=== PATIENT | female | born 1975 | race Caucasian/White ===

== ENCOUNTER 2020-06-17 20:23 | Inpatient (IN) | payer OTHER, SELFPAY ==
[2020-06-17 23:18] VITALS: BMI 39.0
--- NOTE | 2020-06-18 04:38 | PC.NURSE ---
Patient anxious/restless/tremulous. Provider earlier saw the patient, ordered Ativan 2 mg stat/administered as ordered/patient compliant/pending effect. Patient up out of room for bathroom use. Will continue to monitor.
--- NOTE | 2020-06-18 05:26 | PC.NURSE ---
Patient in bed appears restless, asking for more medication to make for sleep. VSS. Reporting Ativan 2 mg IM not effective. Patient presenting medication seeking behavior. Will continue to monitor the patient.
--- NOTE | 2020-06-18 06:22 | PC.NURSE ---
Patient continuously asking for more medication, requesting Benadryl IM for migraine. Patient advised to rest in bed. N clinician here for assessment. Patient seems engaged. Will continue to monitor.
--- NOTE | 2020-06-18 07:05 | PC.NURSE ---
REPORT RECIEVED. PT CURRENTLY STANDING IN DOORWAY TO ROOM, ASKING FOR MEDICATIONS, PLAN OF CARE EXPLAINED. PT IS INPATIENT BEDSEARCH.
[2020-06-18 07:42] VITALS: BP 185/109; PULSE 102; RESP 20; TEMP 36.6; O2SAT 96
--- NOTE | 2020-06-18 10:07 | PC.NURSE ---
PT RESTING, CONTINUES TO REPORT ANXIETY, PROVIDER AWARE.
[2020-06-18] MEDS: hydrOXYzine HCL 50 MG TABLET PO (10:16)
--- NOTE | 2020-06-18 12:42 | PC.NURSE ---
LATE ENTRY: PT COMPLAING OF NAUSEA AND VOMITTING, PT WAS SEEN BY TECH TO STICK HER FINGERS DOWN HER THROAT. PT REDIRECTED, PT ASKED TO LEAVE, [facility] CONTACTED, PT IS A SECTION 12, PLAN OF CARE EXPLAINED TO PT.
[2020-06-18 14:29] VITALS: BMI 38.9
[2020-06-18] MEDS: ALPRAZolam 0.5 MG TABLET PO ×2 (14:47→21:23)
--- NOTE | 2020-06-18 14:49 | PC.NURSE ---
PT in bed with complaints of anxiety. Asking for meds frequently. Medicated per eMAR. Cooperative and easily redirectable.
--- NOTE | 2020-06-18 16:35 | PC.NURSE ---
PT is laying restless in bed. Continues to get out of bed and ask for meds. Calm and cooperative for staff.
[2020-06-18 16:50] VITALS: BP 185/107; PULSE 91; RESP 20; TEMP 36.1; O2SAT 97
[2020-06-18] MEDS: LORazepam 1 MG TABLET 2 MG PO (16:56)
[2020-06-18] MEDS: Lidocaine HCl Viscous 2 % 15 ML SOLUTION MUCOUS MEM (18:35)
[2020-06-18] MEDS: Magnesium Hydrox/Alum Hydrox 30 ML ORAL.SUSP PO (18:35)
[2020-06-18 19:52] VITALS: BP 164/98; PULSE 80; RESP 20; TEMP 37; O2SAT 96
[2020-06-18 20:26] VITALS: BP 164/98; PULSE 96
[2020-06-18] MEDS: cloNIDine HCL 0.1 MG TABLET PO (20:26)
--- NOTE | 2020-06-18 21:28 | ED_ITS ---
HPI - Psych General Chief Complaint: Psychiatric Symptoms <Clemencia Francois NP - Last Filed: 06/19/20 01:42> Stated Complaint: crisis <Clemencia Francois NP - Last Filed: 06/19/20 01:42> Time Seen by Provider: 06/18/20 07:44 <Clemencia Francois NP - Last Filed: 06/19/20 01:42> Related Data Home Medications: Home Medications Medication Instructions Recorded Confirmed alprazolam 0.5 mg PO TID 06/17/20 06/18/20 ckhmrybddz-sngmavshrywlt-cesy 2 tab PO DAILY 06/17/20 06/18/20 [Fioricet] desvenlafaxine succinate 100 mg PO DAILY 06/17/20 06/18/20 <Clemencia Francois NP - Last Filed: 06/19/20 01:42> Allergies/Adverse Reactions: Allergies Allergy/AdvReac Type Severity Reaction Status Date / Time methocarbamol [From ROBAXIN] Allergy Intermediate NAUSEA & Unverified 06/04/20 18:47 VOMITING metoclopramide [From REGLAN] Allergy Intermediate PANIC Unverified 06/04/20 18:47 ATTACK sumatriptan [From IMITREX] Allergy Intermediate NAUSEA & Unverified 06/04/20 18:47 VOMITING hydrocodone [HYDROCODONE] Allergy Unknown UNKNOWN Unverified 06/04/20 18:47 tramadol [TRAMADOL] Allergy Unknown UNKNOWN Unverified 06/04/20 18:47 <Clemencia Francois NP - Last Filed: 06/19/20 01:42> [facility] Social History Social History: Social History Advance Directives: No Advance Directives Information Provided: No <Clemencia Francois NP - Last Filed: 06/19/20 01:42> Physical Exam Vital Signs and I&O and Narrative: Vital Signs and I&O: Vital Signs Temp 98.9 F 06/19/20 07:07 Pulse 115 H 06/19/20 07:07 Resp 18 06/19/20 07:07 BP 165/103 H 06/19/20 07:07 Pulse Ox 99 06/19/20 07:07 Intake & Output 06/18/20 06/19/20 06/19/20 18:59 06:59 18:59 Weight 99.79 kg Body Mass Index 38.9 <Clemencia Francois NP - Last Filed: 06/19/20 01:42> Vital Signs and I&O: Vital Signs Temp 98.9 F 06/19/20 07:07 Pulse 115 H 06/19/20 07:07 Resp 18 06/19/20 07:07 BP 165/103 H 06/19/20 07:07 Pulse Ox 99 06/19/20 07:07 Intake & Output 06/18/20 06/19/20 06/19/20 18:59 06:59 18:59 Weight 99.79 kg Body Mass Index 38.9 <Jerrell Salinas MD - Last Filed: 06/19/20 08:28> Course Course Hospital Course: patient was placed in psychiatric pod yesterday. Please refer to my prior note in Ts system for full H&P. At this time, 9:29 p.m. on June 18, 2020 patient is complaining of chest pain. We will order EKG and troponins. <Clemencia Francois NP - Last Filed: 06/19/20 01:42> Reevaluation(s) Reevaluation #1: I have reviewed the chart <Jerrell Salinas MD - Last Filed: 06/19/20 08:28> Time: 21:37 <Clemencia Francois NP - Last Filed: 06/19/20 01:42> 08:27 <Jerrell Salinas MD - Last Filed: 06/19/20 08:28> Reevaluation #2: blood pressure is 198/102, heart rate 87. Patient visibly anxious and withdrawing from benzos diazepam. We will order 10 mg of Valium based on the medications that she received last night which required multiple p.o. Ativan doses and Two IM injections. <Clemencia rFancois NP - Last Filed: 06/19/20 01 :42> MDM - Psych Restraints Face to Face Assessment: Face to Face Assessment: Current Situation: After assessment of the patient, a review of the pertinent medical record and a discussion with nursing staff, I feel the patient requires a restrain interv ention. Reaction To: [] Medical Condition: [] Behavioral State: [] Continued Need: [] <Clemencia Francois NP - Last Filed: 06/19/20 01:42> Medical Records Attestation: I reviewed the patient's medical records. <Clemencia Francois NP - Last Filed: 06/19/20 01:42> Lab Data Labs: Lab Results 06/18/20 Range/Units 22:50 Troponin I High Sens < 3.5 (<3.5-17.0) ng/L <Clemencia Francois NP - Last Filed: 06/19/20 01:42> Lab Results 06/18/20 Range/Units 22:50 Troponin I High Sens < 3.5 (<3.5-17.0) ng/L <Jerrell Salinas MD - Last Filed: 06/19/20 08:28> ECG Data Attestation: I personally reviewed and interpreted this ECG as follows: <Clemencia Francois NP - Last Filed: 06/19/20 01:42> ECG interpretation date: 06/18/20 <Clemencia Francois NP - Last Filed: 06/19/20 01:42> ECG interpretation time: 21:36 <Clemencia Francois NP - Last Filed: 06/19/20 01:42> Interpretation: Normal sinus rhythm, 90 beats per minute with short p.r. interval at 106 milliseconds. No indication of ST elevation or depression. Artifact present. PVCs no longer present when compared to EKG on May 31, 2020 <Clemencia Francois NP - Last Filed: 06/19/20 01:42> Discharge Plan Discharge Clinical Impression: Suicidal ideation, Acute anxiety Bipolar disorder Qualifiers: Active/Remission status: currently active Current bipolar episode type: manic Current episode severity: moderate Qualified Code(s): F31.12 - Bipolar disorder, current episode manic without psychotic features, moderate <Clemencia Francois NP - Last Filed: 06/19/20 01:42> Patient Disposition: Admitted As Inpatient <Clemencia Francois NP - Last Filed: 06/19/20 01:42>
[2020-06-18 21:33] VITALS: BP 198/102; PULSE 87; RESP 20; TEMP 36.7; O2SAT 97
--- NOTE | 2020-06-18 21:36 | ECG_ITS ---
Test Reason : CHEST PAIN Blood Pressure : / mmHG Vent. Rate : 090 BPM Atrial Rate : 090 BPM P-R Int : 106 ms QRS Dur : 078 ms QT Int : 392 ms P-R-T Axes : 008 -06 037 degrees QTc Int : 479 ms Poor data quality, interpretation may be adversely affected Sinus rhythm with short DC Otherwise normal ECG When compared with ECG of 31-MAY-2020 20:38, Premature ventricular complexes are no longer Present Referred By: Clemencia Scott Electronically Signed By:SIRIA PAUL
[2020-06-18] MEDS: diazePAM 5 MG TABLET 10 MG PO (21:44)
--- NOTE | 2020-06-18 21:45 | PC.NURSE ---
Patient reported having anxiety 10/10, diaphoretic, vital assess, BP 198/102 post clonidine 0.1 mg at 2025. Provider notified, patient is withdrawing from benzos, Valium 10 mg ordered/acknowledged/administered as ordered/patient compliant. Patient reported sharp chest pain EKG ordered/completed/resulted/unremarkable. Troponin drawn/resulted/negative. Patient seems sleeping. Will continue to monitor.
[2020-06-18 23:32] LABS: Troponin-I High Sensitivity < 3.5 ng/L (<3.5-17.0)
[2020-06-19] VITALS (8 sets, daily range): BP systolic 136–165; BP diastolic 80–103; PULSE 22–115; RESP 18–22; TEMP 36.5–37.2; O2SAT 96–99
[2020-06-19] MEDS: Magnesium Hydrox/Alum Hydrox 30 ML ORAL.SUSP PO (02:29)
--- NOTE | 2020-06-19 02:30 | PC.NURSE ---
Patient slept for over two hours, woke up asking more medication, Vital assessed f/u BP 141/96 HR 107. Patient made aware medication is not due yet. Compliant GI upset requesting Tums and Maalox. Provider made aware ordered Maalox/administered as ordered. Patient advised not to induce vomit and educated the effects of vomit on upper GI system. Will continue to monitor the patient
--- NOTE | 2020-06-19 04:45 | PC.NURSE ---
Patient continues asking for more Xanax, advised to use coping skills, showered, currently in her bed lying, watching TV. Will continue to monitor.
--- NOTE | 2020-06-19 06:11 | PC.NURSE ---
Patient in bed appears sleeping. Shower helped sleep. No distress observed at this point. Respiration +/=/non-labored bilaterally. Will continue to monitor.
[2020-06-19] MEDS: LORazepam 1 MG TABLET 2 MG PO ×2 (07:11→18:32)
[2020-06-19] MEDS: ALPRAZolam 0.5 MG TABLET PO ×3 (09:37→21:32)
[2020-06-19] MEDS: Ibuprofen 600 MG TABLET PO (09:37)
--- NOTE | 2020-06-19 09:55 | PC.NURSE ---
Pt is resting in bed, c/o headache, medicated per emar. No further symptoms of withdrawals noted.
[2020-06-19 10:30] LABS: SARS COV2 PCR INHOUSE NEGATIVE (Negative)
--- NOTE | 2020-06-19 11:48 | PC.NURSE ---
MIGRAINE PATIENT C/O MIGRAINE WITH 7/10 HEADACHE, NOTIFIED PROVIDER, PATIENT RECENTLY HAD MOTRIN FOR PAIN, NO NEW ORDERS AT THIS TIME, WILL CONTINUE TO MONITOR.
--- NOTE | 2020-06-19 12:03 | PC.NURSE ---
PATIENT CONTINUES TO COME TO NURSING STATION STATES SHE FEELS DEHYDRATED AND FEELS SHE SHOULD BE SEEN IN THE MAIN ED FOR DEHYDRATION, SHE ALSO STATES THAT SHE CONTINUES TO HAVE A HEADACHE DESPITE TAKING HE MOTRIN, WILL NOTIFY THE PROVIDER.
--- NOTE | 2020-06-19 14:15 | PC.NURSE ---
PATIENT CURRENTLY SLEEPING IN ROOM
--- NOTE | 2020-06-19 16:47 | PC.NURSE ---
PATIENT A&OX3, PATIENT AWAITING TO GO TO M5, PATIENT PRESENTLY IN ROOM LAYING DOWN, IS CALM/COMPLIANT, RR EQUAL AND NON LABORED, WILL CONTINUE TO MONITOR.
--- NOTE | 2020-06-19 18:26 | PC.NURSE ---
PT COMPLAINTS PATIENT HAS CONTINUED COMPLAINTS, CURRENTLY SHE IS C/O HEADACHE, AND INCREASED ANXIETY, PT ALSO REQUESTING A GI COCKTAIL SHE HAD ONE YESTERDAY. PROVIDER WAS NOTIFIED.
[2020-06-19] MEDS: Acetaminophen 325 MG TABLET 650 MG PO (18:31)
[2020-06-19] MEDS: Lidocaine HCl Viscous 2 % 15 ML SOLUTION 10 ML MUCOUS MEM (18:37)
[2020-06-19] MEDS: Magnesium Hydrox/Alum Hydrox 30 ML ORAL.SUSP 15 ML PO (18:37)
--- NOTE | 2020-06-19 18:38 | PC.NURSE ---
PATIENT MEDICATED PER NEW ORDERS
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
[2020-06-20] MEDS: hydrOXYzine HCL 25 MG TABLET PO (01:23)
[2020-06-20] MEDS: traZODone HCL 50 MG TABLET PO (01:24)
[2020-06-20] MEDS: Acetaminophen 325 MG TABLET 650 MG PO (01:24)
[2020-06-20] MEDS: ALPRAZolam 0.5 MG TABLET PO ×2 (04:10→09:08)
[2020-06-20 07:11] VITALS: BP 128/85; PULSE 81; RESP 18; TEMP 36.8
[2020-06-20] MEDS: Venlafaxine HCl ER 150 MG CAP.ER.24H PO (09:42)
[2020-06-20 10:00] VITALS: BP 140/81; PULSE 86; RESP 20
--- NOTE | 2020-06-20 11:45 | HO.PS.ADMBH ---
HPI Chief Complaint: crisis Diagnostics Vital Signs (24Hr): Vital Signs - 24 hr 06/19/20 12:00 06/19/20 14:07 06/19/20 16:26 Temperature 98.8 F 98.6 F Pulse Rate 22 L 74 Respiratory Rate 22 H 20 20 Blood Pressure 146/88 H 136/97 H Pulse Oximetry 98 97 06/19/20 18:00 06/19/20 20:00 06/20/20 07:11 Temperature 98.7 F 98.3 F Pulse Rate 95 81 Respiratory Rate 20 18 18 Blood Pressure 142/80 H 128/85 Pulse Oximetry 96 Body Mass Index 38.9 Labs Labs: Laboratory Results - last 48 hr 06/18/20 06/19/20 22:50 09:00 Troponin I High Sens < 3.5 Coronavirus (PCR) NEGATIVE Meds/Allergies Meds Home Medications Medication Instructions Recorded Confirmed Type alprazolam 0.5 mg PO TID 06/17/20 06/18/20 History yqhclnqngt-cvchnblnhrlzc-ndkr 2 tab PO DAILY 06/17/20 06/18/20 History [Fioricet] desvenlafaxine succinate 100 mg PO DAILY 06/17/20 06/18/20 History Allergies Allergies Allergy/AdvReac Type Severity Reaction Status Date / Time methocarbamol [From ROBAXIN] Allergy Intermediate NAUSEA & Unverified 06/04/20 18:47 VOMITING metoclopramide [From REGLAN] Allergy Intermediate PANIC Unverified 06/04/20 18:47 ATTACK sumatriptan [From IMITREX] Allergy Intermediate NAUSEA & Unverified 06/04/20 18:47 VOMITING hydrocodone [HYDROCODONE] Allergy Unknown UNKNOWN Unverified 06/04/20 18:47 tramadol [TRAMADOL] Allergy Unknown UNKNOWN Unverified 06/04/20 18:47 Assessment & Plan Certification I certify that partial hospital treatment is medically necessary due to the symptoms and problems resulting from the patient's mental illness and the failure to treat the patient at the partial hospital level of care would likely result in the patient requiring inpatient psychiatric care which could not be prevented at a less intensive level of care.
[2020-06-20] MEDS: diazePAM 10 MG TABLET PO (12:03)
[2020-06-20] MEDS: diazePAM 5 MG TABLET PO ×2 (14:20→20:21)
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
[2020-06-20] MEDS: Venlafaxine HCl ER 75 MG CAP.ER.24H PO (16:54)
[2020-06-20 19:00] VITALS: BP 135/91; PULSE 102
[2020-06-20] MEDS: cloNIDine HCL 0.1 MG TABLET PO ×2 (19:00→22:58)
[2020-06-20] MEDS: risperiDONE 0.5 MG TABLET PO (20:21)
[2020-06-20] MEDS: hydrOXYzine HCL 25 MG TABLET 50 MG PO ×2 (20:22→22:58)
[2020-06-20] MEDS: OXcarbazepine 150 MG TABLET PO (20:22)
[2020-06-20 20:31] VITALS: BP 138/86; PULSE 80; TEMP 37.1
[2020-06-20] MEDS: Magnesium Hydrox/Alum Hydrox 30 ML ORAL.SUSP PO (21:07)
[2020-06-20 21:19] VITALS: BP 135/91; PULSE 102; TEMP 37.1
[2020-06-20 22:58] VITALS: BP 126/68; PULSE 130
[2020-06-21] VITALS (7 sets, daily range): BP systolic 110–135; BP diastolic 58–83; PULSE 80–114; RESP 16–18; TEMP 36.6–37.3; O2SAT 99
[2020-06-21] MEDS: Acetaminophen 325 MG TABLET 650 MG PO (06:46)
[2020-06-21] MEDS: cloNIDine HCL 0.1 MG TABLET PO ×3 (06:47→17:57)
[2020-06-21] MEDS: Venlafaxine HCl ER 150 MG CAP.ER.24H PO (08:46)
[2020-06-21] MEDS: OXcarbazepine 150 MG TABLET PO ×2 (08:46→14:07)
[2020-06-21] MEDS: diazePAM 5 MG TABLET PO ×3 (08:47→23:16)
--- NOTE | 2020-06-21 12:29 | HO.PSYCHPN ---
Assessment & Plan Assessment & Plan (1) Medication addiction, episodic: Status: Acute Code(s): F19.20 - Other psychoactive substance dependence, uncomplicated Assessment and Plan: pt doesn't feel opiate or benzo are problem (2) Headache: Status: Acute Code(s): R51.9 - Headache, unspecified Assessment and Plan: ongoing issues with this - will consult dr almonte (3) Bipolar disorder: Qualifiers: Active/Remission status: currently active Current bipolar episode type: manic Current episode severity: moderate Qualified Code(s): F31.12 - Bipolar disorder, current episode manic without psychotic features, moderate Status: Acute Code(s): F31.9 - Bipolar disorder, unspecified Assessment and Plan: started on trielptal with good effect (4) Acute anxiety: Status: Acute Code(s): F41.9 - Anxiety disorder, unspecified Assessment and Plan: on valium thru day Greater than 50% of the session was spent on counseling and/or coordination of care Subjective Subjective Date of Service: 06/21/20 Reason For Visit: Pt presented multiple time to ER with increase anx Subjective Notes: 3 Day Interim History: Pt feeling a bit better today, trouble sleeping , headaches woke her up Medication Compliance: Yes Side effects from medications: No Attending Groups: Yes Review of Systems Acute medical concerns: No Medical Review of Systems: changed Review of Systems: ongoing headache but more manageable not as much n/v no sys opiate withdrawl Mental Status Exam Mental Status Exam Narrative: more appropriately dressed and groomed, today less shakey Patient Appearance: Well Grooomed Patient Orientation: Person, Place, Time and Situation Level of Consciousness: Awake and Alert Patient Behavior: Appropriate Mood Description: Anxious Affect Description: Calm Patient Cognition Impaired: No Ability to Follow Directions: Good Speech Pattern: Clear Hallucinations: None Thought Process: Intact and Goal Oriented Thought Content: positive for Intact, positive for Racing (at night) and positive for Goal Oriented Depressive Symptoms: Insomnia, Muscle Tension and Unexplained Headaches Judgement: Fair Diagnostics Vital Signs (24Hr): Vital Signs - 24 hr 06/20/20 19:00 06/20/20 20:31 06/20/20 21:19 Temperature 98.7 F 98.7 F Pulse Rate 102 H 80 102 H Respiratory Rate Blood Pressure 135/91 H 138/86 135/91 H Pulse Oximetry 06/20/20 22:58 06/21/20 06:10 06/21/20 06:47 Temperature 99.2 F Pulse Rate 130 H 90 114 H Respiratory Rate 16 Blood Pressure 126/68 115/59 L 133/82 Pulse Oximetry 99 Body Mass Index Medications Medications Current Medications Generic Name Dose Route Start Last Admin Trade Name Freq PRN Reason Stop Dose Admin Acetaminophen 650 mg 06/19/20 23:31 06/21/20 06:46 Acetaminophen 325 Mg Tablet PO 650 mg Q6H PRN Administration Headache/Pain Mild Scale (1-3) Acetaminophen/Butalbital/Caffeine 2 tab 06/20/20 03:33 06/21/20 08:47 Butalb/Acetamin/Caff 50/325/40 1 Tab Tablet PO 2 tab DAILY PRN Administration migraine Al Hydroxide/Mg Hydroxide 30 ml 06/19/20 23:31 06/20/20 21:07 Magnesium Hydrox/Alum Hydrox 30 Ml Oral.Susp PO 30 ml Q6H PRN Administration Heartburn/Nausea Clonidine HCl 0.1 mg 06/20/20 18:47 06/21/20 06:47 Clonidine Hcl 0.1 Mg Tablet PO 0.1 mg Q4H PRN Administration opiate withdrawl Protocol Diazepam 5 mg 06/20/20 15:00 06/21/20 08:47 Diazepam 5 Mg Tablet PO 5 mg TID NICOLAS Administration Hydroxyzine HCl 50 mg 06/20/20 15:04 06/20/20 22:58 Hydroxyzine Hcl 25 Mg Tablet PO 50 mg BEDTIME MRX1 PRN Administration Anxiety Hydroxyzine HCl 25 mg 06/20/20 17:07 Hydroxyzine Hcl 25 Mg Tablet PO Q6H PRN anxiety/opiate withdrawl Magnesium Hydroxide 30 ml 06/19/20 23:31 Milk Of Magnesia 30 Ml Oral.Susp PO DAILY PRN Constipation Ondansetron HCl 4 mg 06/20/20 13:35 06/20/20 20:26 Ondansetron Odt 4 Mg Tab.Rapdis TRANSLINGU 4 mg Q6H PRN Administration Nausea Oxcarbazepine 150 mg 06/20/20 21:00 06/21/20 08:46 Oxcarbazepine 150 Mg Tablet PO 150 mg TID NICOLAS Administration Risperidone 0.5 mg 06/20/20 21:00 06/20/20 20:21 Risperidone 0.5 Mg Tablet PO 0.5 mg BEDTIME NICOLAS Administration Trazodone HCl 50 mg 06/20/20 15:04 Trazodone Hcl 50 Mg Tablet PO BEDTIME MRX1 PRN Insomnia Venlafaxine HCl 150 mg 06/20/20 09:00 06/21/20 08:46 Venlafaxine Hcl Er 150 Mg Cap.Er.24h PO 150 mg DAILY NICOLAS Administration Venlafaxine HCl 75 mg 06/20/20 17:00 06/20/20 16:54 Venlafaxine Hcl Er 75 Mg Cap.Er.24h PO 75 mg DAILY@1700 NICOLAS Administration will inc hs trielptal and change clonidine to night med Allergies Allergies Allergy/AdvReac Type Severity Reaction Status Date / Time methocarbamol [From ROBAXIN] Allergy Intermediate NAUSEA & Unverified 06/04/20 18:47 VOMITING metoclopramide [From REGLAN] Allergy Intermediate PANIC Unverified 06/04/20 18:47 ATTACK sumatriptan [From IMITREX] Allergy Intermediate NAUSEA & Unverified 06/04/20 18:47 VOMITING hydrocodone [HYDROCODONE] Allergy Unknown UNKNOWN Unverified 06/04/20 18:47 tramadol [TRAMADOL] Allergy Unknown UNKNOWN Unverified 06/04/20 18:47
[2020-06-21] MEDS: Venlafaxine HCl ER 75 MG CAP.ER.24H PO (16:59)
[2020-06-21] MEDS: risperiDONE 0.5 MG TABLET PO (23:16)
[2020-06-21] MEDS: OXcarbazepine 300 MG TABLET PO (23:16)
[2020-06-22] VITALS (7 sets, daily range): BP systolic 102–142; BP diastolic 52–80; PULSE 84–118; RESP 16; TEMP 36.4–37.2
[2020-06-22] MEDS: hydrOXYzine HCL 25 MG TABLET PO ×2 (06:38→12:33)
[2020-06-22] MEDS: Venlafaxine HCl ER 150 MG CAP.ER.24H PO (08:23)
[2020-06-22] MEDS: diazePAM 5 MG TABLET PO (08:24)
[2020-06-22] MEDS: OXcarbazepine 150 MG TABLET PO ×2 (08:24→12:32)
--- NOTE | 2020-06-22 09:33 | P.PNPSI_ITS ---
Assessment & Plan Assessment & Plan (1) Bipolar disorder: Qualifiers: Active/Remission status: currently active Current bipolar episode type: manic Current episode severity: moderate Qualified Code(s): F31.12 - Bipolar disorder, current episode manic without psychotic features, moderate Status: Acute Code(s): F31.9 - Bipolar disorder, unspecified Assessment and Plan: continue medications (2) Suicidal ideation: Status: Acute Code(s): R45.851 - Suicidal ideations Assessment and Plan: monitor for safety (3) Acute anxiety: Status: Acute Code(s): F41.9 - Anxiety disorder, unspecified Assessment and Plan: switch to lorazepam from Valium. Scheduled doses of lorazepam and clonidine if blood pressure holds (4) Medication addiction, episodic: Status: Acute Code(s): F19.20 - Other psychoactive substance dependence, uncomplicated Assessment and Plan: continue monitoring medication use and education Greater than 50% of the session was spent on counseling and/or coordination of care Subjective Subjective Date of Service: 06/22/20 Reason For Visit: Pt presented multiple time to ER with increase anx Subjective Notes: Conditional Voluntary Interim History: with high anxiety and panic. Almost uninterrupted hy perventilation. Patient has ice pack. We discussed medication changes. Patient fell clonidine was helpful and will switch from Valium to lorazepam. History of overuse of medication noted but will monitor Medication Compliance: Yes Side effects from medications: No Attending Groups: Intermittent Mental Status Exam Mental Status Exam Patient Appearance: Well Grooomed Patient Orientation: Person, Place, Time and Situation Level of Consciousness: Awake and Alert Patient Behavior: Appropriate and Anxious Mood Description: Anxious ( Severe panic and hyperventilation noted) and Nervous Affect Description: Calm and Anxious Patient Cognition Impaired: No Ability to Follow Directions: Good Speech Pattern: Clear Hallucinations: None Thought Process: Intact and Goal Oriented Thought Content: positive for Intact, positive for Racing (at night) and positive for Goal Oriented Depressive Symptoms: Insomnia, Muscle Tension and Unexplained Headaches Judgement: Fair Diagnostics Vital Signs (24Hr): Vital Signs - 24 hr 06/21/20 10:00 06/21/20 14:00 06/21/20 17:57 Temperature 98 F Pulse Rate 88 87 107 H Respiratory Rate 18 17 Blood Pressure 119/62 135/83 116/80 Pulse Oximetry 99 06/21/20 18:00 06/21/20 23:15 06/22/20 06:10 Temperature 98.5 F 98.4 F 97.5 F Pulse Rate 107 H 80 114 H Respiratory Rate 16 Blood Pressure 116/80 110/58 L 108/63 Pulse Oximetry Body Mass Index 38.9 Medications Medications Current Medications Generic Name Dose Route Start Last Admin Trade Name Freq PRN Reason Stop Dose Admin Acetaminophen 650 mg 06/19/20 23:31 06/21/20 06:46 Acetaminophen 325 Mg Tablet PO 650 mg Q6H PRN Administration Headache/Pain Mild Scale (1-3) Acetaminophen/Butalbital/Caffeine 2 tab 06/20/20 03:33 06/21/20 08:47 Butalb/Acetamin/Caff 50/325/40 1 Tab Tablet PO 2 tab DAILY PRN Administration migraine Al Hydroxide/Mg Hydroxide 30 ml 06/19/20 23:31 06/20/20 21:07 Magnesium Hydrox/Alum Hydrox 30 Ml Oral.Susp PO 30 ml Q6H PRN Administration Heartburn/Nausea Clonidine HCl 0.1 mg 06/21/20 20:01 Clonidine Hcl 0.1 Mg Tablet PO BEDTIME MRX1 PRN opiate withdrawl Protocol Diazepam 5 mg 06/20/20 15:00 06/22/20 08:24 Diazepam 5 Mg Tablet PO 5 mg TID NICOLAS Administration Hydroxyzine HCl 50 mg 06/20/20 15:04 06/20/20 22:58 Hydroxyzine Hcl 25 Mg Tablet PO 50 mg BEDTIME MRX1 PRN Administration Anxiety Hydroxyzine HCl 25 mg 06/20/20 17:07 06/22/20 06:38 Hydroxyzine Hcl 25 Mg Tablet PO 25 mg Q6H PRN Administration anxiety/opiate withdrawl Magnesium Hydroxide 30 ml 06/19/20 23:31 Milk Of Magnesia 30 Ml Oral.Susp PO DAILY PRN Constipation Ondansetron HCl 4 mg 06/20/20 13:35 06/22/20 08:24 Ondansetron Odt 4 Mg Tab.Rapdis TRANSLINGU 4 mg Q6H PRN Administration Nausea Oxcarbazepine 150 mg 06/22/20 08:30 06/22/20 08:24 Oxcarbazepine 150 Mg Tablet PO 150 mg BID@0830,1330 NICOLAS Administration Oxcarbazepine 300 mg 06/21/20 21:00 06/21/20 23:16 Oxcarbazepine 300 Mg Tablet PO 300 mg BEDTIME NICOLAS Administration Risperidone 0.5 mg 06/20/20 21:00 06/21/20 23:16 Risperidone 0.5 Mg Tablet PO 0.5 mg BEDTIME NICOLAS Administration Trazodone HCl 50 mg 06/20/20 15:04 Trazodone Hcl 50 Mg Tablet PO BEDTIME MRX1 PRN Insomnia Venlafaxine HCl 150 mg 06/20/20 09:00 06/22/20 08:23 Venlafaxine Hcl Er 150 Mg Cap.Er.24h PO 150 mg DAILY NICOLAS Administration Venlafaxine HCl 75 mg 06/20/20 17:00 06/21/20 16:59 Venlafaxine Hcl Er 75 Mg Cap.Er.24h PO 75 mg DAILY@1700 NICOLAS Administration Allergies Allergies Allergy/AdvReac Type Severity Reaction Status Date / Time methocarbamol [From ROBAXIN] Allergy Intermediate NAUSEA & Unverified 06/04/20 18:47 VOMITING metoclopramide [From REGLAN] Allergy Intermediate PANIC Unverified 06/04/20 18:47 ATTACK sumatriptan [From IMITREX] Allergy Intermediate NAUSEA & Unverified 06/04/20 18:47 VOMITING hydrocodone [HYDROCODONE] Allergy Unknown UNKNOWN Unverified 06/04/20 18:47 tramadol [TRAMADOL] Allergy Unknown UNKNOWN Unverified 06/04/20 18:47
--- NOTE | 2020-06-22 10:44 | P.CNNE_ITS ---
History of Present Illness Data of Consult Primary Care Provider: Unknown Physician Review of Systems Review of Systems: Mental Status: Normal attention, orientation, memory and anxious and depressed affect. Cranial Nerves: Pupils are equal, round and reactive to light. External occular muscles are intact. Visual pryor are full. Face is symmetrical. Facial sensations are normal. Tongue is midline. Palate elevates symmetrically. Shoulder shrugging is normal. Hearing to bedside conversation is normal. Motor Examination: Normal muscle tone, bulk and strength, Deep tendon reflexes are 2+ , Plantars are flexor . Sensory Exam: .. Coordination: no ataxia, no titubation. Gait Exam: Within normal limits. Cerebellar Signs: [id number] and [id number] is normal.. Extrapyramidal System: No tremor, rigidity with normal facial expressions. Pronator Drift: not present . Involuntary Movements: No tremors seen . Speech: Normal. ENT: Reports Normal hearing present Neurologic: Reports Normal hearing present [facility] Social History Social History Currently Displaying Signs/Symptoms of Drug Intoxication Withdrawal: No Advance Directives: No Advance Directives Information Provided: No Suicidal Behavior: Aborted suicide attempts [place] Symptoms: Anxiety Access to Firearms: No Do you have thoughts of harming others: None Do you have a plan to hurt others: No Plan Meds Allergies Allergy/AdvReac Type Severity Reaction Status Date / Time methocarbamol [From ROBAXIN] Allergy Intermediate NAUSEA & Unverified 06/04/20 18:47 VOMITING metoclopramide [From REGLAN] Allergy Intermediate PANIC Unverified 06/04/20 18:47 ATTACK sumatriptan [From IMITREX] Allergy Intermediate NAUSEA & Unverified 06/04/20 18:47 VOMITING hydrocodone [HYDROCODONE] Allergy Unknown UNKNOWN Unverified 06/04/20 18:47 tramadol [TRAMADOL] Allergy Unknown UNKNOWN Unverified 06/04/20 18:47 Home Medications Medication Instructions Recorded Confirmed Type alprazolam 0.5 mg PO TID 06/17/20 06/18/20 History [id number]-wpggqziqrgded-[id number] 2 tab PO DAILY 06/17/20 06/18/20 History [Fioricet] desvenlafaxine succinate 100 mg PO DAILY 06/17/20 06/18/20 History Physical Exam Vital Signs and I&O and Narrative: Vital Signs and I&O: Vital Signs Temp 97.5 F 06/22/20 06:10 Pulse 114 H 06/22/20 06:10 Resp 16 06/22/20 06:10 BP 108/63 06/22/20 06:10 Pulse Ox 99 06/21/20 14:00 Body Mass Index 38.9 Mental status examination: Normal attention, orientation, very anxious affect Cranial Nerve examination: Pupils are equal, round and reactive to light. External ocular muscles are intact. Visual pryor are full. Face is symmetrical. Facial sensations are normal. Tongue is midline. Palate elevates symmetrically. Shoulder shrugging is normal. Hearing to bedside conversation is normal. Motor examination: DTRs are trace Cerebellar examination: Finger to nose is normal. Gait: Within normal limits. Speech: Normal. Extrapyramidal system: Within normal limits. Involuntary movements: None. GENERAL APPEARANCE: normal, in no acute distress. HEAD: normocephalic, atraumatic. EYES: sclera non-icteric, conjunctiva clear. EARS: auditory canal clear, tympanic membrane intact, clear. NOSE: no lesions. ORAL CAVITY: gums normal, mucosa moist, no lesions. THROAT: clear. NECK/THYROID: Severe paraspinal muscle spasm SKIN: no rashes, no significant birthmarks. HEART: S1, S2 normal, no murmurs. LUNGS: clear anteriorly and posteriorly. CHEST: no gross rib deformity, clear to auscultation. EXTREMITIES: no edema. PSYCH: alert, oriented, cognitive function intact, cooperative with exam. Neuro: Cranial nerves: Yes Normal hearing present Assessment and Plan (1) Headache: Status: Acute Impression: a: chronic intractable migraine with menstrual migraine b: severe anxiety c: cervical paraspinal muscle spasm likely due to pscyhological issues rec: a: aggressive treatment of anxiety/deprssion b: PRN oxycodone 5mg one qd for menstrual migraine c: I have tried most conventional medicines for headaches with her and none have worked, likely due to underlying psychological issues. Its treatment may help.
[2020-06-22] MEDS: cloNIDine HCL 0.1 MG TABLET PO ×3 (13:32→20:12)
[2020-06-22] MEDS: LORazepam 1 MG TABLET PO ×3 (13:54→20:12)
[2020-06-22] MEDS: Venlafaxine HCl ER 75 MG CAP.ER.24H PO (16:22)
[2020-06-22] MEDS: risperiDONE 0.5 MG TABLET PO (20:11)
[2020-06-22] MEDS: OXcarbazepine 300 MG TABLET PO (20:11)
[2020-06-23] VITALS (8 sets, daily range): BP systolic 111–160; BP diastolic 57–105; PULSE 87–125; RESP 22; TEMP 36.6–36.7; O2SAT 99–100
[2020-06-23] MEDS: LORazepam 1 MG TABLET PO ×5 (03:31→20:58)
[2020-06-23] MEDS: hydrOXYzine HCL 25 MG TABLET PO (05:06)
[2020-06-23] MEDS: cloNIDine HCL 0.1 MG TABLET PO ×4 (05:06→20:57)
[2020-06-23] MEDS: Venlafaxine HCl ER 150 MG CAP.ER.24H PO (08:44)
[2020-06-23] MEDS: OXcarbazepine 150 MG TABLET PO ×2 (08:44→13:34)
--- NOTE | 2020-06-23 09:35 | HO.PSYCHPN ---
Assessment & Plan Assessment & Plan (1) Suicidal ideation: Status: Acute Code(s): R45.851 - Suicidal ideations Assessment and Plan: safety plan 15 minutes checks (2) Acute anxiety: Status: Acute Code(s): F41.9 - Anxiety disorder, unspecified Assessment and Plan: continue with scheduled doses of lorazepam and clonidine (3) Medication addiction, episodic: Status: Acute Code(s): F19.20 - Other psychoactive substance dependence, uncomplicated Assessment and Plan: discussed responsible use Greater than 50% of the session was spent on counseling and/or coordination of care Patient educated on: diagnosis and medication risk/benefits Informed Consent: understands Reason for contiued inpatient stay Substantial Risk for: rapid decompensation Subjective Subjective Date of Service: 06/23/20 Reason For Visit: Pt presented multiple time to ER with increase anx Subjective Notes: Conditional Voluntary and 3 Day Interim History: Patient remains anxious and panicky. Had a difficult night. Claims Ativan was not effective as she had explosive diarrhea. Non medication approaches discussed. Later this morning patient was feeling somewhat better. No medication changes today appropriate and responsible medication use discussed with patient. We discussed FMLA and paperwork was completed will continue to monitor medication use Medication Compliance: Yes Side effects from medications: No Attending Groups: Yes Mental Status Exam Mental Status Exam Patient Appearance: Fatigued Patient Orientation: Person, Place, Time and Situation Level of Consciousness: Awake and Appropriate Patient Behavior: Appropriate and Restless ( improved) Behavior Comments: decrease hyperventilation noted Mood Description: Anxious and Labile Affect Description: Anxious, Labile and Apprehensive Patient Cognition Impaired: No Ability to Follow Directions: Excellent Speech Pattern: Clear and Rapid Memory Description: Intact Hallucinations: None Delusions: Not Present Perceptual Disturbances: Depersonalization Thought Process: Intact Thought Content: positive for Intact and positive for Suicidal Ideation ( denied) Depressive Symptoms: Increased Anxiety, Difficulty Sleeping and Changes in Appetite Abnormal Motor Activity Signs and Symptoms: Agitation Judgement: Fair Diagnostics Vital Signs (24Hr): Vital Signs - 24 hr 06/22/20 13:04 06/22/20 13:32 06/22/20 16:25 Temperature 98.8 F Pulse Rate 84 84 108 H Respiratory Rate Blood Pressure 142/80 H 142/80 H 141/80 H Pulse Oximetry 06/22/20 17:00 06/22/20 20:08 06/22/20 20:12 Temperature 98.9 F 98.2 F Pulse Rate 108 H 118 H 118 H Respiratory Rate Blood Pressure 141/80 H 102/52 L 102/52 L Pulse Oximetry 06/23/20 05:00 06/23/20 05:06 06/23/20 06:20 Temperature 98.1 F Pulse Rate 125 H 124 H 120 H Respiratory Rate 22 H Blood Pressure 143/70 H 143/70 H Pulse Oximetry 99 100 06/23/20 08:46 Temperature Pulse Rate 104 H Respiratory Rate Blood Pressure 160/105 H Pulse Oximetry Body Mass Index 38.9 Medications Medications Current Medications Generic Name Dose Route Start Last Admin Trade Name Freq PRN Reason Stop Dose Admin Acetaminophen 650 mg 06/19/20 23:31 06/21/20 06:46 Acetaminophen 325 Mg Tablet PO 650 mg Q6H PRN Administration Headache/Pain Mild Scale (1-3) Acetaminophen/Butalbital/Caffeine 2 tab 06/20/20 03:33 06/22/20 10:46 Butalb/Acetamin/Caff 50/325/40 1 Tab Tablet PO 2 tab DAILY PRN Administration migraine Al Hydroxide/Mg Hydroxide 30 ml 06/19/20 23:31 06/20/20 21:07 Magnesium Hydrox/Alum Hydrox 30 Ml Oral.Susp PO 30 ml Q6H PRN Administration Heartburn/Nausea Clonidine HCl 0.1 mg 06/22/20 13:04 06/23/20 05:06 Clonidine Hcl 0.1 Mg Tablet PO 0.1 mg TID PRN Administration opiate withdrawal Protocol Clonidine HCl 0.1 mg 06/22/20 15:00 06/23/20 08:46 Clonidine Hcl 0.1 Mg Tablet PO 0.1 mg TID NICOLAS Administration Protocol Hydroxyzine HCl 50 mg 06/20/20 15:04 06/20/20 22:58 Hydroxyzine Hcl 25 Mg Tablet PO 50 mg BEDTIME MRX1 PRN Administration Anxiety Hydroxyzine HCl 25 mg 06/20/20 17:07 06/23/20 05:06 Hydroxyzine Hcl 25 Mg Tablet PO 25 mg Q6H PRN Administration anxiety/opiate withdrawl Lorazepam 1 mg 06/22/20 13:40 06/23/20 08:45 Lorazepam 1 Mg Tablet PO 1 mg QID NICOLAS Administration Lorazepam 1 mg 06/22/20 13:37 06/23/20 03:31 Lorazepam 1 Mg Tablet PO 1 mg BID PRN Administration Anxiety Magnesium Hydroxide 30 ml 06/19/20 23:31 Milk Of Magnesia 30 Ml Oral.Susp PO DAILY PRN Constipation Ondansetron HCl 4 mg 06/20/20 13:35 06/23/20 05:06 Ondansetron Odt 4 Mg Tab.Rapdis TRANSLINGU 4 mg Q6H PRN Administration Nausea Oxcarbazepine 150 mg 06/22/20 08:30 06/23/20 08:44 Oxcarbazepine 150 Mg Tablet PO 150 mg BID@0830,1330 NICOLAS Administration Oxcarbazepine 300 mg 06/21/20 21:00 06/22/20 20:11 Oxcarbazepine 300 Mg Tablet PO 300 mg BEDTIME NICOLAS Administration Risperidone 0.5 mg 06/20/20 21:00 06/22/20 20:11 Risperidone 0.5 Mg Tablet PO 0.5 mg BEDTIME NICOLAS Administration Trazodone HCl 50 mg 06/20/20 15:04 Trazodone Hcl 50 Mg Tablet PO BEDTIME MRX1 PRN Insomnia Venlafaxine HCl 150 mg 06/20/20 09:00 06/23/20 08:44 Venlafaxine Hcl Er 150 Mg Cap.Er.24h PO 150 mg DAILY NICOLAS Administration Venlafaxine HCl 75 mg 06/20/20 17:00 06/22/20 16:22 Venlafaxine Hcl Er 75 Mg Cap.Er.24h PO 75 mg DAILY@1700 NICOLAS Administration Allergies Allergies Allergy/AdvReac Type Severity Reaction Status Date / Time methocarbamol [From ROBAXIN] Allergy Intermediate NAUSEA & Unverified 06/04/20 18:47 VOMITING metoclopramide [From REGLAN] Allergy Intermediate PANIC Unverified 06/04/20 18:47 ATTACK sumatriptan [From IMITREX] Allergy Intermediate NAUSEA & Unverified 06/04/20 18:47 VOMITING hydrocodone [HYDROCODONE] Allergy Unknown UNKNOWN Unverified 06/04/20 18:47 tramadol [TRAMADOL] Allergy Unknown UNKNOWN Unverified 06/04/20 18:47
--- NOTE | 2020-06-23 14:39 | PC.NURSE ---
Pt filed a 3-Day Notice on Saturday 06/23 up on Tuesday 06/26
[2020-06-23] MEDS: Venlafaxine HCl ER 75 MG CAP.ER.24H PO (17:00)
[2020-06-23] MEDS: risperiDONE 0.5 MG TABLET PO (20:58)
[2020-06-23] MEDS: OXcarbazepine 300 MG TABLET PO (20:58)
[2020-06-24] VITALS (7 sets, daily range): BP systolic 107–138; BP diastolic 61–88; PULSE 92–113; RESP 16; TEMP 36.8–36.9
[2020-06-24] MEDS: LORazepam 1 MG TABLET PO ×5 (04:32→20:32)
[2020-06-24] MEDS: cloNIDine HCL 0.1 MG TABLET PO ×4 (06:40→20:32)
[2020-06-24] MEDS: OXcarbazepine 150 MG TABLET PO ×2 (08:23→13:04)
[2020-06-24] MEDS: Venlafaxine HCl ER 150 MG CAP.ER.24H PO (08:24)
--- NOTE | 2020-06-24 09:29 | HO.PSYCHPN ---
Assessment & Plan Assessment & Plan (1) Acute anxiety: Status: Acute Code(s): F41.9 - Anxiety disorder, unspecified Assessment and Plan: ct meds. Reduce from tomorrow (2) Medication addiction, episodic: Status: Acute Code(s): F19.20 - Other psychoactive substance dependence, uncomplicated Assessment and Plan: counselling (3) Suicidal ideation: Status: Acute Code(s): R45.851 - Suicidal ideations Assessment and Plan: Safety plan Greater than 50% of the session was spent on counseling and/or coordination of care Patient educated on: diagnosis Informed Consent: understands Reason for contiued inpatient stay Substantial Risk for: rapid decompensation Subjective Subjective Date of Service: 06/24/20 Reason For Visit: Pt presented multiple time to ER with increase anx Subjective Notes: 3 Day Interim History: Much improved except for panic at night. We discussed maintainence dose starting tomorrow. No SO. Dc Fri Medication Compliance: Yes Side effects from medications: No Attending Groups: Yes Mental Status Exam Mental Status Exam Patient Appearance: Well Grooomed Patient Orientation: Person, Place, Time and Situation Level of Consciousness: Awake Patient Behavior: Appropriate and Anxious Mood Description: Depressed and Anxious Affect Description: Fearful and Anxious Patient Cognition Impaired: No Ability to Follow Directions: Excellent Speech Pattern: Clear Memory Description: Intact Hallucinations: None Thought Content: positive for Intact Depressive Symptoms: Difficulty Sleeping, Crying Spells and Unhappiness Abnormal Motor Activity Signs and Symptoms: Agitation Judgement: Fair Diagnostics Vital Signs (24Hr): Vital Signs - 24 hr 06/23/20 15:23 06/23/20 15:25 06/23/20 16:13 Temperature 97.9 F Pulse Rate 87 87 95 Respiratory Rate Blood Pressure 112/57 L 112/57 L 111/66 06/23/20 20:57 06/24/20 05:55 06/24/20 06:40 Temperature 98.4 F Pulse Rate 95 94 94 Respiratory Rate 16 Blood Pressure 111/66 138/78 138/78 06/24/20 08:25 Temperature Pulse Rate 94 Respiratory Rate Blood Pressure 138/78 Body Mass Index 38.9 Medications Medications Current Medications Generic Name Dose Route Start Last Admin Trade Name Freq PRN Reason Stop Dose Admin Acetaminophen 650 mg 06/19/20 23:31 06/21/20 06:46 Acetaminophen 325 Mg Tablet PO 650 mg Q6H PRN Administration Headache/Pain Mild Scale (1-3) Acetaminophen/Butalbital/Caffeine 2 tab 06/20/20 03:33 06/22/20 10:46 Butalb/Acetamin/Caff 50/325/40 1 Tab Tablet PO 2 tab DAILY PRN Administration migraine Al Hydroxide/Mg Hydroxide 30 ml 06/19/20 23:31 06/20/20 21:07 Magnesium Hydrox/Alum Hydrox 30 Ml Oral.Susp PO 30 ml Q6H PRN Administration Heartburn/Nausea Clonidine HCl 0.1 mg 06/22/20 13:04 06/24/20 06:40 Clonidine Hcl 0.1 Mg Tablet PO 0.1 mg TID PRN Administration opiate withdrawal Protocol Clonidine HCl 0.1 mg 06/22/20 15:00 06/24/20 08:25 Clonidine Hcl 0.1 Mg Tablet PO 0.1 mg TID NICOLAS Administration Protocol Hydroxyzine HCl 50 mg 06/20/20 15:04 06/20/20 22:58 Hydroxyzine Hcl 25 Mg Tablet PO 50 mg BEDTIME MRX1 PRN Administration Anxiety Hydroxyzine HCl 25 mg 06/20/20 17:07 06/23/20 05:06 Hydroxyzine Hcl 25 Mg Tablet PO 25 mg Q6H PRN Administration anxiety/opiate withdrawl Lorazepam 1 mg 06/22/20 13:40 06/24/20 08:24 Lorazepam 1 Mg Tablet PO 1 mg QID NICOLAS Administration Lorazepam 1 mg 06/22/20 13:37 06/24/20 04:32 Lorazepam 1 Mg Tablet PO 1 mg BID PRN Administration Anxiety Magnesium Hydroxide 30 ml 06/19/20 23:31 Milk Of Magnesia 30 Ml Oral.Susp PO DAILY PRN Constipation Ondansetron HCl 4 mg 06/20/20 13:35 06/23/20 05:06 Ondansetron Odt 4 Mg Tab.Rapdis TRANSLINGU 4 mg Q6H PRN Administration Nausea Oxcarbazepine 150 mg 06/22/20 08:30 06/24/20 08:23 Oxcarbazepine 150 Mg Tablet PO 150 mg BID@0830,1330 NICOLAS Administration Oxcarbazepine 300 mg 06/21/20 21:00 06/23/20 20:58 Oxcarbazepine 300 Mg Tablet PO 300 mg BEDTIME NICOLAS Administration Risperidone 0.5 mg 06/20/20 21:00 06/23/20 20:58 Risperidone 0.5 Mg Tablet PO 0.5 mg BEDTIME NICOLAS Administration Trazodone HCl 50 mg 06/20/20 15:04 Trazodone Hcl 50 Mg Tablet PO BEDTIME MRX1 PRN Insomnia Venlafaxine HCl 150 mg 06/20/20 09:00 06/24/20 08:24 Venlafaxine Hcl Er 150 Mg Cap.Er.24h PO 150 mg DAILY NICOLAS Administration Venlafaxine HCl 75 mg 06/20/20 17:00 06/23/20 17:00 Venlafaxine Hcl Er 75 Mg Cap.Er.24h PO 75 mg DAILY@1700 NICOLAS Administration Allergies Allergies Allergy/AdvReac Type Severity Reaction Status Date / Time methocarbamol [From ROBAXIN] Allergy Intermediate NAUSEA & Unverified 06/04/20 18:47 VOMITING metoclopramide [From REGLAN] Allergy Intermediate PANIC Unverified 06/04/20 18:47 ATTACK sumatriptan [From IMITREX] Allergy Intermediate NAUSEA & Unverified 06/04/20 18:47 VOMITING hydrocodone [HYDROCODONE] Allergy Unknown UNKNOWN Unverified 06/04/20 18:47 tramadol [TRAMADOL] Allergy Unknown UNKNOWN Unverified 06/04/20 18:47
--- NOTE | 2020-06-24 13:30 | PC.NURSE ---
Completed pt's Admission and Admission Risk Assessment. Some sections not completed as they are assessed BID since admission.
[2020-06-24] MEDS: Venlafaxine HCl ER 75 MG CAP.ER.24H PO (16:55)
[2020-06-24] MEDS: risperiDONE 0.5 MG TABLET PO (20:32)
[2020-06-24] MEDS: OXcarbazepine 300 MG TABLET PO (20:32)
[2020-06-25 07:00] VITALS: BMI 33.0
[2020-06-25 07:01] VITALS: BP 105/58; PULSE 99; RESP 16; TEMP 36.3; O2SAT 16
--- NOTE | 2020-06-25 07:04 | HO.PSYCHPN ---
Subjective Subjective Reason For Visit: Pt presented multiple time to ER with increase anx Interim History: Much improved except for panic at night. We discussed maintainence dose starting tomorrow. No SI. Dc Fri Mental Status Exam Mental Status Exam Narrative: more appropriately dressed and groomed, today less shakey Patient Appearance: Well Grooomed Patient Orientation: Person, Place, Time and Situation Level of Consciousness: Awake Patient Behavior: Appropriate and Anxious Behavior Comments: decrease hyperventilation noted Mood Description: Depressed and Anxious Affect Description: Fearful and Anxious Patient Cognition Impaired: No Ability to Follow Directions: Excellent Speech Pattern: Clear Memory Description: Intact Diagnostics Vital Signs (24Hr): Vital Signs - 24 hr 06/24/20 08:25 06/24/20 10:00 06/24/20 14:33 Temperature Pulse Rate 94 96 92 Respiratory Rate Blood Pressure 138/78 130/88 107/61 Pulse Oximetry 06/24/20 20:32 06/24/20 20:34 06/25/20 07:01 Temperature 98.2 F 97.4 F Pulse Rate 113 H 99 Respiratory Rate 16 Blood Pressure 107/66 105/58 L Pulse Oximetry 16 L Body Mass Index 38.9 Medications Medications Current Medications Generic Name Dose Route Start Last Admin Trade Name Freq PRN Reason Stop Dose Admin Acetaminophen 650 mg 06/19/20 23:31 06/21/20 06:46 Acetaminophen 325 Mg Tablet PO 650 mg Q6H PRN Administration Headache/Pain Mild Scale (1-3) Acetaminophen/Butalbital/Caffeine 2 tab 06/20/20 03:33 06/22/20 10:46 Butalb/Acetamin/Caff 50/325/40 1 Tab Tablet PO 2 tab DAILY PRN Administration migraine Al Hydroxide/Mg Hydroxide 30 ml 06/19/20 23:31 06/20/20 21:07 Magnesium Hydrox/Alum Hydrox 30 Ml Oral.Susp PO 30 ml Q6H PRN Administration Heartburn/Nausea Clonidine HCl 0.1 mg 06/22/20 13:04 06/24/20 06:40 Clonidine Hcl 0.1 Mg Tablet PO 0.1 mg TID PRN Administration opiate withdrawal Protocol Clonidine HCl 0.1 mg 06/22/20 15:00 06/24/20 20:32 Clonidine Hcl 0.1 Mg Tablet PO 0.1 mg TID NICOLAS Administration Protocol Hydroxyzine HCl 50 mg 06/20/20 15:04 06/20/20 22:58 Hydroxyzine Hcl 25 Mg Tablet PO 50 mg BEDTIME MRX1 PRN Administration Anxiety Hydroxyzine HCl 25 mg 06/20/20 17:07 06/23/20 05:06 Hydroxyzine Hcl 25 Mg Tablet PO 25 mg Q6H PRN Administration anxiety/opiate withdrawl Lorazepam 1 mg 06/22/20 13:40 06/24/20 20:32 Lorazepam 1 Mg Tablet PO 1 mg QID NICOLAS Administration Lorazepam 1 mg 06/22/20 13:37 06/24/20 04:32 Lorazepam 1 Mg Tablet PO 1 mg BID PRN Administration Anxiety Magnesium Hydroxide 30 ml 06/19/20 23:31 Milk Of Magnesia 30 Ml Oral.Susp PO DAILY PRN Constipation Ondansetron HCl 4 mg 06/20/20 13:35 06/23/20 05:06 Ondansetron Odt 4 Mg Tab.Rapdis TRANSLINGU 4 mg Q6H PRN Administration Nausea Oxcarbazepine 300 mg 06/24/20 21:00 06/24/20 20:32 Oxcarbazepine 300 Mg Tablet PO 300 mg BID NICOLAS Administration Risperidone 0.5 mg 06/20/20 21:00 06/24/20 20:32 Risperidone 0.5 Mg Tablet PO 0.5 mg BEDTIME NICOLAS Administration Trazodone HCl 50 mg 06/20/20 15:04 Trazodone Hcl 50 Mg Tablet PO BEDTIME MRX1 PRN Insomnia Venlafaxine HCl 150 mg 06/20/20 09:00 06/24/20 08:24 Venlafaxine Hcl Er 150 Mg Cap.Er.24h PO 150 mg DAILY NICOLAS Administration Venlafaxine HCl 75 mg 06/20/20 17:00 06/24/20 16:55 Venlafaxine Hcl Er 75 Mg Cap.Er.24h PO 75 mg DAILY@1700 NICOLAS Administration Allergies Allergies Allergy/AdvReac Type Severity Reaction Status Date / Time methocarbamol [From ROBAXIN] Allergy Intermediate NAUSEA & Unverified 06/04/20 18:47 VOMITING metoclopramide [From REGLAN] Allergy Intermediate PANIC Unverified 06/04/20 18:47 ATTACK sumatriptan [From IMITREX] Allergy Intermediate NAUSEA & Unverified 06/04/20 18:47 VOMITING hydrocodone [HYDROCODONE] Allergy Unknown UNKNOWN Unverified 06/04/20 18:47 tramadol [TRAMADOL] Allergy Unknown UNKNOWN Unverified 06/04/20 18:47 Assessment & Plan Assessment & Plan (1) Acute anxiety: Status: Acute Code(s): F41.9 - Anxiety disorder, unspecified Assessment and Plan: ct meds. Reduce Lorazepam (2) Medication addiction, episodic: Status: Acute Code(s): F19.20 - Other psychoactive substance dependence, uncomplicated Assessment and Plan: counseling (3) Suicidal ideation: Status: Acute Code(s): R45.851 - Suicidal ideations Assessment and Plan: Safety plan Greater than 50% of the session was spent on counseling and/or coordination of care
[2020-06-25 08:41] VITALS: BP 105/58; PULSE 99
[2020-06-25] MEDS: Venlafaxine HCl ER 150 MG CAP.ER.24H PO (08:41)
[2020-06-25] MEDS: LORazepam 1 MG TABLET PO ×4 (08:41→22:10)
[2020-06-25] MEDS: OXcarbazepine 300 MG TABLET PO ×2 (08:41→22:10)
[2020-06-25] MEDS: cloNIDine HCL 0.1 MG TABLET PO ×3 (08:41→22:10)
[2020-06-25 14:10] VITALS: BP 122/65; PULSE 118
[2020-06-25] MEDS: Venlafaxine HCl ER 75 MG CAP.ER.24H PO (16:45)
[2020-06-25 22:00] VITALS: TEMP 36.8
[2020-06-25 22:10] VITALS: BP 101/56; PULSE 101
[2020-06-26 03:35] VITALS: BP 114/69; PULSE 115; RESP 18; TEMP 36.6; O2SAT 99
[2020-06-26] MEDS: LORazepam 1 MG TABLET PO ×2 (03:35→08:48)
[2020-06-26] MEDS: OXcarbazepine 300 MG TABLET PO (08:47)
[2020-06-26 08:48] VITALS: BP 114/69; PULSE 115
[2020-06-26] MEDS: cloNIDine HCL 0.1 MG TABLET PO (08:48)
[2020-06-26] MEDS: Venlafaxine HCl ER 150 MG CAP.ER.24H PO (08:48)
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
== END 2020-06-26 12:12 | disposition home or self-care (01) | DRG 885 ==
LOC: HO.ED 06-19 01:42 → HO.PM5 06-19 18:02
PROVIDERS: Admitting Provider Psychiatry & Neurology Psychiatry; Emergency Provider Nurse Practitioner Family; Visit Provider Psychiatry & Neurology Psychiatry
DX: F31.12 Bipolar disorder, current episode manic without psychotic features, moderate (principal); F19.20 Other psychoactive substance dependence, uncomplicated; F41.9 Anxiety disorder, unspecified; G43.909 Migraine, unspecified, not intractable, without status migrainosus; Z20.828 Contact with and (suspected) exposure to other viral communicable diseases; Z88.5 Allergy status to narcotic agent; Z79.899 Other long term (current) drug therapy
CPT/HCPCS: 36415; 80307; 81001; 81025; 84484; 87635; 93005; 93010; 99222; 99232; 99239; 99283; 99284

== ENCOUNTER 2020-07-03 10:26 | Emergency (ER) | payer OTHER, SELFPAY ==
[2020-07-03 10:37] VITALS: BP 132/73; BP 150/98; PULSE 123; PULSE 130; RESP 14; TEMP 36.8; O2SAT 94; O2SAT 99; BMI 34.3
--- NOTE | 2020-07-03 11:08 | ECG_ITS ---
Test Reason : PALPITATIONS Blood Pressure : / mmHG Vent. Rate : 120 BPM Atrial Rate : 120 BPM P-R Int : 136 ms QRS Dur : 088 ms QT Int : 340 ms P-R-T Axes : 062 -09 034 degrees QTc Int : 480 ms Poor data quality Sinus tachycardia RSR' or QR pattern in V1 suggests right ventricular conduction delay Abnormal ECG When compared with ECG of 18-JUN-2020 21:36, Heart rate has increased Referred By: Deb Bender Electronically Signed By:GABBY LOPEZ MD
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
[2020-07-03 11:40] VITALS: BP 144/86; PULSE 119; RESP 14; TEMP 36.8; O2SAT 96
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
--- NOTE | 2020-07-03 13:58 | MHC.CARE ---
51A not filed at this time. Pt has joint custody of her children with Pts father. Pts children are currently with their father.
[2020-07-03 14:11] VITALS: BP 131/74; PULSE 120; RESP 16; O2SAT 97
[2020-07-03 14:21] LABS: MANUAL DIFF FLAG NO
[2020-07-03 14:25] LABS: Basophils Absolute Auto 0.1 X10*3/uL (0.0-0.2); Basophils Percent Auto 0.6 % (0-2); Eosinophils Absolute Auto 0.1 X10*3/uL (0.0-0.4); Hematocrit 37.2 % (37-47); Imm Gran Abs Auto 0.01 X10*3/uL (0.00-0.03); Imm Gran Pct Auto 0.1 % (0.0-0.4); Lymphocytes Absolute Auto 1.7 X10*3/uL (1.2-4.9); Lymphocytes Percent Auto 17.3 % (20-40); Mean Corpuscular HGB Conc 32.3 g/dl (31.0-35.0); Mean Corpuscular Hemoglobin 27.4 pg (27.0-33.0); Mean Corpuscular Volume 84.9 fL (80-98); Mean Platelet Volume 9.6 fL (9.4-12.3); Monocytes Absolute Auto 1.2 X10*3/uL (0.1-1.2); Monocytes Percent Auto 11.9 % (2-11); Neutrophils Absolute Auto 6.9 X10*3/uL (2.0-8.3); Neutrophils Percent Auto 69.1 % (45-73); Platelet Count 273 X10*3/uL (160-400); Red Blood Count 4.38 X10*6/uL (4.20-5.50); Red Cell Distribution Width 13.6 % (11.0-16.0)
--- NOTE | 2020-07-03 14:26 | MHC.CARE ---
CARE Team met with Pt again who presented as visibly less anxious and reported her phone call with [employer] went well. Pt reported she will continue to have contact with them. CARE Team provided Pt with N contact information and Pt verbalized understanding of the services they provided. Plan for Pt to be discharge pending her lab results. Pt is agreement with plan. Pt and CARE Team made a plan that her friend will spend the remainder of the day with her to provide support and a family member will be with her tomorrow during the belongings picker.
[2020-07-03 14:53] LABS: Alanine Aminotransferase 42 U/L (0-31); Albumin Level 4.1 g/dL (3.5-5.0); Alkaline Phosphatase 65 U/L (39-117); Anion Gap 13 (12-20); Aspartate Amino Transferase 101 U/L (5-31); Bilirubin Direct < 0.2 mg/dL (0.0-0.5); Bilirubin Total 0.4 mg/dL (0.0-1.0); Blood Urea Nitrogen 12 mg/dL (9-16); Calcium 8.9 mg/dL (8.4-10.2); Carbon Dioxide 27 mmol/L (22-29); Chloride 105 mmol/L (96-108); Creatinine Clr Calc Pharmacy 105.1; Estimated Glomerular Filt Rate > 60; Glucose Random 112 mg/dL (60-115); Potassium 3.3 mmol/l (3.3-5.1); Sodium 142 mmol/L (135-145); Total Protein 6.7 g/dL (6.5-8.0)
[2020-07-03 15:23] VITALS: BP 150/90; PULSE 120; RESP 18; TEMP 36.7
== END 2020-07-03 16:34 | disposition home or self-care (01) ==
PROVIDERS: Nurse Practitioner Family; Emergency Provider Emergency Medicine; PCP Internal Medicine
DX: F41.1 Generalized anxiety disorder (principal); F43.0 Acute stress reaction; Z79.899 Other long term (current) drug therapy
CPT/HCPCS: 36415; 80048; 80076; 85025; 93005; 99284

== ENCOUNTER 2020-07-19 02:32 | Emergency (ER) | payer OTHER, SELFPAY ==
[2020-07-19 02:48] VITALS: BP 103/66; PULSE 100; RESP 22; TEMP 36.7; O2SAT 97; BMI 32.1
--- NOTE | 2020-07-19 03:17 | ED_ITS ---
HPI - Headache General Chief Complaint: Headache Stated Complaint: Vomiting/Headache Time Seen by Provider: 07/19/20 03:15 Source: patient Mode of arrival: ambulatory Limitations: no limitations History of Present Illness HPI Narrative: This is a 44-year-old female with history of menstrual migraines and states that she is experiencing 1 at present with her LMP reported at 07/16 and onset of migraine with usual symptoms nausea /vomiting / photo, sound, smell sensitivity and patient states normal progression of the symptoms. These have not been associated with any fevers, chills, abdominal pain, urinary pain/ burning / frequency. In addition, patient denies any hearing/visual / speech abnormalities and denies any unilateral weakness / numbness /tingling. Patient has a regimen that she has been prescribed for home, but states that she got behind in her medications and now she is unable to take the remaining treatment due to her nausea and vomiting. Related Data Home Medications Medication Instructions Recorded Confirmed fmbzpqzrdk-orgtmnbbscwnv-extk 2 tab PO DAILY 06/17/20 06/18/20 Previous Rx's Medication Instructions Recorded clonidine HCl 0.1 mg PO TID 30 Days #90 tab 06/26/20 desvenlafaxine succinate 100 mg PO DAILY 30 Days #30 tab 06/26/20 hydroxyzine HCl 25 mg PO Q6H PRN 30 Days #60 tab 06/26/20 lorazepam 1 mg PO TID 30 Days #0 tab 06/26/20 oxcarbazepine 300 mg PO BID 30 Days #60 tab 06/26/20 trazodone 50 mg PO BEDTIME MRX1 PRN 30 Days 06/26/20 #60 tab Allergies Allergy/AdvReac Type Severity Reaction Status Date / Time methocarbamol [From ROBAXIN] Allergy Intermediate NAUSEA & Verified 07/19/20 02:52 VOMITING metoclopramide [From REGLAN] Allergy Intermediate PANIC Verified 07/19/20 02:52 ATTACK sumatriptan [From IMITREX] Allergy Intermediate NAUSEA & Verified 07/19/20 02:52 VOMITING hydrocodone [HYDROCODONE] Allergy Unknown UNKNOWN Verified 07/19/20 02:52 tramadol [TRAMADOL] Allergy Unknown UNKNOWN Verified 07/19/20 02:52 Review of Systems Review of Systems: Pertinent positives and negatives as stated in HPI 10 point review systems is otherwise negative. PMFSH Past Medical History Source: nursing notes reviewed Medical History Anxiety Depression Migraines Panic attack Social History Social History Household Members: Children Housing: Apartment Alcohol intake: never Smoking Status: Never smoker Use of substances other than those prescribed or required for medical reasons: No Advance Directives: No Advance Directives Information Provided: Yes service: No Sexual orientation: Straight/Heterosexual Physical Exam Vital Signs: Vital Signs: Vital Signs Temp Pulse Resp BP Pulse Ox 07/19/20 04:00 75 16 99 07/19/20 02:48 98.0 F 100 22 H 103/66 97 Body Mass Index 32.1 VITAL SIGNS: Reviewed. GENERAL: Well developed, well nourished, in no acute distress. HEAD: Normocephalic/atraumatic, EYES: PERRLA, EOMI intact without pain, no nystagmus/pallor/icterus noted EARS: Ext canals without abnormality, TMs non-bulging and non-erythematous NOSE: Nares patent bilateral OROPHARYNX: no oral lesions noted, posterior pharynx clear and non-erythematous without noted tonsillar enlargement/erythema/exudates NECK: Supple, no adenopathy LUNGS: Normal breath sounds. No adventitious sounds or accessory muscle use. SpO2<97> CARDIOVASCULAR: Regular rate and rhythm without noted murmurs, no JVD or lower extremity edema. ABDOMEN: Soft, non-tender, non-distended with bowel sounds. No rigidity. No guarding. No palpable masses or hernias noted MUSCULOSKELETAL: No tenderness, deformities, or effusions noted on gross inspection. EXTREMITIES: No cyanosis, clubbing or edema. SKIN: Inspection of the skin reveals no rashes, ulcerations, jaundice, pallor, or petechiae. NEUROLOGIC: Alert and oriented x 4. Strength and sensation to light touch were grossly intact x 4. Course Course Course Narrative: This is a 44-year-old female with history and clinical presentation consistent with her menstrual migraine symptoms and progression with failure of home regimen due to inability to control her nausea and vomiting. Will hydrate the patient, obtain labs, and provide symptomatic t reatment. On re-evaluation patient has shown great improvement with the ability to tolerate water with some saltines and although she is describing some nausea she has not vomited and will be provided with a dose of Compazine in addition to the medications that she has already received and discharged home in stable condition with directions to resume her home regimen now that her nausea is controlled. On review of investigations the mild leukocytosis likely secondary to the nausea and vomiting that she has been experiencing. There is no evidence on laboratory workup of acute electrolyte or dehydration status. MDM - Headache Lab Data Result diagrams: 07/19/20 03:59 07/19/20 03:59 Labs: Lab Results 07/19/20 07/19/20 Range/Units 03:59 03:59 WBC 11.7 H (4.8-10.8) X10*3/uL RBC 4.87 (4.20-5.50) X10*6/uL Hgb 13.6 (12.0-16.0) g/dl Hct 41.7 (37-47) % MCV 85.6 (80-98) fL MCH 27.9 (27.0-33.0) pg MCHC 32.6 (31.0-35.0) g/dl RDW 14.6 (11.0-16.0) % Plt Count 455 H D (160-400) X10*3/uL MPV 9.6 (9.4-12.3) fL Immature Gran % (Auto) 0.3 (0.0-0.4) % Neut % (Auto) 63.1 (45-73) % Lymph % (Auto) 25.6 (20-40) % [place] % (Auto) 10.3 (2-11) % Eos % (Auto) 0.1 (0-4) % Baso % (Auto) 0.6 (0-2) % Lymph # (Auto) 3.0 (1.2-4.9) X10*3/uL [place] # (Auto) 1.2 (0.1-1.2) X10*3/uL Eos # (Auto) 0.0 (0.0-0.4) X10*3/uL Baso # (Auto) 0.1 (0.0-0.2) X10*3/uL Abs Immat Gran (auto) 0.03 (0.00-0.03) X10*3/uL Absolute Neuts (auto) 7.4 (2.0-8.3) X10*3/uL Absolute Nucleated RBC 0.000 (0.0-0.012) X10*3/uL Nucleated RBC % (auto) 0.0 (0.0-0.2) /100WBC Sodium 140 (135-145) mmol/L Potassium 4.0 D (3.3-5.1) mmol/l Chloride 103 (96-108) mmol/L Carbon Dioxide 23 (22-29) mmol/L Anion Gap 18 (12-20) BUN 9 (9-16) mg/dL Creatinine 1.11 (0.5-1.4) mg/dL Estim Creat Clear Calc 67.0 Estimated GFR 54 Random Glucose 114 (60-115) mg/dL Calcium 9.4 (8.4-10.2) mg/dL Total Bilirubin 0.4 (0.0-1.0) mg/dL AST 23 D (5-31) U/L ALT 15 (0-31) U/L Alkaline Phosphatase 75 (39-117) U/L Total Protein 7.9 (6.5-8.0) g/dL Albumin 4.4 (3.5-5.0) g/dL Discharge Plan Discharge Clinical Impression: Migraine Qualifiers: Migraine type: without aura Status migrainosus presence: with status migrainosus Intractability: not intractable Qualified Code(s): G43.001 - Migraine without aura, not intractable, with status migrainosus Patient Disposition: Home, Self-Care Instructions: Migraine Headache (ED) Additional Instructions: 1. Resume all home medications as prescribed. 2. Follow-up with your primary care provider on Monday. The patient and/or family acknowledge understanding of results (as applicable), diagnosis, treatment plan, need for follow up, and symptoms that should prompt a return to the emergency room. Prescriptions: No Action mvqhscllzj-nspzbfbqudlcy-vtqz 50-325-40 mg Tablet 2 tab PO DAILY RF: 0 clonidine HCl 0.1 mg Tablet 0.1 mg PO TID 30 Days Qty: 90 RF: 0 hydroxyzine HCl 25 mg Tablet 25 mg PO Q6H PRN (Reason: anxiety/opiate withdrawl) 30 Days Qty: 60 RF: 0 lorazepam 1 mg Tablet 1 mg PO TID 30 Days Qty: 0 RF: 0 trazodone 50 mg Tablet 50 mg PO BEDTIME MRX1 PRN (Reason: Insomnia) 30 Days Qty: 60 RF: 0 oxcarbazepine 300 mg Tablet 300 mg PO BID 30 Days Qty: 60 RF: 0 desvenlafaxine succinate 100 mg Tablet Extended Release 24 Hr 100 mg PO DAILY 30 Days Qty: 30 RF: 0 Referrals: Physician,Unknown [Primary Care Provider] - 2 days ( for further management of your migraines.)
[2020-07-19 04:00] VITALS: PULSE 75; RESP 16; O2SAT 99
[2020-07-19 04:12] LABS: Basophils Absolute Auto 0.1 X10*3/uL (0.0-0.2); Basophils Percent Auto 0.6 % (0-2); Eosinophils Percent Auto 0.1 % (0-4); Hematocrit 41.7 % (37-47); Hemoglobin 13.6 g/dl (12.0-16.0); Imm Gran Abs Auto 0.03 X10*3/uL (0.00-0.03); Imm Gran Pct Auto 0.3 % (0.0-0.4); Lymphocytes Percent Auto 25.6 % (20-40); Mean Corpuscular HGB Conc 32.6 g/dl (31.0-35.0); Mean Corpuscular Hemoglobin 27.9 pg (27.0-33.0); Mean Corpuscular Volume 85.6 fL (80-98); Mean Platelet Volume 9.6 fL (9.4-12.3); Monocytes Absolute Auto 1.2 X10*3/uL (0.1-1.2); Monocytes Percent Auto 10.3 % (2-11); Neutrophils Absolute Auto 7.4 X10*3/uL (2.0-8.3); Neutrophils Percent Auto 63.1 % (45-73); Platelet Count 455 X10*3/uL (160-400); Red Blood Count 4.87 X10*6/uL (4.20-5.50); Red Cell Distribution Width 14.6 % (11.0-16.0); White Blood Count 11.7 X10*3/uL (4.8-10.8)
[2020-07-19 04:14] LABS: MANUAL DIFF FLAG NO
[2020-07-19] MEDS: Ketorolac Tromethamine 15 MG/ML VIAL IVPUSH (04:21)
[2020-07-19] MEDS: Acetaminophen 325 MG TABLET 975 MG PO (04:21)
[2020-07-19] MEDS: ondansetron HCL 4 MG/2 ML VIAL IVPUSH (04:21)
[2020-07-19] MEDS: 0.9 % Sodium Chloride 1,000 ML 1000 ML IV ×2 (04:21)
[2020-07-19 04:43] LABS: Alanine Aminotransferase 15 U/L (0-31); Albumin Level 4.4 g/dL (3.5-5.0); Alkaline Phosphatase 75 U/L (39-117); Anion Gap 18 (12-20); Aspartate Amino Transferase 23 U/L (5-31); Bilirubin Total 0.4 mg/dL (0.0-1.0); Blood Urea Nitrogen 9 mg/dL (9-16); Calcium 9.4 mg/dL (8.4-10.2); Carbon Dioxide 23 mmol/L (22-29); Chloride 103 mmol/L (96-108); Estimated Glomerular Filt Rate 54; Glucose Random 114 mg/dL (60-115); Sodium 140 mmol/L (135-145); Total Protein 7.9 g/dL (6.5-8.0)
[2020-07-19] MEDS: diphenhydrAMINE HCL 50 MG/ML VIAL 25 MG IVPUSH (04:45)
--- NOTE | 2020-07-19 05:59 | PC.NURSE ---
PT STATES HER NAUSEA HAS RETURNED AND HER HEADACHE REMAINS
[2020-07-19] MEDS: Prochlorperazine Edisylate 10 MG/2 ML VIAL 5 MG IV (06:10)
== END 2020-07-19 06:41 | disposition home or self-care (01) ==
PROVIDERS: Emergency Provider Student in an Organized Health Care Education/Training Program
DX: G43.001 Migraine without aura, not intractable, with status migrainosus (principal); Z79.899 Other long term (current) drug therapy
CPT/HCPCS: 36415; 80053; 85025; 96361; 96374; 96375; 99284; J1200; J1885; J2405

== ENCOUNTER 2020-08-15 17:45 | Emergency (ER) | payer OTHER, SELFPAY ==
[2020-08-15 18:14] VITALS: BP 124/91; PULSE 108; RESP 18; TEMP 36.8; O2SAT 98; BMI 32.8
[2020-08-15] MEDS: 0.9 % Sodium Chloride 1,000 ML 999 ML IVCONT (20:02)
[2020-08-15] MEDS: Prochlorperazine Edisylate 10 MG/2 ML VIAL IVPUSH (20:03)
[2020-08-15] MEDS: LORazepam 2 MG/ML VIAL IVPUSH (20:03)
[2020-08-15] MEDS: diphenhydrAMINE HCL 50 MG/ML VIAL IVPUSH (20:03)
[2020-08-15] MEDS: Ketorolac Tromethamine 30 MG/ML VIAL IVPUSH (20:04)
[2020-08-15 20:32] VITALS: BP 125/76; PULSE 73; RESP 18; TEMP 36.7; O2SAT 96
--- NOTE | 2020-08-15 21:49 | ED.HA ---
HPI - Headache General Chief Complaint: Headache Stated Complaint: migraine,anxiety Time Seen by Provider: 08/15/20 19:17 Source: patient Mode of arrival: ambulatory Limitations: no limitations History of Present Illness HPI Narrative: Patient comes to emergency room complaining of a migraine headache and anxiety. Patient states she ran out of her Xanax and clonidine for the last 4 days, patient has had multiple panic attacks in the last couple of days, which triggered her migraine headache. Patient complaining of photophobia. MD elicited complaint: headache and migraine Related Data Home Medications Medication Instructions Recorded Confirmed qjhawlxppv-dafjbjdkkyhfb-wlki 2 tab PO DAILY 06/17/20 06/18/20 Previous Rx's Medication Instructions Recorded clonidine HCl 0.1 mg PO TID 30 Days #90 tab 06/26/20 desvenlafaxine succinate 100 mg PO DAILY 30 Days #30 tab 06/26/20 hydroxyzine HCl 25 mg PO Q6H PRN 30 Days #60 tab 06/26/20 lorazepam 1 mg PO TID 30 Days #0 tab 06/26/20 oxcarbazepine 300 mg PO BID 30 Days #60 tab 06/26/20 trazodone 50 mg PO BEDTIME MRX1 PRN 30 Days 06/26/20 #60 tab rsbmsasjvb-inrzwhlvvaeix-neru 1 cap PO Q8H PRN #14 cap 08/15/20 [Fioricet] lorazepam [Ativan] 0.5 mg PO TID PRN #10 tab 08/15/20 Allergies Allergy/AdvReac Type Severity Reaction Status Date / Time methocarbamol [From ROBAXIN] Allergy Intermediate NAUSEA & Verified 08/15/20 18:13 VOMITING metoclopramide [From REGLAN] Allergy Intermediate PANIC Verified 08/15/20 18:13 ATTACK sumatriptan [From IMITREX] Allergy Intermediate NAUSEA & Verified 08/15/20 18:13 VOMITING hydrocodone [HYDROCODONE] Allergy Unknown UNKNOWN Verified 08/15/20 18:13 tramadol [TRAMADOL] Allergy Unknown UNKNOWN Verified 08/15/20 18:13 Review of Systems Review of Systems: Constitutional : No Weight loss, No Fever, No Chills, No Night Sweats, No Fatigue, No Malaise ENT/Mouth : No Hearing loss, No Ear Pain, No Nasal Congestion, No Sinus Pain, No Hoarseness, No sore throat, No Rhinorrhea, No Swallowing Difficulty Eyes: No Eye Pain, No Swelling, No Redness, No Foreign Body, No Discharge, No Vision Changes Cardiovascular : No Chest Pain, No SOB, No Dyspnea on Exertion, No Orthopnea, No Edema, No Palpitations Respiratory : No Cough, No Sputum, No Wheezing, No Smoke Exposure, No Dyspnea Gastrointestinal : No Nausea, No Vomiting, No Diarrhea, No Constipation, No abdominal Pain, No Hematochezia, No Melena Genitourinary : no irregular bleeding, No Dysuria, No Urinary Frequency, No Hematuria, No Urinary Incontinence, No Urgency, No Flank Pain, No Urinary Flow Changes, No Hesitancy Musculoskeletal : No joint pain, No Myalgias, No Joint Swelling Skin : No Skin Lesions, No rash Neuro : No Weakness, No Numbness, No Paresthesias, No Loss of Consciousness, No Dizziness, patient complaining of a headache Psych : complaining of anxiety and panic attacks, No Depression, No SI/HI/AH/VH, No Social Issues, Heme/Lymph: No Bruising, No Bleeding,No Lymphadenopathy Endocrine : No Polyuria, No Polydipsia, No Temperature Intolerance [facility] Past Medical History Medical History Anxiety Depression Migraines Panic attack Social History Social History Household Members: Children Housing: Apartment Alcohol intake: never Smoking Status: Never smoker Use of substances other than those prescribed or required for medical reasons: No Advance Directives: No service: No Sexual orientation: Straight/Heterosexual Physical Exam Vital Signs: Vital Signs: Last Vital Signs Temp 98.0 F 08/15/20 20:32 Pulse 73 08/15/20 20:32 Resp 18 08/15/20 20:32 BP 125/76 08/15/20 20:32 Pulse Ox 96 08/15/20 20:32 Body Mass Index 32.8 Appearance: Alert. Oriented X3. seems uncomfortable Eyes: Pupils equal, round and reactive to light. ENT: Pharynx normal. Neck: Normal inspection. Neck supple. No lymph nodes noted. No crepitus CVS: Normal heart rate and rhythm. Pulses normal. Normal S1 and S2 Respiratory: No respiratory distress. Breath sounds normal. No Wheezing. No rales Abdomen: Soft and nontender. No rigidity. No distention. good BS x4 Skin: Skin warm and dry. Normal skin color. Normal skin turgor. Extremities: No lower extremity edema. No lower extremity edema. No Lacerations. No Rash Neuro: Oriented X 3. No motor deficit. No sensory deficit. Moving all extermities. No slurred speech. Course Course Course Narrative: patient feeling better after IV medications, I agree with the addition of the room will provide her with a script of Ativan until she is seen by her primary care physician / psychiatrist on Monday. Patient also ran out of Fioricet. Discharge Plan Discharge Clinical Impression: Panic attack Migraine Qualifiers: Migraine type: unspecified Intractability: not intractable Patient Disposition: Home, Self-Care Instructions: Migraine Headache (ED), Panic Attack (ED) Additional Instructions: please follow-up with your process like I addressed and with your neurologist on Monday. If you have any recurrent or worsening symptoms please return to emergency room. Prescriptions: New zxadgvxxlo-bajimqepzbsgq-txhi [Fioricet] 50-300-40 mg capsule 1 cap PO Q8H PRN (Reason: pain) Qty: 14 RF: 0 lorazepam [Ativan] 0.5 mg tablet 0.5 mg PO TID PRN (Reason: anxiety) Qty: 10 RF: 0 No Action uwdacuzria-goppzjwzshelh-maxe 50-325-40 mg Tablet 2 tab PO DAILY RF: 0 clonidine HCl 0.1 mg Tablet 0.1 mg PO TID 30 Days Qty: 90 RF: 0 hydroxyzine HCl 25 mg Tablet 25 mg PO Q6H PRN (Reason: anxiety/opiate withdrawl) 30 Days Qty: 60 RF: 0 lorazepam 1 mg Tablet 1 mg PO TID 30 Days Qty: 0 RF: 0 trazodone 50 mg Tablet 50 mg PO BEDTIME MRX1 PRN (Reason: Insomnia) 30 Days Qty: 60 RF: 0 oxcarbazepine 300 mg Tablet 300 mg PO BID 30 Days Qty: 60 RF: 0 desvenlafaxine succinate 100 mg Tablet Extended Release 24 Hr 100 mg PO DAILY 30 Days Qty: 30 RF: 0
== END 2020-08-15 22:58 | disposition home or self-care (01) ==
PROVIDERS: Emergency Provider Emergency Medicine
DX: G43.909 Migraine, unspecified, not intractable, without status migrainosus (principal); F41.0 Panic disorder [episodic paroxysmal anxiety]; F43.0 Acute stress reaction; Z79.899 Other long term (current) drug therapy
CPT/HCPCS: 96361; 96374; 96375; 99284; J1200; J1885; J2060

== ENCOUNTER 2020-08-19 20:29 | Emergency (ER) | payer OTHER, SELFPAY ==
[2020-08-19 21:07] VITALS: BP 141/93; PULSE 116; RESP 20; TEMP 36.9; O2SAT 97; BMI 32.0
--- NOTE | 2020-08-19 21:14 | XR_ITS ---
EXAMINATION: XR CHEST CLINICAL INFORMATION: Cough. COMPARISON: Chest x-ray 11/08/2019 TECHNIQUE: Frontal portable view of the chest was obtained. 9:15 PM FINDINGS: No significant abnormality is noted involving the heart, lungs, mediastinum, bony thorax or soft tissues. XR/XR chest 1V IMPRESSION: Unremarkable examination.
--- NOTE | 2020-08-19 21:14 | ECG_ITS ---
Test Reason : CHEST PAIN Blood Pressure : / mmHG Vent. Rate : 130 BPM Atrial Rate : 130 BPM P-R Int : 126 ms QRS Dur : 072 ms QT Int : 324 ms P-R-T Axes : 061 008 007 degrees QTc Int : 476 ms Sinus tachycardia Possible Left atrial enlargement Borderline ECG When compared with ECG of 03-JUL-2020 11:36, Previous ECG has undetermined rhythm, needs review Minimal criteria for Inferior infarct are no longer Present Referred By: Pat Flores Electronically Signed By:NAKUL WARD MD
--- NOTE | 2020-08-19 21:17 | ED.CHESTPAIN ---
HPI - Chest Pain General Chief Complaint: Chest Pain Stated Complaint: ANXIETY,CHEST PAIN Time Seen by Provider: 08/19/20 21:14 Source: patient History of Present Illness HPI narrative: this is a 44-year-old female who is known to this emergency department and this is her 5th visit since the 18 of June for very similar symptoms regarding chest pain, anxiety, migraines. Today she is presenting with self-reported anxiety as well as upper left-sided anterior chest pain that is described as sharp constant since this morning does not radiate and is not associated with any sweating, nausea, dizziness. She denies any recent travel and states that her Xanax has ran out and she has been unable to get a hold of her primary care physician. Related Data Home Medications Medication Instructions Recorded Confirmed yaouwokhcu-xlrmmtdulraol-ckcs 2 tab PO DAILY 06/17/20 06/18/20 Previous Rx's Medication Instructions Recorded clonidine HCl 0.1 mg PO TID 30 Days #90 tab 06/26/20 desvenlafaxine succinate 100 mg PO DAILY 30 Days #30 tab 06/26/20 hydroxyzine HCl 25 mg PO Q6H PRN 30 Days #60 tab 06/26/20 lorazepam 1 mg PO TID 30 Days #0 tab 06/26/20 oxcarbazepine 300 mg PO BID 30 Days #60 tab 06/26/20 trazodone 50 mg PO BEDTIME MRX1 PRN 30 Days 06/26/20 #60 tab ewjwoevyuy-jxczvaqrlssty-tcyw 1 cap PO Q8H PRN #14 cap 08/15/20 [Fioricet] lorazepam [Ativan] 0.5 mg PO TID PRN #10 tab 08/15/20 hydroxyzine HCl 50 mg PO BID PRN #10 tab 08/19/20 Allergies Allergy/AdvReac Type Severity Reaction Status Date / Time methocarbamol [From ROBAXIN] Allergy Intermediate NAUSEA & Verified 08/15/20 18:13 VOMITING metoclopramide [From REGLAN] Allergy Intermediate PANIC Verified 08/15/20 18:13 ATTACK sumatriptan [From IMITREX] Allergy Intermediate NAUSEA & Verified 08/15/20 18:13 VOMITING hydrocodone [HYDROCODONE] Allergy Unknown UNKNOWN Verified 08/15/20 18:13 tramadol [TRAMADOL] Allergy Unknown UNKNOWN Verified 08/15/20 18:13 Review of Systems Review of Systems: Pertinent positives and negatives as stated in HPI 10 point review of systems is otherwise negative. [facility] Past Medical History Source: nursing notes reviewed Medical History Anxiety Depression Migraines Panic attack Social History Social History Household Members: Children Housing: Apartment Alcohol intake: never Smoking Status: Never smoker Advance Directives: No Advance Directives Information Provided: Yes service: No Sexual orientation: Straight/Heterosexual Physical Exam Vital Signs: Vital Signs: Last Vital Signs Temp 98.5 F 08/19/20 21:07 Pulse 131 H 08/19/20 22:00 Resp 20 08/19/20 22:00 BP 141/93 H 08/19/20 21:07 Pulse Ox 96 08/19/20 22:00 Body Mass Index 32.0 VITAL SIGNS: Reviewed. GENERAL: Well developed, well nourished, in no acute distress. HEAD: Normocephalic/atraumatic, EYES: PERRLA, EOMI intact without pain, no nystagmus/pallor/icterus noted EARS: Ext canals without abnormality, TMs non-bulging and non-erythematous NOSE: Nares patent bilateral OROPHARYNX: no oral lesions noted, posterior pharynx clear and non-erythematous without noted tonsillar enlargement/erythema/exudates NECK: Supple, no adenopathy LUNGS: Forced tachypnea, Normal breath sounds. No adventitious sounds or accessory muscle use. SpO2<97> CARDIOVASCULAR: Regular rate and rhythm without noted murmurs, no JVD or lower extremity edema, tachycardia. ABDOMEN: Soft, non-tender, non-distended with bowel sounds. No rigidity. No guarding. No palpable masses or hernias noted MUSCULOSKELETAL: No tenderness, deformities, or effusions noted on gross inspection. EXTREMITIES: No cyanosis, clubbing or edema. SKIN: Inspection of the skin reveals no rashes, ulcerations, jaundice, pallor, or petechiae. NEUROLOGIC: Alert and oriented x 4. Strength and sensation to light touch were grossly intact x 4. Course Course Course Narrative: This is a 44-year-old female with history and clinical presentation consistent with underlying anxiety and panic attack disorders but will rule out thyroid, PE, cardiac, pulmonary etiologies. In addition, patient was provided with Ativan but is specifically requesting Toradol and Benadryl which she will receive as well. On review of all investigations there is no evidence of infection, anemia, PE, pneumonia, cardiac ischemia. 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 All results and findings were discussed with the patient at bedside it was communicated with her that there was concern regarding her misuse of her medications in terms of overall health and long-term implications. Patient will be offered Tylenol and hydroxyzine, but will otherwise be discharged with a hydroxyzine prescription and instructions to follow-up with her primary care provider. MDM - Chest Pain Lab Data Result diagrams: 08/19/20 21:40 08/19/20 21:40 Labs: Lab Results 08/19/20 08/19/20 08/19/20 Range/Units 21:40 21:40 21:40 WBC 9.8 (4.8-10.8) X10*3/uL RBC 4.43 (4.20-5.50) X10*6/uL Hgb 12.4 (12.0-16.0) g/dl Hct 37.8 (37-47) % MCV 85.3 (80-98) fL MCH 28.0 (27.0-33.0) pg MCHC 32.8 (31.0-35.0) g/dl RDW 13.8 (11.0-16.0) % Plt Count 328 D (160-400) X10*3/uL MPV 10.2 (9.4-12.3) fL Immature Gran % (Auto) 0.2 (0.0-0.4) % Neut % (Auto) 68.4 (45-73) % Lymph % (Auto) 21.2 (20-40) % [place] % (Auto) 9.1 (2-11) % Eos % (Auto) 0.6 (0-4) % Baso % (Auto) 0.5 (0-2) % Lymph # (Auto) 2.1 (1.2-4.9) X10*3/uL [place] # (Auto) 0.9 (0.1-1.2) X10*3/uL Eos # (Auto) 0.1 (0.0-0.4) X10*3/uL Baso # (Auto) 0.1 (0.0-0.2) X10*3/uL Abs Immat Gran (auto) 0.02 (0.00-0.03) X10*3/uL Absolute Neuts (auto) 6.7 (2.0-8.3) X10*3/uL Absolute Nucleated RBC 0.000 (0.0-0.012) X10*3/uL Nucleated RBC % (auto) 0.0 (0.0-0.2) /100WBC D-Dimer NG/ML Sodium 138 (135-145) mmol/L Potassium 3.7 (3.3-5.1) mmol/l Chloride 105 (96-108) mmol/L Carbon Dioxide 23 (22-29) mmol/L Anion Gap 14 (12-20) BUN 9 (9-16) mg/dL Creatinine 0.72 (0.5-1.4) mg/dL Estim Creat Clear Calc 103.2 Estimated GFR > 60 Random Glucose 102 (60-115) mg/dL Calcium 9.1 (8.4-10.2) mg/dL Total Bilirubin 0.6 (0.0-1.0) mg/dL AST 13 D (5-31) U/L ALT 10 (0-31) U/L Alkaline Phosphatase 65 (39-117) U/L Troponin I High Sens < 3.5 (<3.5-17.0) ng/L Total Protein 7.1 (6.5-8.0) g/dL Albumin 4.3 (3.5-5.0) g/dL Lipase 9 (8-78) U/L TSH 0.51 (0.32-4.0) mIU/mL Ethyl Alcohol mg/dL 08/19/20 08/19/20 Range/Units 21:40 21:49 WBC (4.8-10.8) X10*3/uL RBC (4.20-5.50) X10*6/uL Hgb (12.0-16.0) g/dl Hct (37-47) % MCV (80-98) fL MCH (27.0-33.0) pg MCHC (31.0-35.0) g/dl RDW (11.0-16.0) % Plt Count (160-400) X10*3/uL MPV (9.4-12.3) fL Immature Gran % (Auto) (0.0-0.4) % Neut % (Auto) (45-73) % Lymph % (Auto) (20-40) % [place] % (Auto) (2-11) % Eos % (Auto) (0-4) % Baso % (Auto) (0-2) % Lymph # (Auto) (1.2-4.9) X10*3/uL [place] # (Auto) (0.1-1.2) X10*3/uL Eos # (Auto) (0.0-0.4) X10*3/uL Baso # (Auto) (0.0-0.2) X10*3/uL Abs Immat Gran (auto) (0.00-0.03) X10*3/uL Absolute Neuts (auto) (2.0-8.3) X10*3/uL Absolute Nucleated RBC (0.0-0.012) X10*3/uL Nucleated RBC % (auto) (0.0-0.2) /100WBC D-Dimer 233 NG/ML Sodium (135-145) mmol/L Potassium (3.3-5.1) mmol/l Chloride (96-108) mmol/L Carbon Dioxide (22-29) mmol/L Anion Gap (12-20) BUN (9-16) mg/dL Creatinine (0.5-1.4) mg/dL Estim Creat Clear Calc Estimated GFR Random Glucose (60-115) mg/dL Calcium (8.4-10.2) mg/dL Total Bilirubin (0.0-1.0) mg/dL AST (5-31) U/L ALT (0-31) U/L Alkaline Phosphatase (39-117) U/L Troponin I High Sens (<3.5-17.0) ng/L Total Protein (6.5-8.0) g/dL Albumin (3.5-5.0) g/dL Lipase (8-78) U/L TSH (0.32-4.0) mIU/mL Ethyl Alcohol < 10 mg/dL ECG Data ECG #1: Attestation: I personally reviewed and interpreted this ECG as follows: Prior ECG tracings: available for review ( 07/03/2020 without acute changes on comparison) Interpretation: sinus tachycardia, HR -130, no evidence of acute ischemia, ME/QRS are within normal limits, QTC is noted to be 476 Discharge Plan Discharge Clinical Impression: Drug-seeking behavior, Anxiety, Medication addiction, continuous Patient Disposition: Home, Self-Care Instructions: Anxiety (ED), Panic Attack (ED) Additional Instructions: The patient and/or family acknowledge understanding of results (as applicable), diagnosis, treatment plan, need for follow up, and symptoms that should prompt a return to the emergency room. Prescriptions: New hydroxyzine HCl 50 mg tablet 50 mg PO BID PRN (Reason: anxiety) Qty: 10 RF: 0 No Action ngnyticwiz-mefvgyeghapbq-odij [Fioricet] 50-300-40 mg capsule 1 cap PO Q8H PRN (Reason: pain) Qty: 14 RF: 0 lorazepam [Ativan] 0.5 mg tablet 0.5 mg PO TID PRN (Reason: anxiety) Qty: 10 RF: 0 iwazpdwwww-zsenvgpmjpgaj-nqpr 50-325-40 mg Tablet 2 tab PO DAILY RF: 0 clonidine HCl 0.1 mg Tablet 0.1 mg PO TID 30 Days Qty: 90 RF: 0 hydroxyzine HCl 25 mg Tablet 25 mg PO Q6H PRN (Reason: anxiety/opiate withdrawl) 30 Days Qty: 60 RF: 0 lorazepam 1 mg Tablet 1 mg PO TID 30 Days Qty: 0 RF: 0 trazodone 50 mg Tablet 50 mg PO BEDTIME MRX1 PRN (Reason: Insomnia) 30 Days Qty: 60 RF: 0 oxcarbazepine 300 mg Tablet 300 mg PO BID 30 Days Qty: 60 RF: 0 desvenlafaxine succinate 100 mg Tablet Extended Release 24 Hr 100 mg PO DAILY 30 Days Qty: 30 RF: 0 Referrals: Erik Lowery MD [Primary Care Provider] - 2 days (Patient needs re-evaluation and management for prescription drug addiction, specifically benzodiazepines.) Maryanne Hou MD [Physician] - 2 days ( Requesting re-evaluation and management patient's prescription drug abuse.)
[2020-08-19 21:47] LABS: Basophils Absolute Auto 0.1 X10*3/uL (0.0-0.2); Basophils Percent Auto 0.5 % (0-2); Eosinophils Absolute Auto 0.1 X10*3/uL (0.0-0.4); Eosinophils Percent Auto 0.6 % (0-4); Hematocrit 37.8 % (37-47); Hemoglobin 12.4 g/dl (12.0-16.0); Imm Gran Abs Auto 0.02 X10*3/uL (0.00-0.03); Imm Gran Pct Auto 0.2 % (0.0-0.4); Lymphocytes Absolute Auto 2.1 X10*3/uL (1.2-4.9); Lymphocytes Percent Auto 21.2 % (20-40); Mean Corpuscular HGB Conc 32.8 g/dl (31.0-35.0); Mean Corpuscular Volume 85.3 fL (80-98); Mean Platelet Volume 10.2 fL (9.4-12.3); Monocytes Absolute Auto 0.9 X10*3/uL (0.1-1.2); Monocytes Percent Auto 9.1 % (2-11); Neutrophils Absolute Auto 6.7 X10*3/uL (2.0-8.3); Neutrophils Percent Auto 68.4 % (45-73); Platelet Count 328 X10*3/uL (160-400); Red Blood Count 4.43 X10*6/uL (4.20-5.50); Red Cell Distribution Width 13.8 % (11.0-16.0); White Blood Count 9.8 X10*3/uL (4.8-10.8)
[2020-08-19 21:48] LABS: MANUAL DIFF FLAG NO
--- NOTE | 2020-08-19 21:48 | PC.NURSE ---
TAG MACHINE OPERATOR APPLIED, SINUS TACH ON MONITOR. IV ACCESS OBTAINED, BLOOD SPECIMEN SENT TO LAB. AT [facility] FOR PRIMARY EVAL.
[2020-08-19 21:59] LABS: D Dimer 233 NG/ML
[2020-08-19 22:00] VITALS: PULSE 131; RESP 20; O2SAT 96
[2020-08-19] MEDS: LORazepam 2 MG/ML VIAL 1 MG IVPUSH (22:00)
[2020-08-19 22:12] LABS: Alanine Aminotransferase 10 U/L (0-31); Albumin Level 4.3 g/dL (3.5-5.0); Alkaline Phosphatase 65 U/L (39-117); Anion Gap 14 (12-20); Aspartate Amino Transferase 13 U/L (5-31); Bilirubin Total 0.6 mg/dL (0.0-1.0); Blood Urea Nitrogen 9 mg/dL (9-16); Calcium 9.1 mg/dL (8.4-10.2); Carbon Dioxide 23 mmol/L (22-29); Chloride 105 mmol/L (96-108); Creatinine Clr Calc Pharmacy 103.2; Estimated Glomerular Filt Rate > 60; Glucose Random 102 mg/dL (60-115); Lipase 9 U/L (8-78); Potassium 3.7 mmol/l (3.3-5.1); Sodium 138 mmol/L (135-145); Total Protein 7.1 g/dL (6.5-8.0)
[2020-08-19 22:14] LABS: Troponin-I High Sensitivity < 3.5 ng/L (<3.5-17.0)
[2020-08-19 22:19] LABS: Ethanol < 10 mg/dL
[2020-08-19] MEDS: diphenhydrAMINE HCL 50 MG/ML VIAL 25 MG IVPUSH (22:26)
[2020-08-19] MEDS: Ketorolac Tromethamine 15 MG/ML VIAL IVPUSH (22:26)
[2020-08-19 22:33] LABS: TSH reflex Free T4 0.51 mIU/mL (0.32-4.0)
--- NOTE | 2020-08-19 23:27 | PC.NURSE ---
AT BEDSIDE FOR REEVAL. NEGATIVE WORKUP. PT CONTINUES TO REPORT MIGRAINE HEADACHE AND CHEST TIGHTNESS.
[2020-08-19] MEDS: Acetaminophen 325 MG TABLET 975 MG PO (23:43)
--- NOTE | 2020-08-19 23:56 | PC.NURSE ---
PT REQUESTING MORE MEDS FOR ANXIETY. ALREADY SPOKE WITH PT REGARDING THIS. PT BECAME IRRATE WITH RN WHEN SHE TOLD PT WE CANNOT GIVE ANY MORE SEDATING MEDICATIONS AND LET HER DRIVE HOME. PT STATES SHE HAS SOMEONE TO PICK HER UP, MD NOTIFIED, ADDITIONAL DOSE OF ATIVAN TO BE ORDERED. PT RIDE TO COME INTO ED FOR PT DISCHARGE.
[2020-08-20] MEDS: LORazepam 2 MG/ML VIAL 1 MG IVPUSH (00:26)
== END 2020-08-20 01:18 | disposition home or self-care (01) ==
PROVIDERS: Emergency Provider Student in an Organized Health Care Education/Training Program; PCP Internal Medicine
DX: F41.1 Generalized anxiety disorder (principal); R07.9 Chest pain, unspecified; Z79.899 Other long term (current) drug therapy
CPT/HCPCS: 36415; 71045; 80053; 80320; 83690; 84443; 84484; 85025; 85379; 93005; 96374; 96375; 96376; 99284; J1200; J1885; J2060

== ENCOUNTER 2020-09-09 10:04 | Emergency (ER) | payer OTHER, SELFPAY ==
[2020-09-09 10:16] VITALS: BP 147/92; BP 162/97; PULSE 103; PULSE 108; RESP 28; TEMP 37.1; O2SAT 97; O2SAT 98; BMI 35.6
--- NOTE | 2020-09-09 10:22 | ECG_ITS ---
Test Reason : CHESTPAIN Blood Pressure : / mmHG Vent. Rate : 098 BPM Atrial Rate : 098 BPM P-R Int : 122 ms QRS Dur : 076 ms QT Int : 376 ms P-R-T Axes : 058 025 039 degrees QTc Int : 480 ms Normal sinus rhythm Prolonged QT Abnormal ECG When compared with ECG of 19-AUG-2020 21:02, ST no longer depressed in Inferior leads Referred By: Kait Gomes Electronically Signed By:NAKUL WARD MD
--- NOTE | 2020-09-09 10:22 | XR_ITS ---
EXAMINATION: XR CHEST CLINICAL INFORMATION: Chest pain. COMPARISON: Chest 08/19/2020 TECHNIQUE: Frontal view of the chest was obtained. FINDINGS: The lungs are well-expanded and clear of acute process. The heart size and pulmonary vascularity is normal. No gross bony abnormality seen. XR/XR chest 1V IMPRESSION: Unremarkable chest exam.
--- NOTE | 2020-09-09 10:23 | PC.NURSE ---
unable to obtain ekg at this time, pt very anxious, crying, thrashing and shaking her legs.
[2020-09-09] MEDS: 0.9 % Sodium Chloride 1,000 ML 999 ML IVCONT (10:29)
[2020-09-09] MEDS: LORazepam 2 MG/ML VIAL IVPUSH (10:29)
[2020-09-09] MEDS: diphenhydrAMINE HCL 50 MG/ML VIAL 25 MG IVPUSH ×2 (10:29→10:54)
--- NOTE | 2020-09-09 10:43 | ED_ITS ---
HPI - Chest Pain General Chief Complaint: Chest Pain Stated Complaint: cp Time Seen by Provider: 09/09/20 10:15 Source: patient and EMS Mode of arrival: EMS Limitations: no limitations History of Present Illness HPI narrative: 45 y/o female with history of migraines, bipolar disorder, SI, anxiety presents via EMS with central chest pain since 3am and migraine headache for the last 2 days. She is very tearful and anxious on arrival. She reports the pain in her chest is central, worse with deep breaths and palpation. She reports nausea associated with her headache with one episode of vomiting yesterday. She denies radiation of the chest pain, blurred vision, weakness, fever, chills, abd pain. She states her hands are tingling on arrival. MD complaint: chest pain Onset (ago): hour(s) (7) Timing of current episode: constant Prior episodes: No Onset: during rest Pain location: substernal Pain radiation: none Severity: moderate Quality: tightness and sharp Relieving factors: nothing Exacerbating factors: inspiration, palpation and stress Associated symptoms: nausea and vomiting Treatment prior to arrival: aspirin Risk Factors Coronary artery disease risk factors: none Thoracic aortic dissection risk factors: none Related Data Home Medications Medication Instructions Recorded Confirmed gcfnhzoesn-xxolcjzcpkrig-xyjb 2 tab PO DAILY 06/17/20 06/18/20 Previous Rx's Medication Instructions Recorded clonidine HCl 0.1 mg PO TID 30 Days #90 tab 06/26/20 desvenlafaxine succinate 100 mg PO DAILY 30 Days #30 tab 06/26/20 hydroxyzine HCl 25 mg PO Q6H PRN 30 Days #60 tab 06/26/20 lorazepam 1 mg PO TID 30 Days #0 tab 06/26/20 oxcarbazepine 300 mg PO BID 30 Days #60 tab 06/26/20 trazodone 50 mg PO BEDTIME MRX1 PRN 30 Days 06/26/20 #60 tab iuwioardxs-igxkqauemltsb-rajt 1 cap PO Q8H PRN #14 cap 08/15/20 [Fioricet] lorazepam [Ativan] 0.5 mg PO TID PRN #10 tab 08/15/20 hydroxyzine HCl 50 mg PO BID PRN #10 tab 08/19/20 Allergies Allergy/AdvReac Type Severity Reaction Status Date / Time methocarbamol [From ROBAXIN] Allergy Intermediate NAUSEA & Verified 08/15/20 18:13 VOMITING metoclopramide [From REGLAN] Allergy Intermediate PANIC Verified 08/15/20 18:13 ATTACK sumatriptan [From IMITREX] Allergy Intermediate NAUSEA & Verified 08/15/20 18:13 VOMITING hydrocodone [HYDROCODONE] Allergy Unknown UNKNOWN Verified 08/15/20 18:13 tramadol [TRAMADOL] Allergy Unknown UNKNOWN Verified 08/15/20 18:13 Review of Systems Review of Systems: Constitutional: No Fever, No Chills ENT/Mouth: No sore throat, No Rhinorrhea, No Swallowing Difficulty Eyes: No Eye Pain, No Swelling, No Redness Cardiovascular: +Chest Pain, No SOB, No Orthopnea, No Edema Respiratory: No Cough, No Sputum, No Wheezing, No dyspnea Gastrointestinal: + Nausea, + Vomiting, No Diarrhea, No abdominal Pain Genitourinary: No Dysuria, No Urinary Frequency, No Hematuria Musculoskeletal: No joint pain, No Myalgias Skin: No Skin Lesions, No rash Neuro: No Weakness, + Numbness, No Dizziness, + Headache Psych: + Anxiety/Panic, No Depression Heme/Lymph: No Bruising, No Lymphadenopathy Endocrine: No Polyuria, No Polydipsia PMFSH Past Medical History Medical History Anxiety Depression Migraines Panic attack Social History Social History Household Members: Children Housing: Apartment Alcohol intake: never Smoking Status: Never smoker Advance Directives: No Advance Directives Information Provided: Yes service: No Sexual orientation: Straight/Heterosexual Physical Exam Vital Signs: Vital Signs: Last Vital Signs Temp 98.7 F 09/09/20 13:46 Pulse 98 09/09/20 13:46 Resp 28 H 09/09/20 13:46 BP 116/76 09/09/20 13:46 Pulse Ox 97 09/09/20 13:46 Body Mass Index 35.6 Appearance: Alert. Oriented X3. Anxious, crying Eyes: Pupils equal, round and reactive to light. ENT: Pharynx normal. Neck: Normal inspection. Neck supple. CVS: tachycardiac, regular rhythm. Pulses normal. Respiratory: Hyperventilating with anxiety, Breath sounds normal. Abdomen: Soft and nontender. +BS x4 Skin: Skin warm and dry. Normal skin color. Normal skin turgor. No rashes. Extremities: No lower extremity edema. Negative Brianna's sign Neuro: Oriented X 3. No motor deficit. No sensory deficit. Tearful, follows commands, answers questions appropriately Course Course Course Narrative: 45 y/o female presenting with headache x2 days and central non-radiating chest pain x7 hours. Suspect large component of anxiety, will r/o ACS with troponin and EKG. No risk factors. No family history. Will give dose of Atian and Benaryl for headache, anxiety. Lab workup pending. Reevaluation(s) Reevaluation #1: Lab workup is unremarkable including negative troponin. She required multiple rounds of medications for anxiety, hyperventilation. After benadryl, ativan and haldol she is finally calm and able to sleep. Will discuss anxiety manamgement when she wakes up. She admits to increased panic attacks lately and is afraid of losing her job. Minimal resources. Reevaluation #2: Patient calm and cooperative. Admits to significant anxiety and stress at home. Has psychiatrist and therapist. She agrees to call psychiatrist SHOAIB. Marlee for d/c. MDM - Chest Pain Medical Records Data Attestation: I reviewed the patient's medical records. Lab Data Attestation: I reviewed the patient's lab results. Result diagrams: 09/09/20 11:21 09/09/20 11:21 Labs: Lab Results 09/09/20 09/09/20 09/09/20 Range/Units 11:21 11:21 11:21 WBC 8.8 (4.8-10.8) X10*3/uL RBC 3.87 L (4.20-5.50) X10*6/uL Hgb 11.1 L (12.0-16.0) g/dl Hct 34.0 L (37-47) % MCV 87.9 (80-98) fL MCH 28.7 (27.0-33.0) pg MCHC 32.6 (31.0-35.0) g/dl RDW 14.1 (11.0-16.0) % Plt Count 270 (160-400) X10*3/uL MPV 9.8 (9.4-12.3) fL Immature Gran % (Auto) 0.3 (0.0-0.4) % Neut % (Auto) 74.4 H (45-73) % Lymph % (Auto) 16.2 L (20-40) % [place] % (Auto) 8.2 (2-11) % Eos % (Auto) 0.3 (0-4) % Baso % (Auto) 0.6 (0-2) % Lymph # (Auto) 1.4 (1.2-4.9) X10*3/uL [place] # (Auto) 0.7 (0.1-1.2) X10*3/uL Eos # (Auto) 0.0 (0.0-0.4) X10*3/uL Baso # (Auto) 0.1 (0.0-0.2) X10*3/uL Abs Immat Gran (auto) 0.03 (0.00-0.03) X10*3/uL Absolute Neuts (auto) 6.5 (2.0-8.3) X10*3/uL Absolute Nucleated RBC 0.000 (0.0-0.012) X10*3/uL Nucleated RBC % (auto) 0.0 (0.0-0.2) /100WBC PT 12.6 (10.8-13.0) SEC INR 1.1 (0.9-1.1) APTT 33.7 (24.1-38.0) SEC Sodium 141 (135-145) mmol/L Potassium 3.5 (3.3-5.1) mmol/l Chloride 109 H (96-108) mmol/L Carbon Dioxide 25 (22-29) mmol/L Anion Gap 11 L (12-20) BUN 8 L (9-16) mg/dL Creatinine 0.71 (0.5-1.4) mg/dL Estim Creat Clear Calc 109.6 Estimated GFR > 60 Random Glucose 117 H (60-115) mg/dL Calcium 8.5 D (8.4-10.2) mg/dL Magnesium 2.0 (1.6-2.6) mg/dL Total Bilirubin 0.5 (0.0-1.0) mg/dL Direct Bilirubin 0.2 (0.0-0.5) mg/dL AST 18 (5-31) U/L ALT 21 (0-31) U/L Alkaline Phosphatase 69 (39-117) U/L Troponin I High Sens (<3.5-17.0) ng/L B-Natriuretic Peptide (<100) pg/mL Total Protein 6.4 L (6.5-8.0) g/dL Albumin 3.7 (3.5-5.0) g/dL 09/09/ Range/Units 11:21 WBC (4.8-10.8) X10*3/uL RBC (4.20-5.50) X10*6/uL Hgb (12.0-16.0) g/dl Hct (37-47) % MCV (80-98) fL MCH (27.0-33.0) pg MCHC (31.0-35.0) g/dl RDW (11.0-16.0) % Plt Count (160-400) X10*3/uL MPV (9.4-12.3) fL Immature Gran % (Auto) (0.0-0.4) % Neut % (Auto) (45-73) % Lymph % (Auto) (20-40) % [place] % (Auto) (2-11) % Eos % (Auto) (0-4) % Baso % (Auto) (0-2) % Lymph # (Auto) (1.2-4.9) X10*3/uL [place] # (Auto) (0.1-1.2) X10*3/uL Eos # (Auto) (0.0-0.4) X10*3/uL Baso # (Auto) (0.0-0.2) X10*3/uL Abs Immat Gran (auto) (0.00-0.03) X10*3/uL Absolute Neuts (auto) (2.0-8.3) X10*3/uL Absolute Nucleated RBC (0.0-0.012) X10*3/uL Nucleated RBC % (auto) (0.0-0.2) /100WBC PT (10.8-13.0) SEC INR (0.9-1.1) APTT (24.1-38.0) SEC Sodium (135-145) mmol/L Potassium (3.3-5.1) mmol/l Chloride (96-108) mmol/L Carbon Dioxide (22-29) mmol/L Anion Gap (12-20) BUN (9-16) mg/dL Creatinine (0.5-1.4) mg/dL Estim Creat Clear Calc Estimated GFR Random Glucose (60-115) mg/dL Calcium (8.4-10.2) mg/dL Magnesium (1.6-2.6) mg/dL Total Bilirubin (0.0-1.0) mg/dL Direct Bilirubin (0.0-0.5) mg/dL AST (5-31) U/L ALT (0-31) U/L Alkaline Phosphatase (39-117) U/L Troponin I High Sens < 3.5 (<3.5-17.0) ng/L B-Natriuretic Peptide 96 (<100) pg/mL Total Protein (6.5-8.0) g/dL Albumin (3.5-5.0) g/dL ECG Data ECG #1: Attestation: I personally reviewed and interpreted this ECG as follows: ECG interpretation date: 09/09/20 ECG interpretation time: 11:12 Interpretation: normal sinus rhythm, HR 98, prolonged QTc 480 ms, normal IN interval. no ischemic changes Scores Heart Score History: -0- slightly suspicious ECG: -0- normal Age: -0- < or = 45 Risk factory: -0- no risk factors known Troponin: -0- < or = normal limit Score: 0 Risk: 1.7% Critical Care Time Critical Care Time Critical Care Time: Yes Total Critical Care Time: 35 Attestation: I attest to this time being spent at the bedside for multiple re- evaluations of anxiety & chest pain. Multiple IV medications were required with need for continuous hemodynamic monitoring. Discharge Plan Discharge Clinical Impression: Acute anxiety Patient Disposition: Home, Self-Care Instructions: Anxiety (ED), Panic Attack (ED) Additional Instructions: Your lab workup and EKG today were unremarkable. Your symptoms were most likely due to panic attack. Recommend following up with your Psychiatrist and Therapist SHOAIB. Take your Xanax as prescribed. Follow up with your Primary Care Doctor SHAOIB. Come back to the ER if you develop recurrent chest pain or any other concerning symptoms. Prescriptions: No Action tuhaucqtrd-hnfgmwunrnlin-chxo [Fioricet] 50-300-40 mg capsule 1 cap PO Q8H PRN (Reason: pain) Qty: 14 RF: 0 lorazepam [Ativan] 0.5 mg tablet 0.5 mg PO TID PRN (Reason: anxiety) Qty: 10 RF: 0 egiefzaljy-ueskiqchpovyn-vyqd 50-325-40 mg Tablet 2 tab PO DAILY RF: 0 clonidine HCl 0.1 mg Tablet 0.1 mg PO TID 30 Days Qty: 90 RF: 0 hydroxyzine HCl 25 mg Tablet 25 mg PO Q6H PRN (Reason: anxiety/opiate withdrawl) 30 Days Qty: 60 RF: 0 lorazepam 1 mg Tablet 1 mg PO TID 30 Days Qty: 0 RF: 0 trazodone 50 mg Tablet 50 mg PO BEDTIME MRX1 PRN (Reason: Insomnia) 30 Days Qty: 60 RF: 0 oxcarbazepine 300 mg Tablet 300 mg PO BID 30 Days Qty: 60 RF: 0 desvenlafaxine succinate 100 mg Tablet Extended Release 24 Hr 100 mg PO DAILY 30 Days Qty: 30 RF: 0 hydroxyzine HCl 50 mg tablet 50 mg PO BID PRN (Reason: anxiety) Qty: 10 RF: 0 Stand Alone Forms: Work/School Release Interventions: ED Discharge Assessment Last Done: 09/09/20 14:16 Discharge Date/Time: 09/09/20 14:17
[2020-09-09] MEDS: Ketorolac Tromethamine 30 MG/ML VIAL IVPUSH (10:54)
--- NOTE | 2020-09-09 10:59 | PC.NURSE ---
EKG has been delayed because pt has been unable to lay still. She has been crying, thrashing her legs. She was medicated for symptoms with little improvement, has been medicated further.
[2020-09-09 11:25] LABS: MANUAL DIFF FLAG NO
[2020-09-09 11:27] LABS: Basophils Absolute Auto 0.1 X10*3/uL (0.0-0.2); Basophils Percent Auto 0.6 % (0-2); Eosinophils Percent Auto 0.3 % (0-4); Hemoglobin 11.1 g/dl (12.0-16.0); Imm Gran Abs Auto 0.03 X10*3/uL (0.00-0.03); Imm Gran Pct Auto 0.3 % (0.0-0.4); Lymphocytes Absolute Auto 1.4 X10*3/uL (1.2-4.9); Lymphocytes Percent Auto 16.2 % (20-40); Mean Corpuscular HGB Conc 32.6 g/dl (31.0-35.0); Mean Corpuscular Hemoglobin 28.7 pg (27.0-33.0); Mean Corpuscular Volume 87.9 fL (80-98); Mean Platelet Volume 9.8 fL (9.4-12.3); Monocytes Absolute Auto 0.7 X10*3/uL (0.1-1.2); Monocytes Percent Auto 8.2 % (2-11); Neutrophils Absolute Auto 6.5 X10*3/uL (2.0-8.3); Neutrophils Percent Auto 74.4 % (45-73); Platelet Count 270 X10*3/uL (160-400); Red Blood Count 3.87 X10*6/uL (4.20-5.50); Red Cell Distribution Width 14.1 % (11.0-16.0); White Blood Count 8.8 X10*3/uL (4.8-10.8)
[2020-09-09 11:40] LABS: INTERNATIONAL NORM RATIO 1.1 (0.9-1.1); Prothrombin Time 12.6 SEC (10.8-13.0)
[2020-09-09 11:42] LABS: Partial Thromboplastin Time 33.7 SEC (24.1-38.0)
[2020-09-09] MEDS: Haloperidol Lactate 5 MG/ML VIAL 2.5 MG IM (11:48)
[2020-09-09 12:03] LABS: Alanine Aminotransferase 21 U/L (0-31); Albumin Level 3.7 g/dL (3.5-5.0); Alkaline Phosphatase 69 U/L (39-117); Anion Gap 11 (12-20); Aspartate Amino Transferase 18 U/L (5-31); Bilirubin Direct 0.2 mg/dL (0.0-0.5); Bilirubin Total 0.5 mg/dL (0.0-1.0); Blood Urea Nitrogen 8 mg/dL (9-16); Calcium 8.5 mg/dL (8.4-10.2); Carbon Dioxide 25 mmol/L (22-29); Chloride 109 mmol/L (96-108); Creatinine Clr Calc Pharmacy 109.6; Estimated Glomerular Filt Rate > 60; Glucose Random 117 mg/dL (60-115); Potassium 3.5 mmol/l (3.3-5.1); Sodium 141 mmol/L (135-145); Total Protein 6.4 g/dL (6.5-8.0)
[2020-09-09 12:08] LABS: B Type Natriuretic Peptide 96 pg/mL (<100); Troponin-I High Sensitivity < 3.5 ng/L (<3.5-17.0)
[2020-09-09] MEDS: Omeprazole 40 MG CAPSULE.DR PO (12:18)
[2020-09-09] MEDS: Lidocaine HCl Viscous 2 % 15 ML SOLUTION MUCOUS MEM (12:18)
[2020-09-09] MEDS: Magnesium Hydrox/Alum Hydrox 30 ML ORAL.SUSP PO (12:18)
--- NOTE | 2020-09-09 12:23 | PC.NURSE ---
pt was quiet for about 30 minutes, then began crying loudly again, with heavy fast respirations. Approached pt to check symptoms, she states the medications wore off and is asking for more. She has been instructed to slow her breathing and use other diversion activities but has not. Pt remains tearful. She has been medicated for epigastric pain. will continue to observe.
--- NOTE | 2020-09-09 13:45 | PC.NURSE ---
pt awake, calm. She awaits dispo.
[2020-09-09 13:46] VITALS: BP 116/76; PULSE 98; RESP 28; TEMP 37.1; O2SAT 97
== END 2020-09-09 14:17 | disposition home or self-care (01) ==
PROVIDERS: Physician Assistant; Emergency Provider Emergency Medicine; PCP Internal Medicine
DX: F41.9 Anxiety disorder, unspecified (principal); F41.0 Panic disorder [episodic paroxysmal anxiety]; R51.9 Headache, unspecified; Z79.899 Other long term (current) drug therapy
CPT/HCPCS: 36415; 71045; 80048; 80076; 83735; 83880; 84484; 85025; 85610; 85730; 93005; 96361; 96372; 96374; 96375; 96376; 99284; 99291; J1200; J1885; J2060

== ENCOUNTER 2020-09-12 22:57 | Emergency (ER) | payer OTHER, SELFPAY ==
[2020-09-12 22:59] VITALS: BP 131/89; PULSE 98; RESP 18; TEMP 36.3; O2SAT 97; BMI 34.7
--- NOTE | 2020-09-13 00:47 | ECG_ITS ---
Test Reason : CHEST PAIN Blood Pressure : / mmHG Vent. Rate : 086 BPM Atrial Rate : 086 BPM P-R Int : 104 ms QRS Dur : 074 ms QT Int : 382 ms P-R-T Axes : 068 047 043 degrees QTc Int : 457 ms Sinus rhythm with sinus arrhythmia with short [place] Otherwise normal ECG When compared with ECG of 09-SEP-2020 11:01, No significant change was found Referred By: Pat Flores Electronically Signed By:NAKUL WARD MD
[2020-09-13] MEDS: diphenhydrAMINE HCL 50 MG/ML VIAL IM (01:16)
[2020-09-13] MEDS: Ketorolac Tromethamine 15 MG/ML VIAL IM (01:16)
--- NOTE | 2020-09-13 01:17 | ED.ANXIETY ---
HPI - Anxiety General Chief Complaint: Headache Stated Complaint: chest pain,headacche Time Seen by Provider: 09/13/20 00:41 Source: patient Mode of arrival: ambulatory Limitations: no limitations History of Present Illness HPI narrative: This is a 45-year-old female who presents with worsening anxiety over the past couple of days that is associated with headache as well as palpitations, sweating, and tremulousness. She states that the symptoms are very consistent with her prior presentation on 09/09 for which she was worked up for evidence of any cardiac or vascular abnormalities. Otherwise, she denies any fevers, chills, GI symptoms other than occasional nausea and denies any urinary pain/burning/frequency. She continues to state that she is unable to reach out to her psychiatrist because she is in between changing them over and is having some difficulty reaching them but denies any thoughts of wanting to harm herself and declines speaking with anyone from the crisis team here tonight. Related Data Home Medications Medication Instructions Recorded Confirmed qnfboodtkr-ewaxatjwywapm-yvmr 2 tab PO DAILY 06/17/20 06/18/20 Previous Rx's Medication Instructions Recorded clonidine HCl 0.1 mg PO TID 30 Days #90 tab 06/26/20 desvenlafaxine succinate 100 mg PO DAILY 30 Days #30 tab 06/26/20 hydroxyzine HCl 25 mg PO Q6H PRN 30 Days #60 tab 06/26/20 lorazepam 1 mg PO TID 30 Days #0 tab 06/26/20 oxcarbazepine 300 mg PO BID 30 Days #60 tab 06/26/20 trazodone 50 mg PO BEDTIME MRX1 PRN 30 Days 06/26/20 #60 tab gcyxfshjjo-nxxbuypdxxauk-igyz 1 cap PO Q8H PRN #14 cap 08/15/20 [Fioricet] lorazepam [Ativan] 0.5 mg PO TID PRN #10 tab 08/15/20 hydroxyzine HCl 50 mg PO BID PRN #10 tab 08/19/20 Allergies Allergy/AdvReac Type Severity Reaction Status Date / Time methocarbamol [From ROBAXIN] Allergy Intermediate NAUSEA & Verified 08/15/20 18:13 VOMITING metoclopramide [From REGLAN] Allergy Intermediate PANIC Verified 08/15/20 18:13 ATTACK sumatriptan [From IMITREX] Allergy Intermediate NAUSEA & Verified 08/15/20 18:13 VOMITING hydrocodone [HYDROCODONE] Allergy Unknown UNKNOWN Verified 08/15/20 18:13 tramadol [TRAMADOL] Allergy Unknown UNKNOWN Verified 08/15/20 18:13 Review of Systems Review of Systems: Pertinent positives and negatives as stated in HPI 10 point review of systems is otherwise negative. [facility] Past Medical History Source: nursing notes reviewed Medical History Anxiety Depression Migraines Panic attack Social History Social History Household Members: Children Housing: Apartment Alcohol intake: never Smoking Status: Never smoker Advance Directives: No Advance Directives Information Provided: No service: No Sexual orientation: Straight/Heterosexual Physical Exam Vital Signs: Vital Signs: Last Vital Signs Temp 97.4 F 09/12/20 22:59 Pulse 98 09/12/20 22:59 Resp 18 09/12/20 22:59 BP 131/89 09/12/20 22:59 Pulse Ox 97 09/12/20 22:59 Body Mass Index 34.7 VITAL SIGNS: Reviewed. GENERAL: Well developed, well nourished, in no acute distress. HEAD: Normocephalic/atraumatic, EYES: PERRLA, EOMI intact without pain, no nystagmus/pallor/icterus noted OROPHARYNX: no oral lesions noted, posterior pharynx clear and non-erythematous without noted tonsillar enlargement/erythema/exudates NECK: Supple, no adenopathy LUNGS: Normal breath sounds. No adventitious sounds or accessory muscle use. SpO2<97> CARDIOVASCULAR: Regular rate and rhythm without noted murmurs, no JVD or lower extremity edema. ABDOMEN: Soft, non-tender, non-distended with bowel sounds. No rigidity. No guarding. No palpable masses or hernias noted NEUROLOGIC: Alert and oriented x 4. Strength and sensation to light touch were grossly intact x 4. PSYCH: Anxiety, normal affect Course Course Course Narrative: This is a 45-year-old female with history and clinical presentation consistent with poorly controlled anxiety and stress for which she has declined resources here in the emergency department. On review of all previous records and workups there are no acute changes to suggest further laboratory workup and on review of EKG there are no acute changes to suggest arrhythmia or ischemic etiologies for patient's chest discomfort today. Patient was provided with a combination of medications for treatment of her headache with good resolution of that headache on re-evaluation. She will be discharged home in stable condition with strong recommendations that she follow up with her primary care provider as well as her psychiatrist and therapist. MDM - Anxiety ECG Data Attestation: I personally reviewed and interpreted this ECG as follows: Prior ECG tracings: available for review (09/09/2020 no acute changes on comparison) Interpretation: Sinus rhythm, HR-86, no evidence of acute ischemia, [place]/QRS/QTC are within normal limits. Discharge Plan Discharge Clinical Impression: Anxiety Patient Disposition: Home, Self-Care Instructions: Anxiety (ED) Additional Instructions: Please resume medications that you have previously been prescribed and increase your fluid hydration especially with water. Please call the office of your primary care provider and/or your psychiatrist on Monday morning to set up an appointment for further evaluation and management of your recurrent symptoms. Do not hesitate to return the emergency department should you experience any worsening of your symptoms, shortness of breath, chest pain/palpitations. Prescriptions: No Action sevbtcmzia-ewtnjxvmwplnx-mbnx [Fioricet] 50-300-40 mg capsule 1 cap PO Q8H PRN (Reason: pain) Qty: 14 RF: 0 lorazepam [Ativan] 0.5 mg tablet 0.5 mg PO TID PRN (Reason: anxiety) Qty: 10 RF: 0 lgwxwxgywv-hrwarfxyronig-rkdi 50-325-40 mg Tablet 2 tab PO DAILY RF: 0 clonidine HCl 0.1 mg Tablet 0.1 mg PO TID 30 Days Qty: 90 RF: 0 hydroxyzine HCl 25 mg Tablet 25 mg PO Q6H PRN (Reason: anxiety/opiate withdrawl) 30 Days Qty: 60 RF: 0 lorazepam 1 mg Tablet 1 mg PO TID 30 Days Qty: 0 RF: 0 trazodone 50 mg Tablet 50 mg PO BEDTIME MRX1 PRN (Reason: Insomnia) 30 Days Qty: 60 RF: 0 oxcarbazepine 300 mg Tablet 300 mg PO BID 30 Days Qty: 60 RF: 0 desvenlafaxine succinate 100 mg Tablet Extended Release 24 Hr 100 mg PO DAILY 30 Days Qty: 30 RF: 0 hydroxyzine HCl 50 mg tablet 50 mg PO BID PRN (Reason: anxiety) Qty: 10 RF: 0 Referrals: Erik Lowery MD [Primary Care Provider] - 2 days (Please re-evaluate this patient that is under your care for further outpatient management of her anxiety and medication management.)
[2020-09-13] MEDS: Acetaminophen 325 MG TABLET 975 MG PO (01:20)
== END 2020-09-13 02:51 | disposition home or self-care (01) ==
PROVIDERS: Emergency Provider Student in an Organized Health Care Education/Training Program; PCP Internal Medicine
DX: R51.9 Headache, unspecified (principal); R07.9 Chest pain, unspecified; F41.9 Anxiety disorder, unspecified; Z79.899 Other long term (current) drug therapy
CPT/HCPCS: 93005; 96372; 99283; 99284; J1200; J1885

== ENCOUNTER 2020-10-18 19:25 | Emergency (ER) | payer OTHER, SELFPAY ==
--- NOTE | 2020-10-18 20:17 | ECG_ITS ---
Test Reason : CHEST TIGHTNESS Blood Pressure : / mmHG Vent. Rate : 092 BPM Atrial Rate : 092 BPM P-R Int : 120 ms QRS Dur : 070 ms QT Int : 354 ms P-R-T Axes : 051 011 035 degrees QTc Int : 437 ms Normal sinus rhythm Normal ECG When compared with ECG of 13-SEP-2020 01:06, ST now depressed in Inferior leads Referred By: Generic ED Physician Electronically Signed By:NAKUL WARD MD
[2020-10-18 20:58] VITALS: BP 104/76; PULSE 102; RESP 16; TEMP 36.6; O2SAT 98; BMI 72.5
--- NOTE | 2020-10-18 21:01 | ED.HA ---
HPI - Headache General Chief Complaint: Headache Stated Complaint: Migraine/Anxiety Time Seen by Provider: 10/18/20 20:32 Source: patient Mode of arrival: ambulatory History of Present Illness HPI Narrative: This is a 45-year-old female with longstanding history of anxiety, headaches, nausea and vomiting who returns to the emergency department for complaints of headache that started after a few episodes of nausea and vomiting, heart palpitations, as well as chest pain that she states has been persistent. This is not associated with fever, chills, diarrhea, and patient states the abdominal discomfort she feels is likely secondary to her nausea and vomiting. Patient sources that she was evaluated by her psychiatrist last week and she states that this provider did not want to change her current treatment plan. On review of neurology notes from June the assessment was that her headaches are primarily associated with her underlying bipolar and anxiety. Patient states she does have a follow-up appointment with her psychiatrist on 10/27. Related Data Home Medications Medication Instructions Recorded Confirmed zoaxfcanpn-xizoxfpzjdbmu-[id number] 2 tab PO DAILY 06/17/20 06/18/20 Previous Rx's Medication Instructions Recorded clonidine HCl 0.1 mg PO TID 30 Days #90 tab 06/26/20 desvenlafaxine succinate 100 mg PO DAILY 30 Days #30 tab 06/26/20 hydroxyzine HCl 25 mg PO Q6H PRN 30 Days #60 tab 06/26/20 lorazepam 1 mg PO TID 30 Days #0 tab 06/26/20 oxcarbazepine 300 mg PO BID 30 Days #60 tab 06/26/20 trazodone 50 mg PO BEDTIME MRX1 PRN 30 Days 06/26/20 #60 tab bpiwdofpxj-myevreqmxuseb-fbng 1 cap PO Q8H PRN #14 cap 08/15/20 [Fioricet] lorazepam [Ativan] 0.5 mg PO TID PRN #10 tab 08/15/20 hydroxyzine HCl 50 mg PO BID PRN #10 tab 08/19/20 Allergies Allergy/AdvReac Type Severity Reaction Status Date / Time methocarbamol [From ROBAXIN] Allergy Intermediate NAUSEA & Verified 08/15/20 18:13 VOMITING metoclopramide [From REGLAN] Allergy Intermediate PANIC Verified 08/15/20 18:13 ATTACK sumatriptan [From IMITREX] Allergy Intermediate NAUSEA & Verified 08/15/20 18:13 VOMITING hydrocodone [HYDROCODONE] Allergy Unknown UNKNOWN Verified 08/15/20 18:13 tramadol [TRAMADOL] Allergy Unknown UNKNOWN Verified 08/15/20 18:13 Review of Systems Review of Systems: Pertinent positives and negatives as stated in HPI 10 point review of systems is otherwise negative. [facility] Past Medical History Source: nursing notes reviewed Medical History Anxiety Depression Migraines Panic attack Social History Social History Household Members: Children Housing: Apartment Alcohol intake: never Smoking Status: Never smoker Advance Directives: No Advance Directives Information Provided: Yes service: No Sexual orientation: Straight/Heterosexual Physical Exam Vital Signs: Vital Signs: Last Vital Signs Temp 97.9 F 10/18/20 20:58 Pulse 102 H 10/18/20 20:58 Resp 16 10/18/20 20:58 BP 104/76 10/18/20 20:58 Pulse Ox 98 10/18/20 20:58 Body Mass Index 72.5 VITAL SIGNS: Reviewed. GENERAL: Well developed, well nourished, moderate anxiety. EYES: PERRLA, EOMI EARS: Ext canals without abnormality, TMs non-bulging and non-erythematous NOSE: Nares patent bilateral OROPHARYNX: no oral lesions noted, posterior pharynx clear NECK: Supple, no adenopathy LUNGS: Normal breath sounds. No adventitious sounds or accessory muscle use. SpO2<98> CARDIOVASCULAR: Regular rate and rhythm without noted murmurs ABDOMEN: Soft, non-tender, non-distended with bowel sounds. NEUROLOGIC: Alert and oriented x 4. Strength and sensory intact x4. PSYCH: Anxiety Course Course Course Narrative: This is a 45-year-old female with history and clinical presentation suggestive of acute anxiety exacerbation, but will rule out cardiopulmonary, electrolyte/infectious/anemia etiologies. -labs, U preg, U tox, EKG Of all investigations there is no evidence cardiac ischemia, infection, electrolyte abnormalities, or anemia. The noted bicarb 20 is likely secondary to patient's hyperventilation. Urine tox was positive for opiates, benzos, marijuana. 2301: Patient eloped, but was noted to be tolerating oral intake prior to elopement. MDM - Headache Lab Data Result diagrams: 10/18/20 22:05 10/18/20 22:05 Labs: Lab Results 10/18/20 10/18/20 10/18/20 Range/Units 21:49 21:49 21:50 WBC (4.8-10.8) X10*3/uL RBC (4.20-5.50) X10*6/uL Hgb (12.0-16.0) g/dl Hct (37-47) % MCV (80-98) fL MCH (27.0-33.0) pg MCHC (31.0-35.0) g/dl RDW (11.0-16.0) % Plt Count (160-400) X10*3/uL MPV (9.4-12.3) fL Immature Gran % (Auto) (0.0-0.4) % Neut % (Auto) (45-73) % Lymph % (Auto) (20-40) % King % (Auto) (2-11) % Eos % (Auto) (0-4) % Baso % (Auto) (0-2) % Lymph # (Auto) (1.2-4.9) X10*3/uL King # (Auto) (0.1-1.2) X10*3/uL Eos # (Auto) (0.0-0.4) X10*3/uL Baso # (Auto) (0.0-0.2) X10*3/uL Abs Immat Gran (auto) (0.00-0.03) X10*3/uL Absolute Neuts (auto) (2.0-8.3) X10*3/uL Absolute Nucleated RBC (0.0-0.012) X10*3/uL Nucleated RBC % (auto) (0.0-0.2) /100WBC Sodium (135-145) mmol/L Potassium (3.3-5.1) mmol/L Chloride (96-108) mmol/L Carbon Dioxide (22-29) mmol/L Anion Gap (12-20) BUN (9-16) mg/dL Creatinine (0.5-1.4) mg/dL Estim Creat Clear Calc Estimated GFR Random Glucose (60-115) mg/dL Calcium (8.4-10.2) mg/dL Total Bilirubin (0.0-1.0) mg/dL AST (5-31) U/L ALT (0-31) U/L Alkaline Phosphatase (39-117) U/L Troponin I High Sens (<3.5-17.0) ng/L Total Protein (6.5-8.0) g/dL Albumin (3.5-5.0) g/dL Urine Color PINK Urine Appearance HAZY Urine pH 8.0 (5.0-8.0) Ur Specific [place] 1.020 (1.005-1.025) Urine Protein 1+ H (NEG-TRACE) MG/DL Urine Glucose (UA) NEG (NEG) MG/DL Urine Ketones NEG (NEG) MG/DL Urine Blood 3+ H (NEG) Urine Nitrite NEG (NEG) Ur Leukocyte Esterase NEG (NEG) Urine RBC 10-14 H (0) /HPF Urine WBC 1-4 (0-4) /HPF Ur Squamous Epith Cells 2+ /LPF Urine Bacteria 2+ /LPF Urine Mucus 2+ /LPF Urine Test NEGATIVE (NEGATIVE) Urine Opiates Screen POSITIVE H (Not Detect) Ur Barbiturates Screen Not Detected (Not Detect) Ur Phencyclidine Scrn Not Detected (Not Detect) Ur Amphetamines Screen Not Detected (Not Detect) U Benzodiazepines Scrn POSITIVE H (Not Detect) Urine Cocaine Screen Not Detected (Not Detect) U Marijuana (THC) Screen POSITIVE H (Not Detect) 10/18/20 10/18/20 10/18/20 Range/Units 22:05 22:05 22:05 WBC 8.4 (4.8-10.8) X10*3/uL RBC 4.58 (4.20-5.50) X10*6/uL Hgb 12.9 (12.0-16.0) g/dl Hct 39.0 (37-47) % MCV 85.2 (80-98) fL MCH 28.2 (27.0-33.0) pg MCHC 33.1 (31.0-35.0) g/dl RDW 12.7 (11.0-16.0) % Plt Count 284 (160-400) X10*3/uL MPV 10.2 (9.4-12.3) fL Immature Gran % (Auto) 0.2 (0.0-0.4) % Neut % (Auto) 55.4 (45-73) % Lymph % (Auto) 32.8 (20-40) % King % (Auto) 9.8 (2-11) % Eos % (Auto) 1.0 (0-4) % Baso % (Auto) 0.8 (0-2) % Lymph # (Auto) 2.8 (1.2-4.9) X10*3/uL King # (Auto) 0.8 (0.1-1.2) X10*3/uL Eos # (Auto) 0.1 (0.0-0.4) X10*3/uL Baso # (Auto) 0.1 (0.0-0.2) X10*3/uL Abs Immat Gran (auto) 0.02 (0.00-0.03) X10*3/uL Absolute Neuts (auto) 4.7 (2.0-8.3) X10*3/uL Absolute Nucleated RBC 0.000 (0.0-0.012) X10*3/uL Nucleated RBC % (auto) 0.0 (0.0-0.2) /100WBC Sodium 137 (135-145) mmol/L Potassium 3.9 (3.3-5.1) mmol/L Chloride 106 (96-108) mmol/L Carbon Dioxide 20 L (22-29) mmol/L Anion Gap 15 (12-20) BUN 16 D (9-16) mg/dL Creatinine 0.74 (0.5-1.4) mg/dL Estim Creat Clear Calc 157.9 Estimated GFR > 60 Random Glucose 90 (60-115) mg/dL Calcium 9.4 D (8.4-10.2) mg/dL Total Bilirubin 0.3 (0.0-1.0) mg/dL AST 14 (5-31) U/L ALT 13 (0-31) U/L Alkaline Phosphatase 68 (39-117) U/L Troponin I High Sens < 3.5 (<3.5-17.0) ng/L Total Protein 7.4 (6.5-8.0) g/dL Albumin 4.4 (3.5-5.0) g/dL Urine Color Urine Appearance Urine pH (5.0-8.0) Ur Specific [place] (1.005-1.025) Urine Protein (NEG-TRACE) MG/DL Urine Glucose (UA) (NEG) MG/DL Urine Ketones (NEG) MG/DL Urine Blood (NEG) Urine Nitrite (NEG) Ur Leukocyte Esterase (NEG) Urine RBC (0) /HPF Urine WBC (0-4) /HPF Ur Squamous Epith Cells /LPF Urine Bacteria /LPF Urine Mucus /LPF Urine Test (NEGATIVE) Urine Opiates Screen (Not Detect) Ur Barbiturates Screen (Not Detect) Ur Phencyclidine Scrn (Not Detect) Ur Amphetamines Screen (Not Detect) U Benzodiazepines Scrn (Not Detect) Urine Cocaine Screen (Not Detect) U Marijuana (THC) Screen (Not Detect) ECG Data Attestation: I personally reviewed and interpreted this ECG as follows: Prior ECG tracings: available for review (09/13/2020 no acute changes on comparison) Interpretation: Normal sinus rhythm, HR-92, no evidence of acute ischemia, AK/QRS/QTC is within normal limits. Discharge Plan Discharge Clinical Impression: Acute anxiety, Headache Patient Disposition: Elopement Prescriptions: No Action yznwmhvfcu-wxzivxujmhegk-ymah [Fioricet] 50-300-40 mg capsule 1 cap PO Q8H PRN (Reason: pain) Qty: 14 RF: 0 lorazepam [Ativan] 0.5 mg tablet 0.5 mg PO TID PRN (Reason: anxiety) Qty: 10 RF: 0 mpkaaexodz-ftcuhlncychvz-xsht 50-325-40 mg Tablet 2 tab PO DAILY RF: 0 clonidine HCl 0.1 mg Tablet 0.1 mg PO TID 30 Days Qty: 90 RF: 0 hydroxyzine HCl 25 mg Tablet 25 mg PO Q6H PRN (Reason: anxiety/opiate withdrawl) 30 Days Qty: 60 RF: 0 lorazepam 1 mg Tablet 1 mg PO TID 30 Days Qty: 0 RF: 0 trazodone 50 mg Tablet 50 mg PO BEDTIME MRX1 PRN (Reason: Insomnia) 30 Days Qty: 60 RF: 0 oxcarbazepine 300 mg Tablet 300 mg PO BID 30 Days Qty: 60 RF: 0 desvenlafaxine succinate 100 mg Tablet Extended Release 24 Hr 100 mg PO DAILY 30 Days Qty: 30 RF: 0 hydroxyzine HCl 50 mg tablet 50 mg PO BID PRN (Reason: anxiety) Qty: 10 RF: 0 Interventions: ED Discharge Assessment Last Done: 10/18/20 23:01 Discharge Date/Time: 10/18/20 23:05
[2020-10-18 22:09] LABS: MANUAL DIFF FLAG NO
[2020-10-18 22:09] LABS: Glucose Urine UA NEG (NEG); Leukocyte Esterase Urine NEG (NEG); Nitrite Urine NEG (NEG); Urine Blood 3+ (NEG); Urine Ketones NEG (NEG); Urine Protein 1+ MG/DL (NEG-TRACE)
[2020-10-18] MEDS: hydrOXYzine HCL 50 MG TABLET PO (22:09)
[2020-10-18] MEDS: Acetaminophen 325 MG TABLET 975 MG PO (22:09)
[2020-10-18 22:10] LABS: Basophils Absolute Auto 0.1 X10*3/uL (0.0-0.2); Basophils Percent Auto 0.8 % (0-2); Eosinophils Absolute Auto 0.1 X10*3/uL (0.0-0.4); Hemoglobin 12.9 g/dl (12.0-16.0); Imm Gran Abs Auto 0.02 X10*3/uL (0.00-0.03); Imm Gran Pct Auto 0.2 % (0.0-0.4); Lymphocytes Absolute Auto 2.8 X10*3/uL (1.2-4.9); Lymphocytes Percent Auto 32.8 % (20-40); Mean Corpuscular HGB Conc 33.1 g/dl (31.0-35.0); Mean Corpuscular Hemoglobin 28.2 pg (27.0-33.0); Mean Corpuscular Volume 85.2 fL (80-98); Mean Platelet Volume 10.2 fL (9.4-12.3); Monocytes Absolute Auto 0.8 X10*3/uL (0.1-1.2); Monocytes Percent Auto 9.8 % (2-11); Neutrophils Absolute Auto 4.7 X10*3/uL (2.0-8.3); Neutrophils Percent Auto 55.4 % (45-73); Platelet Count 284 X10*3/uL (160-400); Red Blood Count 4.58 X10*6/uL (4.20-5.50); Red Cell Distribution Width 12.7 % (11.0-16.0); White Blood Count 8.4 X10*3/uL (4.8-10.8)
[2020-10-18] MEDS: Ketorolac Tromethamine 15 MG/ML VIAL IM (22:10)
[2020-10-18 22:11] LABS: Appearance Urine HAZY; Color Urine PINK
[2020-10-18 22:13] LABS: UPreg QC Valid YES; Urine Pregnancy NEGATIVE (NEGATIVE)
[2020-10-18 22:18] LABS: Bacteria Urine 2+ /LPF; Mucus Urine 2+ /LPF; Squamous Epithelial Cell Urine 2+ /LPF
[2020-10-18 22:33] LABS: Amphetamine Screen Urine Not Detected (Not Detect); Barbiturates, Urine Not Detected (Not Detect); Benzodiazepines Screen Urine POSITIVE (Not Detect); Cannabinoid Screen Urine POSITIVE (Not Detect); Cocaine Screen Urine Not Detected (Not Detect); Opiate Screen Urine POSITIVE (Not Detect); Phencyclidine Screen Urine Not Detected (Not Detect)
[2020-10-18 22:34] LABS: Alanine Aminotransferase 13 U/L (0-31); Albumin Level 4.4 g/dL (3.5-5.0); Alkaline Phosphatase 68 U/L (39-117); Anion Gap 15 (12-20); Aspartate Amino Transferase 14 U/L (5-31); Bilirubin Total 0.3 mg/dL (0.0-1.0); Blood Urea Nitrogen 16 mg/dL (9-16); Calcium 9.4 mg/dL (8.4-10.2); Carbon Dioxide 20 mmol/L (22-29); Chloride 106 mmol/L (96-108); Creatinine Clr Calc Pharmacy 157.9; Estimated Glomerular Filt Rate > 60; Glucose Random 90 mg/dL (60-115); Potassium 3.9 mmol/L (3.3-5.1); Sodium 137 mmol/L (135-145); Total Protein 7.4 g/dL (6.5-8.0)
[2020-10-18 22:38] LABS: Troponin-I High Sensitivity < 3.5 ng/L (<3.5-17.0)
== END 2020-10-18 23:05 | disposition left against medical advice (07) ==
PROVIDERS: Emergency Provider Student in an Organized Health Care Education/Training Program
DX: R51.9 Headache, unspecified (principal); R11.2 Nausea with vomiting, unspecified; F41.1 Generalized anxiety disorder; F43.0 Acute stress reaction; Z79.899 Other long term (current) drug therapy; Z20.822 Contact with and (suspected) exposure to COVID-19
CPT/HCPCS: 36415; 80053; 80307; 81001; 81003; 81025; 84484; 85025; 93005; 96372; 99283; 99284; J1885

== ENCOUNTER 2020-11-18 15:37 | Emergency (ER) | payer OTHER, SELFPAY ==
[2020-11-18 16:31] VITALS: BP 104/65; PULSE 128; RESP 26; TEMP 36.8; O2SAT 99; BMI 36.6
--- NOTE | 2020-11-18 16:31 | ED_ITS ---
HPI - Anxiety General Chief Complaint: Psychiatric Symptoms <Jose L Leyva NP - Last Filed: 11/18/20 20:58> Stated Complaint: ANXIETY ATTACK <Jose L Leyva NP - Last Filed: 11/18/20 20:58> Time Seen by Provider: 11/18/20 16:31 <Jose L Leyva NP - Last Filed: 11/18/20 20:58> Source: EMS <Jose L Leyva NP - Last Filed: 11/18/20 20:58> Mode of arrival: EMS <Jose L Leyva NP - Last Filed: 11/18/20 20:58> Limitations: no limitations <Jose L Leyva NP - Last Filed: 11/18/20 20:58> History of Present Illness HPI narrative: 45-year-old female familiar to this facility for prior psychiatric visits she has history of anxiety disorder, depression, migraine headaches and panic attacks she has been hospitalized here in the past June she presents today states she feels like she is having a panic attack took her medications at home has not helped. Denies any other medical problems. She denied SI HI to EMS at home upon arrival states she feels suicidal due to her anxiety. Denies any illicit drug use. <Jose L Leyva NP - Last Filed: 11/18/20 20:58> MD complaint: anxiety <Jose L Leyva NP - Last Filed: 11/18/20 20:58> Onset (ago): minute(s) <Jose L Leyva NP - Last Filed: 11/18/20 20:58> Severity: severe <Jose L Leyva NP - Last Filed: 11/18/20 20:58> Quality: constant <Jose L Leyva NP - Last Filed: 11/18/20 20:58> Place: home <Jose L Leyva NP - Last Filed: 11/18/20 20:58> History of similar episodes: Yes <Jose L Leyva NP - Last Filed: 11/18/20 20:58> Provoking factors: none known (States does not know exact trigger) <Jose L Leyva NP - Last Filed: 11/18/20 20:58> Relieving factors: medication (States sometimes her medications help her) <Jose L Leyva NP - Last Filed: 11/18/20 20:58> Exacerbating factors: nothing <Jose L Leyva NP - Last Filed: 11/18/20 20:58> Associated symptoms: denies other symptoms <Jose L Leyva NP - Last Filed: 11/18/20 20:58> Related Data Home Medications: Home Medications Medication Instructions Recorded Confirmed clonazepam 0.5 mg PO BID PRN 11/18/20 11/18/20 Previous Rx's Medication Instructions Recorded clonidine HCl 0.1 mg PO TID 30 Days #90 tab 06/26/20 <Jose L Leyva NP - Last Filed: 11/18/20 20:58> Allergies/Adverse Reactions: Allergies Allergy/AdvReac Type Severity Reaction Status Date / Time methocarbamol [From ROBAXIN] Allergy Intermediate NAUSEA & Verified 08/15/20 18:13 VOMITING metoclopramide [From REGLAN] Allergy Intermediate PANIC Verified 08/15/20 18:13 ATTACK sumatriptan [From IMITREX] Allergy Intermediate NAUSEA & Verified 08/15/20 18:13 VOMITING hydrocodone [HYDROCODONE] Allergy Unknown UNKNOWN Verified 08/15/20 18:13 tramadol [TRAMADOL] Allergy Unknown UNKNOWN Verified 08/15/20 18:13 <Jose L Leyva NP - Last Filed: 11/18/20 20:58> Review of Systems Review of Systems: Constitutional: No Weight loss, No Fever, No Chills, No Night Sweats, No Fatigue, No Malaise ENT/Mouth: No Hearing loss, No Ear Pain, No Nasal Congestion, No Sinus Pain, No Hoarseness, No sore throat, No Rhinorrhea, No Swallowing Difficulty Eyes: No Eye Pain, No Swelling, No Redness, No Foreign Body, No Discharge, No Vision Changes Cardiovascular: No Chest Pain, No SOB, No Dyspnea on Exertion, No Orthopnea, No Edema, No Palpitations Respiratory: No Cough, No Sputum, No Wheezing, No Smoke Exposure, No Dyspnea Gastrointestinal: No Nausea, No Vomiting, No Diarrhea, No Constipation, No abdominal Pain, No Hematochezia, No Melena Genitourinary: no irregular bleeding, No Dysuria, No Urinary Frequency, No Hematuria, No Urinary Incontinence, No Urgency, No Flank Pain, No Urinary Flow Changes, No Hesitancy Musculoskeletal: No joint pain, No Myalgias, No Joint Swelling Skin: No Skin Lesions, No rash Neuro: No Weakness, No Numbness, No Paresthesias, No Loss of Consciousness, No Dizziness, No Headache Psych: As noted per HPI Heme/Lymph: No Bruising, No Bleeding,No Lymphadenopathy Endocrine: No Polyuria, No Polydipsia, No Temperature Intolerance <Jose L Leyva NP - Last Filed: 11/18/20 20:58> Yes all other systems are reviewed and are negative <Jose L Leyva NP - Last Filed: 11/18/20 20:58> [facility] Past Medical History Medical History: Medical History Anxiety Depression Migraines Panic attack <Jose L Leyva NP - Last Filed: 11/18/20 20:58> Social History Social History: Social History Household Members: Children Housing: Apartment Alcohol intake: never Smoking Status: Never smoker Advance Directives: No Advance Directives Information Provided: Yes service: No Sexual orientation: Straight/Heterosexual <Jose L Leyva NP - Last Filed: 11/18/20 20:58> Physical Exam Vital Signs: Vital Signs: Last Vital Signs Temp 98.2 F 11/18/20 16:31 Pulse 107 H 11/19/20 04:03 Resp 22 H 11/19/20 04:02 BP 149/110 H 11/19/20 04:03 Pulse Ox 100 11/19/20 04:02 Body Mass Index 36.6 Reviewed <Jose L Leyva NP - Last Filed: 11/18/20 20:58> Vital Signs: Last Vital Signs Temp 98.2 F 11/18/20 16:31 Pulse 107 H 11/19/20 04:03 Resp 22 H 11/19/20 04:02 BP 149/110 H 11/19/20 04:03 Pulse Ox 100 11/19/20 04:02 Body Mass Index 36.6 <Kevin Zamora MD - Last Filed: 11/19/20 04:18> Const: General: anxious (Anxiously rocking back and forth and hyperventilating easy to redirect); No intoxicated appearing <Jose L Leyva NP - Last Filed: 11/18/20 20:58> Nutritional Appearance: average body habitus <Jose L Leyva [facility] Last Filed: 11/18/20 20:58> Orientation/consciousness: patient oriented x3 <[facility] Leyva [facility] Last Filed: 11/18/20 20:58> HENMT: Head: Yes normal to inspection <[facility] Leyva [facility] Last Filed: 11/18/20 20:58> Ears: hearing grossly normal bilaterally <[facility] Leyva, [facility] Last Filed: 11/18/20 20:58> Eyes: General: appearance normal, both eyes and all related structures <[facility] Leyva [facility] Last Filed: 11/18/20 20:58> Visual Gordillo: normal visual gordillo by confrontation <[facility] Leyva, [facility] Last Filed: 11/18/20 20:58> Neck: Neck: Yes normal visual inspection, No positive Brudzinski's sign, No po sitive Kernig's sign and No tender <[facility] Leyva, [facility] Last Filed: 11/18/20 20:58> Thyroid: Thyroid normal <[facility] Leyva [facility] Last Filed: 11/18/20 20:58> Chest: Chest palpation & inspection: normal inspection of the chest <[facility] Leyva, [facility] Last Filed: 11/18/20 20:58> Resp: Effort & Inspection: normal respiratory effort <[facility] Leyva, [facility] Last Filed: 11/18/20 20:58> Auscultation: clear to auscultation bilaterally <[facility] Leyva, [facility] Last Filed: 11/18/20 20:58> Cardio: Jugular venous distension: no JVD <[facility] Leyva, [facility] Last Filed: 11/18/20 20:58> Rhythm: regular rhythm [facility] Last Filed: 11/18/20 20:58> Heart sounds: S1 normal heart sound present and S2 normal heart sound present <[facility] Gordon [facility] Last Filed: 11/18/20 20:58> GI: Inspection: Yes normal to inspection <[facility] Gordon [facility] Last Filed: 11/18/20 20:58> Palpation (GI): Soft to palpation <[facility] Gordon [facility] Last Filed: 11/18/20 20:58> Percussion: Yes normal to percussion <Jose L Leyva NP - Last Filed: 11/18/20 20:58> Auscultation: normal bowel sounds <Jose L Leyva NP - Last Filed: 11/18/20 20:58> : General: Yes no CVA tenderness <Jose L Leyva NP - Last Filed: 11/18/20 20:58> Back/Spine/Pelvis: Back: no CVA tenderness <Jose L Leyva NP - Last Filed: 11/18/20 20:58> Skin: General skin exam: no rashes or lesions noted <Jose L Leyva NP - Last Filed: 11/18/20 20:58> Neuro: General: patient oriented x3 <Jose L Leyva NP - Last Filed: 11/18/20 20:58> Extrem: General: Yes normal to inspection <Jose L Leyva NP - Last Filed: 11/18/20 20:58> Course Course Course Narrative: In review 45-year-old female with above history presenting with complaint of anxiety attack history of such events in the past has had several visits and August and September were previously to this she was admitted to . Upon arrival hyperventilating and yelling though is redirectable requesting medication to help her with her panic attack. She otherwise denies any medical problems no chest pain or shortness of breath, no illicit drug use. Will give her lorazepam p.o. for panic attack and check labs and refer to care team for her suicidality. <Jose L Leyva NP - Last Filed: 11/18/20 20:58> Reevaluation(s) Reevaluation #1: Remains very agitated being vague as to what is causing this and yelling. States she wants something else for anxiety being very nonspecific. Will give her 5 of Zyprexa. Has had several benzos scripts filled in the past there is question of possible abuse she is specifically asking for Ativan IM. Her anxiety episode and yelling seems to be episodic mostly when she is told she will not be getting benzos for her anxiety and alternatives to be given. <Jose L Leyva NP - Last Filed: 11/18/20 20:58> Consultations Consultation #1: Case discussed with care team based on insurance need to see crisis. <Jose L Leyva NP - Last Filed: 11/18/20 20:58> Consultation #2: Crisis team consult placed. Sign into night team pending evaluation. She remains much calmer and resting at this time. <Jose L Leyva NP - Last Filed: 11/18/20 20:58> MDM - Anxiety Lab Data Result diagrams: : 11/18/20 18:56 11/18/20 18:56 <Jose L Leyva NP - Last Filed: 11/18/20 20:58> Labs: Lab Results 11/18/20 11/18/20 11/18/20 Range/Units 18:56 18:56 18:56 WBC 12.7 H (4.8-10.8) X10*3/uL RBC 4.84 (4.20-5.50) X10*6/uL Hgb 13.6 (12.0-16.0) g/dl Hct 41.1 (37-47) % MCV 84.9 (80-98) fL MCH 28.1 (27.0-33.0) pg MCHC 33.1 (31.0-35.0) g/dl RDW 12.9 (11.0-16.0) % Plt Count 352 (160-400) X10*3/uL MPV 10.1 (9.4-12.3) fL Immature Gran % (Auto) 0.5 H (0.0-0.4) % Neut % (Auto) 84.0 H (45-73) % Lymph % (Auto) 10.8 L (20-40) % [place] % (Auto) 4.2 (2-11) % Eos % (Auto) 0.0 (0-4) % Baso % (Auto) 0.5 (0-2) % Lymph # (Auto) 1.4 (1.2-4.9) X10*3/uL [place] # (Auto) 0.5 (0.1-1.2) X10*3/uL Eos # (Auto) 0.0 (0.0-0.4) X10*3/uL Baso # (Auto) 0.1 (0.0-0.2) X10*3/uL Abs Immat Gran (auto) 0.06 H (0.00-0.03) X10*3/uL Absolute Neuts (auto) 10.7 H (2.0-8.3) X10*3/uL Absolute Nucleated RBC 0.000 (0.0-0.012) X10*3/uL Nucleated RBC % (auto) 0.0 (0.0-0.2) /100WBC Sodium 137 (135-145) mmol/L Potassium 3.6 (3.3-5.1) mmol/L Chloride 102 (96-108) mmol/L Carbon Dioxide 20 L (22-29) mmol/L Anion Gap 19 (12-20) BUN 16 (9-16) mg/dL Creatinine 0.93 (0.5-1.4) mg/dL Estim Creat Clear Calc 81.7 Estimated GFR > 60 Random Glucose 129 H D (60-115) mg/dL Calcium 9.9 (8.4-10.2) mg/dL Total Bilirubin 0.7 (0.0-1.0) mg/dL AST 22 D (5-31) U/L ALT 17 (0-31) U/L Alkaline Phosphatase 88 D (39-117) U/L Total Protein 8.2 H (6.5-8.0) g/dL Albumin 4.7 (3.5-5.0) g/dL Urine Color Urine Appearance Urine pH (5.0-8.0) Ur Specific [place] (1.005-1.025) Urine Protein (NEG-TRACE) MG/DL Urine Glucose (UA) (NEG) MG/DL Urine Ketones (NEG) MG/DL Urine Blood (NEG) Urine Nitrite (NEG) Ur Leukocyte Esterase (NEG) Urine RBC (0) /HPF Urine WBC (0-4) /HPF Ur Squamous Epith Cells /LPF Urine Bacteria /LPF Urine Test (NEGATIVE) Urine Opiates Screen (Not Detect) Ur Barbiturates Screen (Not Detect) Ur Phencyclidine Scrn (Not Detect) Ur Amphetamines Screen (Not Detect) U Benzodiazepines Scrn (Not Detect) Urine Cocaine Screen (Not Detect) U Marijuana (THC) Screen (Not Detect) Ethyl Alcohol < 10 mg/dL COVID-19 ([facility]) (Negative) COVID-19 Clin Com 11/18/20 11/18/20 11/18/20 Range/Units 19:52 19:52 19:53 WBC (4.8-10.8) X10*3/uL RBC (4.20-5.50) X10*6/uL Hgb (12.0-16.0) g/dl Hct (37-47) % MCV (80-98) fL MCH (27.0-33.0) pg MCHC (31.0-35.0) g/dl RDW (11.0-16.0) % Plt Count (160-400) X10*3/uL MPV (9.4-12.3) fL Immature Gran % (Auto) (0.0-0.4) % Neut % (Auto) (45-73) % Lymph % (Auto) (20-40) % [place] % (Auto) (2-11) % Eos % (Auto) (0-4) % Baso % (Auto) (0-2) % Lymph # (Auto) (1.2-4.9) X10*3/uL [place] # (Auto) (0.1-1.2) X10*3/uL Eos # (Auto) (0.0-0.4) X10*3/uL Baso # (Auto) (0.0-0.2) X10*3/uL Abs Immat Gran (auto) (0.00-0.03) X10*3/uL Absolute Neuts (auto) (2.0-8.3) X10*3/uL Absolute Nucleated RBC (0.0-0.012) X10*3/uL Nucleated RBC % (auto) (0.0-0.2) /100WBC Sodium (135-145) mmol/L Potassium (3.3-5.1) mmol/L Chloride (96-108) mmol/L Carbon Dioxide (22-29) mmol/L Anion Gap (12-20) BUN (9-16) mg/dL Creatinine (0.5-1.4) mg/dL Estim Creat Clear Calc Estimated GFR Random Glucose (60-115) mg/dL Calcium (8.4-10.2) mg/dL Total Bilirubin (0.0-1.0) mg/dL AST (5-31) U/L ALT (0-31) U/L Alkaline Phosphatase (39-117) U/L Total Protein (6.5-8.0) g/dL Albumin (3.5-5.0) g/dL Urine Color YELLOW Urine Appearance CLEAR Urine pH 8.5 H (5.0-8.0) Ur Specific [place] 1.015 (1.005-1.025) Urine Protein NEG (NEG-TRACE) MG/DL Urine Glucose (UA) NEG (NEG) MG/DL Urine Ketones 40 (NEG) MG/DL Urine Blood 3+ H (NEG) Urine Nitrite NEG (NEG) Ur Leukocyte Esterase NEG (NEG) Urine RBC 1-4 (0) /HPF Urine WBC 1-4 (0-4) /HPF Ur Squamous Epith Cells TRACE /LPF Urine Bacteria TRACE /LPF Urine Test NEGATIVE (NEGATIVE) Urine Opiates Screen POSITIVE H (Not Detect) Ur Barbiturates Screen Not Detected (Not Detect) Ur Phencyclidine Scrn Not Detected (Not Detect) Ur Amphetamines Screen Not Detected (Not Detect) U Benzodiazepines Scrn Not Detected (Not Detect) Urine Cocaine Screen Not Detected (Not Detect) U Marijuana (THC) Screen Not Detected (Not Detect) Ethyl Alcohol mg/dL COVID-19 ([facility]) (Negative) COVID-19 Clin Com 11/19/20 Range/Units 01:01 WBC (4.8-10.8) X10*3/uL RBC (4.20-5.50) X10*6/uL Hgb (12.0-16.0) g/dl Hct (37-47) % MCV (80-98) fL MCH (27.0-33.0) pg MCHC (31.0-35.0) g/dl RDW (11.0-16.0) % Plt Count (160-400) X10*3/uL MPV (9.4-12.3) fL Immature Gran % (Auto) (0.0-0.4) % Neut % (Auto) (45-73) % Lymph % (Auto) (20-40) % [place] % (Auto) (2-11) % Eos % (Auto) (0-4) % Baso % (Auto) (0-2) % Lymph # (Auto) (1.2-4.9) X10*3/uL [place] # (Auto) (0.1-1.2) X10*3/uL Eos # (Auto) (0.0-0.4) X10*3/uL Baso # (Auto) (0.0-0.2) X10*3/uL Abs Immat Gran (auto) (0.00-0.03) X10*3/uL Absolute Neuts (auto) (2.0-8.3) X10*3/uL Absolute Nucleated RBC (0.0-0.012) X10*3/uL Nucleated RBC % (auto) (0.0-0.2) /100WBC Sodium (135-145) mmol/L Potassium (3.3-5.1) mmol/L Chloride (96-108) mmol/L Carbon Dioxide (22-29) mmol/L Anion Gap (12-20) BUN (9-16) mg/dL Creatinine (0.5-1.4) mg/dL Estim Creat Clear Calc Estimated GFR Random Glucose (60-115) mg/dL Calcium (8.4-10.2) mg/dL Total Bilirubin (0.0-1.0) mg/dL AST (5-31) U/L ALT (0-31) U/L Alkaline Phosphatase (39-117) U/L Total Protein (6.5-8.0) g/dL Albumin (3.5-5.0) g/dL Urine Color Urine Appearance Urine pH (5.0-8.0) Ur Specific [place] (1.005-1.025) Urine Protein (NEG-TRACE) MG/DL Urine Glucose (UA) (NEG) MG/DL Urine Ketones (NEG) MG/DL Urine Blood (NEG) Urine Nitrite (NEG) Ur Leukocyte Esterase (NEG) Urine RBC (0) /HPF Urine WBC (0-4) /HPF Ur Squamous Epith Cells /LPF Urine Bacteria /LPF Urine Test (NEGATIVE) Urine Opiates Screen (Not Detect) Ur Barbiturates Screen (Not Detect) Ur Phencyclidine Scrn (Not Detect) Ur Amphetamines Screen (Not Detect) U Benzodiazepines Scrn (Not Detect) Urine Cocaine Screen (Not Detect) U Marijuana (THC) Screen (Not Detect) Ethyl Alcohol mg/dL COVID-19 ([facility]) Negative (Negative) COVID-19 Clin Com See Note <Jose L Leyva NP - Last Filed: 11/18/20 20:58> Lab Results 11/18/20 11/18/20 11/18/20 Range/Units 18:56 18:56 18:56 WBC 12.7 H (4.8-10.8) X10*3/uL RBC 4.84 (4.20-5.50) X10*6/uL Hgb 13.6 (12.0-16.0) g/dl Hct 41.1 (37-47) % MCV 84.9 (80-98) fL MCH 28.1 (27.0-33.0) pg MCHC 33.1 (31.0-35.0) g/dl RDW 12.9 (11.0-16.0) % Plt Count 352 (160-400) X10*3/uL MPV 10.1 (9.4-12.3) fL Immature Gran % (Auto) 0.5 H (0.0-0.4) % Neut % (Auto) 84.0 H (45-73) % Lymph % (Auto) 10.8 L (20-40) % [place] % (Auto) 4.2 (2-11) % Eos % (Auto) 0.0 (0-4) % Baso % (Auto) 0.5 (0-2) % Lymph # (Auto) 1.4 (1.2-4.9) X10*3/uL [place] # (Auto) 0.5 (0.1-1.2) X10*3/uL Eos # (Auto) 0.0 (0.0-0.4) X10*3/uL Baso # (Auto) 0.1 (0.0-0.2) X10*3/uL Abs Immat Gran (auto) 0.06 H (0.00-0.03) X10*3/uL Absolute Neuts (auto) 10.7 H (2.0-8.3) X10*3/uL Absolute Nucleated RBC 0.000 (0.0-0.012) X10*3/uL Nucleated RBC % (auto) 0.0 (0.0-0.2) /100WBC Sodium 137 (135-145) mmol/L Potassium 3.6 (3.3-5.1) mmol/L Chloride 102 (96-108) mmol/L Carbon Dioxide 20 L (22-29) mmol/L Anion Gap 19 (12-20) BUN 16 (9-16) mg/dL Creatinine 0.93 (0.5-1.4) mg/dL Estim Creat Clear Calc 81.7 Estimated GFR > 60 Random Glucose 129 H D (60-115) mg/dL Calcium 9.9 (8.4-10.2) mg/dL Total Bilirubin 0.7 (0.0-1.0) mg/dL AST 22 D (5-31) U/L ALT 17 (0-31) U/L Alkaline Phosphatase 88 D (39-117) U/L Total Protein 8.2 H (6.5-8.0) g/dL Albumin 4.7 (3.5-5.0) g/dL Urine Color Urine Appearance Urine pH (5.0-8.0) Ur Specific [place] (1.005-1.025) Urine Protein (NEG-TRACE) MG/DL Urine Glucose (UA) (NEG) MG/DL Urine Ketones (NEG) MG/DL Urine Blood (NEG) Urine Nitrite (NEG) Ur Leukocyte Esterase (NEG) Urine RBC (0) /HPF Urine WBC (0-4) /HPF Ur Squamous Epith Cells /LPF Urine Bacteria /LPF Urine Test (NEGATIVE) Urine Opiates Screen (Not Detect) Ur Barbiturates Screen (Not Detect) Ur Phencyclidine Scrn (Not Detect) Ur Amphetamines Screen (Not Detect) U Benzodiazepines Scrn (Not Detect) Urine Cocaine Screen (Not Detect) U Marijuana (THC) Screen (Not Detect) Ethyl Alcohol < 10 mg/dL COVID-19 ([facility]) (Negative) COVID-19 Clin Com 11/18/20 11/18/20 11/18/20 Range/Units 19:52 19:52 19:53 WBC (4.8-10.8) X10*3/uL RBC (4.20-5.50) X10*6/uL Hgb (12.0-16.0) g/dl Hct (37-47) % MCV (80-98) fL MCH (27.0-33.0) pg MCHC (31.0-35.0) g/dl RDW (11.0-16.0) % Plt Count (160-400) X10*3/uL MPV (9.4-12.3) fL Immature Gran % (Auto) (0.0-0.4) % Neut % (Auto) (45-73) % Lymph % (Auto) (20-40) % [place] % (Auto) (2-11) % Eos % (Auto) (0-4) % Baso % (Auto) (0-2) % Lymph # (Auto) (1.2-4.9) X10*3/uL [place] # (Auto) (0.1-1.2) X10*3/uL Eos # (Auto) (0.0-0.4) X10*3/uL Baso # (Auto) (0.0-0.2) X10*3/uL Abs Immat Gran (auto) (0.00-0.03) X10*3/uL Absolute Neuts (auto) (2.0-8.3) X10*3/uL Absolute Nucleated RBC (0.0-0.012) X10*3/uL Nucleated RBC % (auto) (0.0-0.2) /100WBC Sodium (135-145) mmol/L Potassium (3.3-5.1) mmol/L Chloride (96-108) mmol/L Carbon Dioxide (22-29) mmol/L Anion Gap (12-20) BUN (9-16) mg/dL Creatinine (0.5-1.4) mg/dL Estim Creat Clear Calc Estimated GFR Random Glucose (60-115) mg/dL Calcium (8.4-10.2) mg/dL Total Bilirubin (0.0-1.0) mg/dL AST (5-31) U/L ALT (0-31) U/L Alkaline Phosphatase (39-117) U/L Total Protein (6.5-8.0) g/dL Albumin (3.5-5.0) g/dL Urine Color YELLOW Urine Appearance CLEAR Urine pH 8.5 H (5.0-8.0) Ur Specific [place] 1.015 (1.005-1.025) Urine Protein NEG (NEG-TRACE) MG/DL Urine Glucose (UA) NEG (NEG) MG/DL Urine Ketones 40 (NEG) MG/DL Urine Blood 3+ H (NEG) Urine Nitrite NEG (NEG) Ur Leukocyte Esterase NEG (NEG) Urine RBC 1-4 (0) /HPF Urine WBC 1-4 (0-4) /HPF Ur Squamous Epith Cells TRACE /LPF Urine Bacteria TRACE /LPF Urine Test NEGATIVE (NEGATIVE) Urine Opiates Screen POSITIVE H (Not Detect) Ur Barbiturates Screen Not Detected (Not Detect) Ur Phencyclidine Scrn Not Detected (Not Detect) Ur Amphetamines Screen Not Detected (Not Detect) U Benzodiazepines Scrn Not Detected (Not Detect) Urine Cocaine Screen Not Detected (Not Detect) U Marijuana (THC) Screen Not Detected (Not Detect) Ethyl Alcohol mg/dL COVID-19 ([facility]) (Negative) COVID-19 Clin Com 11/19/20 Range/Units 01:01 WBC (4.8-10.8) X10*3/uL RBC (4.20-5.50) X10*6/uL Hgb (12.0-16.0) g/dl Hct (37-47) % MCV (80-98) fL MCH (27.0-33.0) pg MCHC (31.0-35.0) g/dl RDW (11.0-16.0) % Plt Count (160-400) X10*3/uL MPV (9.4-12.3) fL Immature Gran % (Auto) (0.0-0.4) % Neut % (Auto) (45-73) % Lymph % (Auto) (20-40) % [place] % (Auto) (2-11) % Eos % (Auto) (0-4) % Baso % (Auto) (0-2) % Lymph # (Auto) (1.2-4.9) X10*3/uL [place] # (Auto) (0.1-1.2) X10*3/uL Eos # (Auto) (0.0-0.4) X10*3/uL Baso # (Auto) (0.0-0.2) X10*3/uL Abs Immat Gran (auto) (0.00-0.03) X10*3/uL Absolute Neuts (auto) (2.0-8.3) X10*3/uL Absolute Nucleated RBC (0.0-0.012) X10*3/uL Nucleated RBC % (auto) (0.0-0.2) /100WBC Sodium (135-145) mmol/L Potassium (3.3-5.1) mmol/L Chloride (96-108) mmol/L Carbon Dioxide (22-29) mmol/L Anion Gap (12-20) BUN (9-16) mg/dL Creatinine (0.5-1.4) mg/dL Estim Creat Clear Calc Estimated GFR Random Glucose (60-115) mg/dL Calcium (8.4-10.2) mg/dL Total Bilirubin (0.0-1.0) mg/dL AST (5-31) U/L ALT (0-31) U/L Alkaline Phosphatase (39-117) U/L Total Protein (6.5-8.0) g/dL Albumin (3.5-5.0) g/dL Urine Color Urine Appearance Urine pH (5.0-8.0) Ur Specific Davidson (1.005-1.025) Urine Protein (NEG-TRACE) MG/DL Urine Glucose (UA) (NEG) MG/DL Urine Ketones (NEG) MG/DL Urine Blood (NEG) Urine Nitrite (NEG) Ur Leukocyte Esterase (NEG) Urine RBC (0) /HPF Urine WBC (0-4) /HPF Ur Squamous Epith Cells /LPF Urine Bacteria /LPF Urine Test (NEGATIVE) Urine Opiates Screen (Not Detect) Ur Barbiturates Screen (Not Detect) Ur Phencyclidine Scrn (Not Detect) Ur Amphetamines Screen (Not Detect) U Benzodiazepines Scrn (Not Detect) Urine Cocaine Screen (Not Detect) U Marijuana (THC) Screen (Not Detect) Ethyl Alcohol mg/dL COVID-19 ([facility]) Negative (Negative) COVID-19 Clin Com See Note <Kevin Zamora MD - Last Filed: 11/19/20 04:18> Discharge Plan Discharge Prescriptions: No Action clonidine HCl 0.1 mg Tablet 0.1 mg PO TID 30 Days Qty: 90 RF: 0 clonazepam 0.5 mg Tablet 0.5 mg PO BID PRN (Reason: Anxiety) RF: 0 <Jose L Leyva NP - Last Filed: 11/18/20 20:58>
[2020-11-18] MEDS: LORazepam 1 MG TABLET 2 MG PO (16:43)
[2020-11-18] MEDS: OLANZapine 10 MG TABLET PO (18:08)
[2020-11-18] MEDS: diphenhydrAMINE HCL 50 MG/ML VIAL IM (18:30)
--- NOTE | 2020-11-18 18:36 | PC.NURSE ---
Pt agreeable to Im injection of Benadrly, please help me .
[2020-11-18 19:00] LABS: MANUAL DIFF FLAG NO
[2020-11-18 19:02] LABS: Basophils Absolute Auto 0.1 X10*3/uL (0.0-0.2); Basophils Percent Auto 0.5 % (0-2); Hematocrit 41.1 % (37-47); Hemoglobin 13.6 g/dl (12.0-16.0); Imm Gran Abs Auto 0.06 X10*3/uL (0.00-0.03); Imm Gran Pct Auto 0.5 % (0.0-0.4); Lymphocytes Absolute Auto 1.4 X10*3/uL (1.2-4.9); Lymphocytes Percent Auto 10.8 % (20-40); Mean Corpuscular HGB Conc 33.1 g/dl (31.0-35.0); Mean Corpuscular Hemoglobin 28.1 pg (27.0-33.0); Mean Corpuscular Volume 84.9 fL (80-98); Mean Platelet Volume 10.1 fL (9.4-12.3); Monocytes Absolute Auto 0.5 X10*3/uL (0.1-1.2); Monocytes Percent Auto 4.2 % (2-11); Neutrophils Absolute Auto 10.7 X10*3/uL (2.0-8.3); Platelet Count 352 X10*3/uL (160-400); Red Blood Count 4.84 X10*6/uL (4.20-5.50); Red Cell Distribution Width 12.9 % (11.0-16.0); White Blood Count 12.7 X10*3/uL (4.8-10.8)
[2020-11-18 19:26] LABS: Ethanol < 10 mg/dL
[2020-11-18 19:29] LABS: Alanine Aminotransferase 17 U/L (0-31); Albumin Level 4.7 g/dL (3.5-5.0); Alkaline Phosphatase 88 U/L (39-117); Anion Gap 19 (12-20); Aspartate Amino Transferase 22 U/L (5-31); Bilirubin Total 0.7 mg/dL (0.0-1.0); Blood Urea Nitrogen 16 mg/dL (9-16); Calcium 9.9 mg/dL (8.4-10.2); Carbon Dioxide 20 mmol/L (22-29); Chloride 102 mmol/L (96-108); Creatinine Clr Calc Pharmacy 81.7; Estimated Glomerular Filt Rate > 60; Glucose Random 129 mg/dL (60-115); Potassium 3.6 mmol/L (3.3-5.1); Sodium 137 mmol/L (135-145); Total Protein 8.2 g/dL (6.5-8.0)
[2020-11-18 19:31] VITALS: BP 144/109; PULSE 114; RESP 20; O2SAT 97
[2020-11-18] MEDS: Haloperidol Lactate 5 MG/ML VIAL IM (19:51)
--- NOTE | 2020-11-18 19:55 | PC.NURSE ---
Patient just got transferred from main ED, moaning in disruptive, per report patient has history of medication seeking behavior, patient requested for IM shot to calm down and reported Haldol worked in the past, provider notified/ordered Haldol 5 mg IM/administered as per patient's request/compliant. will continue to monitor.
[2020-11-18 20:03] LABS: Glucose Urine UA NEG (NEG); Leukocyte Esterase Urine NEG (NEG); Nitrite Urine NEG (NEG); PH 8.5 (5.0-8.0); Specific Gravity - Urine 1.015 (1.005-1.025); Urine Blood 3+ (NEG); Urine Ketones 40 MG/DL (NEG); Urine Protein NEG (NEG-TRACE)
[2020-11-18 20:14] LABS: UPreg QC Valid YES; Urine Pregnancy NEGATIVE (NEGATIVE)
[2020-11-18 20:21] LABS: Appearance Urine CLEAR; Color Urine YELLOW
[2020-11-18 20:29] LABS: Amphetamine Screen Urine Not Detected (Not Detect); Barbiturates, Urine Not Detected (Not Detect); Benzodiazepines Screen Urine Not Detected (Not Detect); Cannabinoid Screen Urine Not Detected (Not Detect); Cocaine Screen Urine Not Detected (Not Detect); Opiate Screen Urine POSITIVE (Not Detect); Phencyclidine Screen Urine Not Detected (Not Detect)
[2020-11-18 20:32] LABS: Bacteria Urine TRACE /LPF; Squamous Epithelial Cell Urine TRACE /LPF
[2020-11-19 00:46] VITALS: BP 149/111; PULSE 124; RESP 18; O2SAT 98
[2020-11-19 01:17] VITALS: BP 149/11; PULSE 124
[2020-11-19] MEDS: diphenhydrAMINE HCL 25 MG TABLET 50 MG PO (01:17)
[2020-11-19] MEDS: cloNIDine HCL 0.1 MG TABLET PO ×2 (01:17→04:03)
--- NOTE | 2020-11-19 01:21 | PC.NURSE ---
Patient continues moaning, vomited x 2, asking for more medication, BP 149/111 and HR 124. provider notified, zofran 4 mg followed by Clonidine 0.1 mg and Benadryl 50 mg. Administered as ordered, pending effect, will continue to monitor.
[2020-11-19 01:26] LABS: COVID-19 Test Negative (Negative)
[2020-11-19 04:02] VITALS: BP 149/110; PULSE 107; RESP 22; O2SAT 100
[2020-11-19 04:03] VITALS: BP 149/110; PULSE 107
[2020-11-19] MEDS: clonazePAM 0.5 MG TABLET PO (04:03)
--- NOTE | 2020-11-19 04:11 | PC.NURSE ---
Patient just got seen by [facility], disposition discharge in the morning, Ex [facility] will come pick her up per N, patient continues moaning, BP 149/110, HR 107, provider notified/ordered clonidine 0.1 mg and Klonopin 0.5 mg, pending effect. currently in her room, quiet, will continue to monitor.
--- NOTE | 2020-11-19 07:14 | PC.NURSE ---
Report received from YOBANY Chopra. Pt resting, resp unlabored.
[2020-11-19 08:00] VITALS: BP 147/99; PULSE 104; RESP 20; TEMP 36.6; O2SAT 99
--- NOTE | 2020-11-19 08:01 | PC.NURSE ---
Pt awake, alert. Affect anxious but denies SI, states she is safe to be discharged. Pt's ex- called, will pick pt up. Dr Pascual aware of current vitals, no further orders at this time. Pt discharged as ordered.
== END 2020-11-19 08:05 | disposition home or self-care (01) ==
PROVIDERS: Nurse Practitioner Family; Nurse Practitioner Primary Care; Emergency Provider Emergency Medicine; PCP Internal Medicine
DX: F41.0 Panic disorder [episodic paroxysmal anxiety] (principal); R45.1 Restlessness and agitation; F11.90 Opioid use, unspecified, uncomplicated; Z20.822 Contact with and (suspected) exposure to COVID-19; F32.9 Major depressive disorder, single episode, unspecified; F41.9 Anxiety disorder, unspecified; Z79.899 Other long term (current) drug therapy
CPT/HCPCS: 36415; 80053; 80307; 80320; 81001; 81025; 85025; 87635; 96372; 99284; J1200; Q0163

== ENCOUNTER 2022-05-13 00:56 | Emergency (ER) | payer OTHER, SELFPAY ==
[2022-05-13 01:24] VITALS: BP 106/64; PULSE 108; RESP 20; TEMP 36.7; O2SAT 98; BMI 34.7
--- NOTE | 2022-05-13 03:20 | ED.GENADULT ---
HPI - General Adult General Chief complaint: General Medical Stated complaint: med refill Time Seen by Provider: 05/13/22 01:05 Source: patient Mode of arrival: ambulatory Limitations: no limitations History of Present Illness HPI narrative: Patient with history of substance abuse anxiety depression Dose of methadone yesterday as she cannot find a cart comes here to get her methadone dose patient takes 120 mg for methadone patient came to the ER at 01:00 Related Data Home Medications Medication Instructions Recorded Confirmed clonazepam 0.5 mg tablet 0.5 mg PO BID PRN Anxiety 11/18/20 11/18/20 Previous Rx's Medication Instructions Recorded clonidine HCl 0.1 mg tablet 0.1 mg PO TID 30 days #90 tabs 06/26/20 Allergies Allergy/AdvReac Type Severity Reaction Status Date / Time methocarbamol [From ROBAXIN] Allergy Intermediate NAUSEA & Verified 08/15/20 18:13 VOMITING metoclopramide [From REGLAN] Allergy Intermediate PANIC Verified 08/15/20 18:13 ATTACK sumatriptan [From IMITREX] Allergy Intermediate NAUSEA & Verified 08/15/20 18:13 VOMITING hydrocodone [HYDROCODONE] Allergy Unknown UNKNOWN Verified 08/15/20 18:13 tramadol [TRAMADOL] Allergy Unknown UNKNOWN Verified 08/15/20 18:13 Review of Systems Review of Systems: Yes all other systems are reviewed and are negative PMFSH Past Medical History Medical History Anxiety Depression Migraines Panic attack Social History Social History Household Members: Children Housing: Apartment Alcohol intake: never Advance Directives: No Advance Directives Information Provided: No service: No Sexual orientation: Straight/Heterosexual Physical Exam ED Vital Signs: Vital Signs - 24 hr 05/13/22 01:24 05/13/22 03:41 Temperature 98.0 F 97.7 F Pulse Rate 108 H 59 Respiratory Rate 20 18 Blood Pressure 106/64 91/52 L Pulse Oximetry 98 99 Oxygen Delivery Method Room Air Room Air BMI result Body Mass Index 34.7 Appearance: Alert. Oriented X3. No acute distress. ENT: Pharynx normal. Oral Mucosa moist Neck: Normal inspection. Neck supple. CVS: Normal heart rate and rhythm. Pulses normal. Respiratory: No respiratory distress. Equal air entry bilateral, no wheezing/rales/rhonchi Skin: Skin warm and dry. Normal skin color. Normal skin turgor. Extremities: No lower extremity edema. Neuro: Oriented X 3. Medical Decision Making MDM Narrative Medical decision making narrative: Patient with history of substance abuse on methadone came at midnight to get the methadone dose which she can get in the morning. States that she feels that she has been withdrawing by nausea symptoms and uneasiness will give a dose of Ativan p.o. and Zofran for symptoms Discharge Plan Discharge Clinical Impression: Medication refill Patient Disposition: Home, Self-Care Instructions: Medicine Refill (ED) Additional Instructions: Follow with the methadone clinic and take your dosage of methadone as prescribed Prescriptions: No Action clonidine HCl 0.1 mg Tablet 0.1 mg PO TID 30 Days Qty: 90 0RF Protocol: Hold for SBP< HOLD for SBP < : 90 clonazepam 0.5 mg Tablet 0.5 mg PO BID PRN (Reason: Anxiety) Stand Alone Forms: Work/School Release Interventions: ED Discharge Assessment Last Done: 05/13/22 04:19 Discharge Date/Time: 05/13/22 04:21
[2022-05-13 03:41] VITALS: BP 91/52; PULSE 59; RESP 18; TEMP 36.5; O2SAT 99
[2022-05-13] MEDS: Ondansetron ODT 4 MG TAB.RAPDIS TRANSLINGU (04:17)
[2022-05-13] MEDS: LORazepam 1 MG TABLET PO (04:17)
== END 2022-05-13 04:21 | disposition home or self-care (01) ==
PROVIDERS: Emergency Provider Internal Medicine
DX: Z76.0 Encounter for issue of repeat prescription (principal); Z79.899 Other long term (current) drug therapy
CPT/HCPCS: 99283

== ENCOUNTER 2022-08-31 12:39 | Emergency (ER) | payer OTHER, SELFPAY ==
--- NOTE | ~2022-08-31 | XR_ITS ---
EXAMINATION: XR CHEST CLINICAL INFORMATION: Chest pain COMPARISON: None TECHNIQUE: 2 views of the chest were obtained. FINDINGS: No significant abnormality is noted involving the heart, lungs, mediastinum, bony thorax or soft tissues. XR/XR chest 2V IMPRESSION: Unremarkable chest exam
[2022-08-31 14:07] VITALS: BP 93/55; PULSE 93; RESP 17; TEMP 36.8; O2SAT 99; BMI 30.2
--- NOTE | 2022-08-31 14:07 | ED.URI ---
HPI - URI/Sore Throat General Chief Complaint: Upper Respiratory Symptoms <Deb Bender NP - Last Filed: 08/31/22 14:10> Stated Complaint: covid symptoms, exposed to covid <Deb Bender NP - Last Filed: 08/31/22 14:10> Time Seen by Provider: 08/31/22 15:44 <Deb Bender NP - Last Filed: 08/31/22 14:10> Source: patient <CR Buchanan - Last Filed: 08/31/22 17:42> Mode of arrival: ambulatory <CR Buchanan - Last Filed: 08/31/22 17:42> Limitations: no limitations <CR Buchanan - Last Filed: 08/31/22 17:42> History of Present Illness HPI Narrative: Patient is a 47 year old assigned female at with a history of bipolar disorder and anxiety presenting to the emergency department today with body aches. Patient states that since last night she began to have body aches. Patient denies any dizziness, lightheadedness, abdominal pain, nausea, vomiting, fever, chills, blurry vision, double vision, loss of vision, chest pain, difficulty breathing, shortness of breath, back pain, night sweats, pain with urination, increased urinary frequency, increased urinary urgency, blood in her urine or stool, syncope or a near syncopal episode, recent trauma or falls, bowel incontinence, bladder incontinence, bowel retention, bladder retention, or any other complaints at this time. <CR Buchanan - Last Filed: 08/31/22 17:42> Severity: mild <CR Buchanan - Last Filed: 08/31/22 17:42> Pain scale (0-10): 3 <CR Buchanan - Last Filed: 08/31/22 17:42> Exacerbating factors: nothing <RC Buchanan - Last Filed: 08/31/22 17:42> Relieving factors: nothing <CR Buchanan Last Filed: 08/31/22 17:42> Associated symptoms: myalgias <CR Buchanan Last Filed: 08/31/22 17:42> Treatments prior to arrival: none <CR Buchanan Last Filed: 08/31/22 17:42> Related Data Home Medications: Home Medications Medication Instructions Recorded Confirmed clonazepam 0.5 mg tablet 0.5 mg PO BID PRN Anxiety 11/18/20 11/18/20 Previous Rx's Medication Instructions Recorded clonidine HCl 0.1 mg tablet 0.1 mg PO TID 30 days #90 tabs 06/26/20 <Deb Bender NP - Last Filed: 08/31/22 14:10> Allergies/Adverse Reactions: Allergies Allergy/AdvReac Type Severity Reaction Status Date / Time methocarbamol [From ROBAXIN] Allergy Intermediate NAUSEA & Verified 08/15/20 18:13 VOMITING metoclopramide [From REGLAN] Allergy Intermediate PANIC Verified 08/15/20 18:13 ATTACK sumatriptan [From IMITREX] Allergy Intermediate NAUSEA & Verified 08/15/20 18:13 VOMITING hydrocodone [HYDROCODONE] Allergy Unknown UNKNOWN Verified 08/15/20 18:13 tramadol [TRAMADOL] Allergy Unknown UNKNOWN Verified 08/15/20 18:13 <Deb Bender NP - Last Filed: 08/31/22 14:10> Review of Systems Constitutional: Constitutional: Reports no additional constitutional complaints, Reports body ache(s), Denies chills, Denies fever(s) and Denies night sweats <CR Buchanan - Last Filed: 08/31/22 17:42> Eyes: Eyes: Reports no additional eye complaints, Denies blurry vision, Denies change in vision, Denies diplopia, Denies eye discharge, Denies loss of vision and Denies eye pain <CR Buchanan Last Filed: 08/31/22 17:42> ENT: Denies dizziness <CR Buchanan Last Filed: 08/31/22 17:42> Cardiovascular: Cardiovascular: Reports no additional cardiovascular complaints, Denies chest pain, Denies lightheadedness, Denies Loss of Consciousness and Denies dyspnea <CR Buchanan Last Filed: 08/31/22 17:42> Respiratory: Respiratory: Reports no additional respiratory complaints and Denies dyspnea <CR Buchanan Last Filed: 08/31/22 17:42> Gastrointestinal: Gastrointestinal: Reports no additional gastrointestinal complaints, Denies abdominal pain, Denies melena, Denies hematochezia, Denies change in bowel habits and Denies change in stool character <CR Buchanan - Last Filed: 08/31/22 17:42> Genitourinary: Genitourinary: Denies hematuria, Denies urinary frequency, Denies dysuria, Denies urinary incontinence, Denies urinary hesitancy and Denies urinary urgency <CR Buchanan - Last Filed: 08/31/22 17:42> Musculoskeletal: Musculoskeletal: Reports no additional musculoskeletal complaints, Denies numbness and Denies tingling <CR Buchanan - Last Filed: 08/31/22 17:42> Neurologic: Denies dizziness, Denies loss of vision, Denies numbness and Denies tingling <CR Buchanan - Last Filed: 08/31/22 17:42> Psychiatric: Psychiatric: Reports no additional psychiatric complaints <CR Buchanan - Last Filed: 08/31/22 17:42> Endocrine: Endocrine: Reports no additional endocrine complaints <CR Buchanan - Last Filed: 08/31/22 17:42> Hematologic/Lymphatic: Hematologic/Lymphatic: Reports no additional hematologic/lymphatic complaints <CR Buchanan - Last Filed: 08/31/22 17:42> Allergic/Immunologic: Allergic/Immunologic: Reports no additional allergic/immunologic complaints <CR Buchanan - Last Filed: 08/31/22 17:42> PMFSH Past Medical History Attestation statement: The following information was validated with the patient. <CR Buchanan - Last Filed: 08/31/22 17:42> Source: old records reviewed and nursing notes reviewed <CR Buchanan - Last Filed: 08/31/22 17:42> Medical History: Medical History Anxiety Depression Migraines Panic attack <Deb Bender NP - Last Filed: 08/31/22 14:10> Social History Social History: Social History Household Members: Children Housing: Apartment Alcohol intake: never Advance Directives: No service: No Sexual orientation: Straight/Heterosexual <Deb Bender NP - Last Filed: 08/31/22 14:10> Physical Exam Vital Signs: Vital Signs: Last Vital Signs Temp 98.2 F 08/31/22 14:07 Pulse 93 08/31/22 14:07 Resp 17 08/31/22 14:07 BP 93/55 L 08/31/22 14:07 Pulse Ox 99 08/31/22 14:07 O2 Del Method 08/31/22 14:07 BMI result Body Mass Index 30.2 <Deb Bender NP - Last Filed: 08/31/22 14:10> Vital Signs: Last Vital Signs Temp 98.2 F 08/31/22 14:07 Pulse 93 08/31/22 14:07 Resp 17 08/31/22 14:07 BP 93/55 L 08/31/22 14:07 Pulse Ox 99 08/31/22 14:07 O2 Del Method 08/31/22 14:07 BMI result Body Mass Index 30.2 <CR Buchanan - Last Filed: 08/31/22 17:42> Const: General: cooperative, no acute distress, alert and awake <CR Buchanan - Last Filed: 08/31/22 17:42> Nutritional Appearance: well nourished <CR Buchanan - Last Filed: 08/31/22 17:42> Orientation/consciousness: patient oriented x3 <CR Buchanan - Last Filed: 08/31/22 17:42> Limitations: no limitations <CR Buchanan - Last Filed: 08/31/22 17:42> HEENT: Head: Yes normal to inspection and Yes atraumatic <CR Buchanan - Last Filed: 08/31/22 17:42> Ears: hearing grossly normal bilaterally and external ears normal <CR Buchanan - Last Filed: 08/31/22 17:42> General nose exam: Normal external nose present, no nasal discharge noted and no epistaxis <CR Buchanan - Last Filed: 08/31/22 17:42> Face and sinus: Yes normal facial exam, No abrasion and No laceration <CR Buchanan - Last Filed: 08/31/22 17:42> Mouth: Normal oral and palatal mucosa present, no drooling and no muffled voice <Susanne Garcias PA - Last Filed: 08/31/22 17:42> Eyes: General: appearance normal, both eyes and all related structures <Susanne Garcias PA - Last Filed: 08/31/22 17:42> Periorbital: periorbital findings normal <Susanne Garcias PA - Last Filed: 08/31/22 17:42> Eyelids: Yes eyelids normal <Susanne Garcias PA - Last Filed: 08/31/22 17:42> Conjunctivae: conjunctivae normal <Susanne Garcias PA - Last Filed: 08/31/22 17:42> Pupils: Equal, round and reactive pupils present <Susanne Garcias PA - Last Filed: 08/31/22 17:42> EOM: EOMs intact bilaterally <Susanne Blountmarcel PA - Last Filed: 08/31/22 17:42> Neck: Neck: Yes normal visual inspection, Yes full ROM and Yes no lymphadenopathy <Susanne Blountmarcel PA - Last Filed: 08/31/22 17:42> Chest: Chest palpation & inspection: normal inspection of the chest <Susanne Blountmarcel PA - Last Filed: 08/31/22 17:42> Resp: Effort & Inspection: normal respiratory effort and able to speak in complete sentences <Susanne Blountmarcel PA - Last Filed: 08/31/22 17:42> Auscultation: clear to auscultation bilaterally <Susanne Blountmarcel PA - Last Filed: 08/31/22 17:42> Cardio: Rate: regular rate <Susanne Blountmarcel PA - Last Filed: 08/31/22 17:42> Rhythm: regular rhythm <Susanne Blountmarcel PA - Last Filed: 08/31/22 17:42> GI: Inspection: Yes normal to inspection <Susanne Blountmarcel PA - Last Filed: 08/31/22 17:42> Neuro: General: patient oriented x3 and moves all extremities <Susanne Blountmarcel PA - Last Filed: 08/31/22 17:42> Cranial nerves: Yes Equal, round and reactive pupils present <Susanne Dieter PA - Last Filed: 08/31/22 17:42> Cognition (Neuro): normal cognition <Susanne GarciasCR - Last Filed: 08/31/22 17:42> Motor exam (neuro): 5/5 motor strength present throughout <Susanne GarciasCR - Last Filed: 08/31/22 17:42> Sensory Exam: Normal double simultaneous stimulation for sensation <Susanne BlountCR rod - Last Filed: 08/31/22 17:42> Coordination: [id number] test normal <Susanne BlountCR rod - Last Filed: 08/31/22 17:42> Extrem: General: Yes normal to inspection, Yes full ROM and Yes capillary refill normal <Susanne BlountCR rod - Last Filed: 08/31/22 17:42> Psych: Appearance: grossly normal <Susanne BlountCR rod - Last Filed: 08/31/22 17:42> Mental Status: mental status grossly normal <Susanne GarciasCR rod - Last Filed: 08/31/22 17:42> Affect: normal affect <Susannemaximiliano BlountCR rod - Last Filed: 08/31/22 17:42> Attitude: cooperative <Susanne GarciasCR rod - Last Filed: 08/31/22 17:42> Thought process: Normal thought process present <Susanne GarciasCR rod - Last Filed: 08/31/22 17:42> Thought content: Normal thought content present <Susanne BlountCR rod - Last Filed: 08/31/22 17:42> Insight: Good insight present (Psych) <CR Buchanan - Last Filed: 08/31/22 17:42> Course Course Course Narrative: This is a rapid medical exam. Deferred HPI, ROS, PE to primary provider. 47 yo female with history of bipolar disorder here with sore throat, body aches, chest discomfort with breathing since last night. Will check CXR, EKG, covid/flu/rsv testing. VSS <Deb Bender NP - Last Filed: 08/31/22 14:10> Medical Decision Making Medical Decision Making MDM Narrative: Patient is a 47 year old assigned female at with a history of anxiety presenting to the emergency department today with body aches. Patient's physical exam was unremarkable. Patient's COVID-19 test is positive. I explained my physical exam findings as well as all test results to the patient. I answered all questions asked by the patient. I stressed the importance of the patient taking her medication as prescribed. I stressed the importance of the patient following up with her primary care provider. I stressed the importance of the patient returning to the emergency department immediately if her symptoms were to worsen or if she were to develop any dizziness, shortness of breath, difficulty breathing, chest pain, blurry vision, loss of vision, nausea, vomiting, abdominal pain, fever, chills, back pain, or any other complaints. Patient verbalized agreement and understanding with this treatment plan and discharge. <CR Buchanan - Last Filed: 08/31/22 17:42> Differential Diagnosis Differential Diagnoses: The differential diagnosis associated with the presentation includes <CR Buchanan - Last Filed: 08/31/22 17:42> COVID, RSV, Influenza <CR Buchanan - Last Filed: 08/31/22 17:42> Lab Data MDM Lab Attestation statement: I reviewed the patient's lab results. <CR Buchanan - Last Filed: 08/31/22 17:42> Labs: Lab Results 08/31/22 Range/Units 14:20 Influenza Type A (PCR) NEGATIVE (Negative) Influenza Type B (PCR) NEGATIVE (Negative) RSV RNA Qual (PCR) NEGATIVE (Negative) SARS-CoV-2 RNA (RT-PCR) POSITIVE A (Negative) <Deb Bender NP - Last Filed: 08/31/22 14:10> Lab Results 08/31/22 Range/Units 14:20 Influenza Type A (PCR) NEGATIVE (Negative) Influenza Type B (PCR) NEGATIVE (Negative) RSV RNA Qual (PCR) NEGATIVE (Negative) SARS-CoV-2 RNA (RT-PCR) POSITIVE A (Negative) <CR Buchanan - Last Filed: 08/31/22 17:42> Discharge Plan Discharge Clinical Impression: COVID-19 <Deb Bender NP - Last Filed: 08/31/22 14:10> Patient Disposition: Home, Self-Care <Deb Bender NP - Last Filed: 08/31/22 14:10> Instructions: COVID-19 (Coronavirus Disease 2019) (ED) <Deb Bender NP - Last Filed: 08/31/22 14:10> Additional Instructions: Follow up with your primary care provider. Return to the emergency department immediately if your symptoms worsen or if you develop any dizziness, shortness of breath, difficulty breathing, chest pain, blurry vision, loss of vision, nausea, vomiting, abdominal pain, fever, chills, back pain, or any other complaints. <Deb Bender NP - Last Filed: 08/31/22 14:10> Prescriptions: No Action clonidine HCl 0.1 mg Tablet 0.1 mg PO TID 30 Days Qty: 90 0RF Protocol: Hold for SBP< HOLD for SBP < : 90 clonazepam 0.5 mg Tablet 0.5 mg PO BID PRN (Reason: Anxiety) <Deb Bender NP - Last Filed: 08/31/22 14:10> Referrals: [facility] [[place] Group] (Call to establish and follow up with a primary care provider. If you already have a primary care provider, please follow up with them. ) [facility] [place] [Provider Group] (Call to establish and follow up with a primary care provider. If you already have a primary care provider, please follow up with them. ) [facility] [Provider Group] (Call to establish and follow up with a primary care provider. If you already have a primary care provider, please follow up with them. ) <Deb Bender NP - Last Filed: 08/31/22 14:10> Stand Alone Forms: Work/School Release <Deb Bender NP - Last Filed: 08/31/22 14:10> Interventions: ED Discharge Assessment Last Done: 08/31/22 16:01 <Deb Bender NP - Last Filed: 08/31/22 14:10> Discharge Date/Time: 08/31/22 16:02 <Deb Bender NP - Last Filed: 08/31/22 14:10> Print Language: Indonesian <Deb Bender NP - Last Filed: 08/31/22 14:10>
--- NOTE | 2022-08-31 14:08 | ECG_ITS ---
Test Reason : cp Blood Pressure : / mmHG Vent. Rate : 081 BPM Atrial Rate : 081 BPM P-R Int : 134 ms QRS Dur : 074 ms QT Int : 420 ms P-R-T Axes : 052 -05 006 degrees QTc Int : 487 ms Normal sinus rhythm Prolonged QT Abnormal ECG When compared with ECG of 18-OCT-2020 20:19, No significant change was found Referred By: Deb Bender Electronically Signed By:DAYO GIORDANO
[2022-08-31 15:37] LABS: Influenza A PCR NEGATIVE (Negative); Influenza B PCR NEGATIVE (Negative); Resp Syncy Virus RNA Qual PCR NEGATIVE (Negative); SARS COV2 PCR INHOUSE POSITIVE (Negative)
== END 2022-08-31 16:02 | disposition home or self-care (01) ==
PROVIDERS: Nurse Practitioner Family; Emergency Provider Student in an Organized Health Care Education/Training Program
DX: U07.1 COVID-19 (principal); M79.10 Myalgia, unspecified site
CPT/HCPCS: 0241U; 71046; 93005; 99283

== ENCOUNTER 2025-01-16 13:01 | Observation (INO) | payer OTHER, SELFPAY ==
[2025-01-16] VITALS (7 sets, daily range): BP systolic 104–152; BP diastolic 72–94; PULSE 86–204; RESP 14–25; TEMP 36.6; O2SAT 96–100; BMI 27.6
--- NOTE | 2025-01-16 08:38 | ECG_ITS ---
Test Reason : arrythmia change Blood Pressure : */* mmHG Vent. Rate : 112 BPM Atrial Rate : 112 BPM P-R Int : 138 ms QRS Dur : 78 ms QT Int : 338 ms P-R-T Axes : 64 18 44 degrees QTcB Int : 461 ms Sinus tachycardia Otherwise normal ECG When compared with ECG of 16-Jan-2025 13:03, Vent. rate has decreased by [address] less depressed in Inferior leads ST no longer depressed in Anterolateral leads Nonspecific T wave abnormality no longer evident in Inferior leads T wave inversion no longer evident in Lateral leads Referred By: Emmanuel Pelaez Electronically Signed By: Ruben Bergman
--- NOTE | 2025-01-16 13:14 | ECG_ITS ---
Test Reason : tachycardia Blood Pressure : */* mmHG Vent. Rate : 196 BPM Atrial Rate : * BPM P-R Int : * ms QRS Dur : 76 ms QT Int : 232 ms P-R-T Axes : * 48 -11 degrees QTcB Int : 419 ms Supraventricular tachycardia Marked ST abnormality, possible inferior subendocardial injury Abnormal ECG No previous ECGs available Referred By: Emmanuel Pelaez Electronically Signed By: Ruben Bergman
[2025-01-16] MEDS: 0.9 % Sodium Chloride 1,000 ML 999 ML IV (13:21)
[2025-01-16] MEDS: Metoprolol Tartrate 25 MG TABLET PO (13:23)
[2025-01-16] MEDS: Midazolam HCl 2 MG/2 ML VIAL IVPUSH (13:30)
[2025-01-16 13:42] LABS: MANUAL DIFF FLAG NO
[2025-01-16 13:44] LABS: Basophils Absolute Auto 0.1 X10*3/uL (0.0-0.2); Basophils Percent Auto 0.7 % (0-2); Eosinophils Absolute Auto 0.1 X10*3/uL (0.0-0.4); Eosinophils Percent Auto 1.3 % (0-4); Hematocrit 33.3 % (37.0-47.0); Hemoglobin 11.3 g/dl (12.0-16.0); Imm Gran Abs Auto 0.05 X10*3/uL (0.00-0.03); Imm Gran Pct Auto 0.5 % (0.0-0.4); Lymphocytes Percent Auto 19.3 % (20-40); Mean Corpuscular HGB Conc 33.9 g/dl (31.0-35.0); Mean Corpuscular Hemoglobin 29.1 pg (27.0-33.0); Mean Corpuscular Volume 85.8 fL (80.0-98.0); Mean Platelet Volume 9.2 fL (9.4-12.3); Monocytes Absolute Auto 0.8 X10*3/uL (0.1-1.2); Monocytes Percent Auto 8.3 % (2-11); Neutrophils Absolute Auto 7.1 x10*3/uL (2.0-8.3); Neutrophils Percent Auto 69.9 % (45-73); Platelet Count 263 X10*3/uL (160-400); Red Blood Count 3.88 X10*6/uL (4.20-5.50); Red Cell Distribution Width 13.7 % (11.0-16.0); White Blood Count 10.2 X10*3/uL (4.8-10.8)
[2025-01-16 13:57] LABS: Alanine Aminotransferase 18 U/L (0-31); Albumin Level 3.9 g/dL (3.5-5.0); Alkaline Phosphatase 53 U/L (39-117); Anion Gap 13 (12-20); Aspartate Amino Transferase 23 U/L (5-31); Bilirubin Total 0.2 mg/dL (0.0-1.0); Blood Urea Nitrogen 14 mg/dL (9-16); Calcium 8.7 mg/dL (8.4-10.2); Carbon Dioxide 23 mmol/L (22-29); Chloride 110 mmol/L (96-108); Creatinine Clr Calc Pharmacy 90.4; Estimated Glomerular Filt Rate > 60; Glucose Random 81 mg/dL (60-115); Potassium 3.7 mmol/L (3.3-5.1); Sodium 142 mmol/L (135-145); Total Protein 6.6 g/dL (6.5-8.0)
[2025-01-16 13:58] LABS: Ethanol < 10 mg/dL; Magnesium 2.1 mg/dL (1.6-2.6); Salicylate < 5.0 mg/dL (15-30)
[2025-01-16 14:08] LABS: Acetaminophen LAB < 3 mcg/mL (<30)
--- NOTE | 2025-01-16 14:16 | ED.GENADULT ---
HPI - General Adult General Chief complaint: Arrhythmia/Palpitations Stated complaint: PANIC ATTACK >24HRS,HR 205 PER EMS Time Seen by Provider: 01/16/25 13:12 Source: patient Mode of arrival: ambulatory Limitations: no limitations History of Present Illness HPI narrative: This is a 49-year-old woman with a past medical history of anxiety/depression, migraine, substance use on methadone who is brought in by EMS for evaluation of palpitations. Patient reports that she felt like she was having a panic attack and states that she had the sensation that her heart was racing. She states no chest pain or dyspnea. She states no trauma. She states no fevers. She states no similar episodes in the past. She states no recent surgery. She states no GI or symptoms. She states that she did start on methadone this morning. Related Data Home Medications ?Medication ?Instructions ?Recorded ?Confirmed alprazolam 2 mg tablet 2 mg PO DAILY PRN Anxiety 01/16/25 citalopram 20 mg tablet 20 mg PO DAILY 01/16/25 dextroamphetamine-amphetamine 20 1 tab PO BID 01/16/25 mg tablet lorazepam 1 mg tablet PO 01/16/25 Allergies Allergy/AdvReac Type Severity Reaction Status Date / Time methocarbamol [From ROBAXIN] Allergy Intermediate NAUSEA & Verified 01/16/25 13:19 VOMITING metoclopramide [From REGLAN] Allergy Intermediate PANIC Verified 01/16/25 13:19 ATTACK sumatriptan [From IMITREX] Allergy Intermediate NAUSEA & Verified 01/16/25 13:19 VOMITING hydrocodone [HYDROCODONE] Allergy Unknown UNKNOWN Verified 01/16/25 13:19 tramadol [TRAMADOL] Allergy Unknown UNKNOWN Verified 01/16/25 13:19 Review of Systems Review of Systems: ROS as per HPI PMF Past Medical History Medical History (Updated 01/16/25 @ 14:43 by Emmanuel Pelaez MD) Panic attack Depression Anxiety Migraines Social History Social History (System 07/06/23 @ 12:49 by Maria Ines Flores) Household Members: Children Housing: Apartment Alcohol intake: never Comment: administered for opiate withdrawal, pt reports med did not help at all Advance Directives: No Advance Directives Information Provided: Yes Do you have a plan to hurt others: No Plan service: No Sexual orientation: Straight/Heterosexual Physical Exam ED Vital Signs: Vital Signs - 24 hr 01/16/25 13:17 01/16/25 13:23 01/16/25 13:25 Pulse Rate 200 H 120 H 120 H Respiratory Rate 25 H 20 Blood Pressure 146/76 H 120/73 120/73 Pulse Oximetry 97 97 Oxygen Delivery Method Room Air Room Air BMI result Body Mass Index 27.6 Gen: NAD, AOx3 HEENT: NCAT, EOMI, normal conjunctiva CV: Tachycardic rate, regular rhythm, no murmurs appreciated Pulm: CTAB, no increased work of breathing GI: Soft, NTND, no rebound, guarding or rigidity Neuro: Grossly non focal Medications Administered Discontinued Medications Generic Name Dose Route Start Last Admin Trade Name Freq PRN Reason Stop Dose Admin Sodium Chloride 1,000 mls @ 999 mls/hr 01/16/25 13:15 01/16/25 13:21 Ns IV 01/16/25 14:15 999 mls/hr .Q1H1M NICOLAS Administration Metoprolol Tartrate 25 mg 01/16/25 13:12 01/16/25 13:23 Metoprolol Tartrate 25 Mg Tablet PO 01/16/25 13:13 25 mg ONCE ONE Administration Protocol Midazolam HCl 2 mg 01/16/25 13:28 01/16/25 13:30 Midazolam Hcl 2 Mg/2 Ml Vial IVPUSH 01/16/25 13:29 2 mg ONCE ONE Administration Medical Decision Making Medical Decision Making [facility] Narrative: Differential diagnosis includes, but is not limited to SVT, electrolyte derangement, hypovolemia, anxiety. Patient is afebrile and hemodynamically stable on room air albeit tachycardic on arrival. Attempted carotid artery massage with no resolution of SVT. The patient subsequently responds well to modified Valsalva maneuver with resolution of SVT to sinus tachycardia. She was subsequently provided IV fluids and p.o. metoprolol tartrate. I reviewed the patient's labs as below. I discussed the patient's case and management with admitting hospitalist. Patient is accepted to hospitalist service further workup and evaluation. Critical Care Time: A total of 40 minutes spent in direct patient care with coordinating critical resuscitation, procedures, reviewing records, discussing with consultants, reviewing labs, and/or managing patient. Admission/Observation Consideration of admission/observation: Escalation of care including admission/observation considered Consult Healthcare Provider Management of the patient was discussed with: Hospitalist Lab Data [facility] Lab Attestation statement: I reviewed the patient's lab results. Labs demonstrates stable anemia with hemoglobin 11.3, patient with borderline potassium of 3.7 (provided repletion with 40 mEq p.o. potassium chloride), otherwise metabolic panel reassuring, ethanol/acetaminophen/salicylate level negative. 01/16/25 13:38 01/16/25 13:38 Labs: Lab Results 01/16/25 Range/Units 13:38 WBC 10.2 (4.8-10.8) X10*3/uL RBC 3.88 L (4.20-5.50) X10*6/uL Hgb 11.3 L (12.0-16.0) g/dl Hct 33.3 L (37.0-47.0) % MCV 85.8 (80.0-98.0) fL MCH 29.1 (27.0-33.0) pg MCHC 33.9 (31.0-35.0) g/dl RDW 13.7 (11.0-16.0) % Plt Count 263 (160-400) X10*3/uL MPV 9.2 L (9.4-12.3) fL Immature Gran % (Auto) 0.5 H (0.0-0.4) % Neut % (Auto) 69.9 (45-73) % Lymph % (Auto) 19.3 L (20-40) % [place] % (Auto) 8.3 (2-11) % Eos % (Auto) 1.3 (0-4) % Baso % (Auto) 0.7 (0-2) % Lymph # (Auto) 2.0 (1.2-4.9) X10*3/uL [place] # (Auto) 0.8 (0.1-1.2) X10*3/uL Eos # (Auto) 0.1 (0.0-0.4) X10*3/uL Baso # (Auto) 0.1 (0.0-0.2) X10*3/uL Abs Immat Gran (auto) 0.05 H (0.00-0.03) X10*3/uL Absolute Neuts (auto) 7.1 (2.0-8.3) x10*3/uL Absolute Nucleated RBC 0.000 (0.0-0.012) X10*3/uL Nucleated RBC % (auto) 0.0 (0.0-0.2) /100WBC Sodium 142 (135-145) mmol/L Potassium 3.7 (3.3-5.1) mmol/L Chloride 110 H (96-108) mmol/L Carbon Dioxide 23 (22-29) mmol/L Anion Gap 13 (12-20) BUN 14 (9-16) mg/dL Creatinine 0.67 (0.5-1.4) mg/dL Estim Creat Clear Calc 90.4 Estimated GFR > 60 Random Glucose 81 (60-115) mg/dL Calcium 8.7 D (8.4-10.2) mg/dL Magnesium 2.1 (1.6-2.6) mg/dL Total Bilirubin 0.2 (0.0-1.0) mg/dL AST 23 (5-31) U/L ALT 18 (0-31) U/L Alkaline Phosphatase 53 (39-117) U/L Total Protein 6.6 (6.5-8.0) g/dL Albumin 3.9 (3.5-5.0) g/dL Salicylates < 5.0 L (15-30) mg/dL Acetaminophen < 3 (<30) mcg/mL Ethyl Alcohol < 10 mg/dL Independent Interpretation I performed an independent interpretation of an: EKG Interpretation: Initial EKG demonstrates narrow complex SVT at 196, QRS 76, QTC 419, no STEMI, AST depressions leads V2-V6 likely rate related. Repeat EKG demonstrates sinus tachycardia at 112 beats per minute, AK 138, QRS 78, QTC 461, no ST segment changes, no STEMI. Discharge Plan Discharge Clinical Impression: SVT (supraventricular tachycardia) Patient Disposition: Admitted As Inpatient Prescriptions: No Action citalopram 20 mg tablet 20 mg PO DAILY dextroamphetamine-amphetamine 20 mg tablet 1 tab PO BID alprazolam 2 mg tablet 2 mg PO DAILY PRN (Reason: Anxiety) lorazepam 1 mg tablet PO Print Language: Swedish
[2025-01-16] MEDS: Potassium Chloride ER 20 MEQ TAB.ER.PRT 40 MEQ PO (14:52)
[2025-01-16] MEDS: diazePAM 5 MG TABLET PO (14:52)
--- NOTE | 2025-01-16 15:11 | PHA.MEDREC ---
Addendum entered by Pili Grimes RPh 01/16/25 15:21: reviewed by [facility]. Original Note: Pharmacy Consult ? Medication Reconciliation Pharmacy has completed the medication reconciliation. Spoke with patient and she was able to confirm her medications. Patient confirmed her Lorazepam 1mg tab and confirmed she takes 2 tabs (2mg) at bedtime as needed for anxiety. She confirmed she just started taking Methadone today at [facility] clinic on [address] and confirmed the clinic gave her 40mg. Patient could not remember when she last took her medications if it was this morning or yesterday.
--- OUTSIDE RECORDS SUMMARY | 2025-01-16 15:52 | XMS_ITS | Encounter Summary ---
Author Organization [facility] Address [address] [place] [address] Care Team Providers Care Cross Tie Cutter Name Role Phone Physician, Pcp Unknown Primary Care Provider Elidia vailable Reason for Visit * Reason Comments Panic Attack Pt here with c/o adams ic attack x 3-4 hrs, took her medication but not helping at all. Encounter Details Date Type Department Care Team (Late st Contact Info) Description 01/13/2025 5:15 AM EDT - 01/13/2025 9:29 AM EDT Emergency [facility] Emergency [address] [place] [address] Emotional distress (Primary Dx); Anxiety Discharge Disposition: Home or Self Care Social History Tobacco Use Types Packs/Day Years Used Date Smoking Tobacco: Never Smokeless Tobacco: Never Alcohol Use Standard Drinks/Week Comments No 0 (1 standard drink = 0.6 oz pur e alcohol) Comments Unknown Sex and Gender Information Value Date Recorded Sex Assigned at Female 01/13/2025 5:11 AM EDT Legal Sex Female 9:52 PM EST Gender Identity Female 01/13/2025 5:11 AM EDT Sexual Orientation Straight 01/13/2025 5: 11 AM EDT documented as of this encounter Last Filed Vital Signs Vital Sign Reading Time Taken Comments Blood Pressure 124/89 01/13/2025 5:12 AM EDT Pulse 106 01/13/2025 5:12 AM EDT Temperature 36.9 ??C (98.4 ??F) 01/13/2025 5:12 AM ED T Respiratory Rate 18 01/13/2025 5:12 AM EDT Oxygen Saturation 99% 01/13/2025 5:12 AM EDT Inhaled Oxygen Concentration - - Weight 61.2 kg (135 lb) 01/13/2025 5:12 AM EDT Height 154.9 cm (5' 1 ) 01/13/2025 5:12 AM EDT Body Mass Index 25.51 01/13/2025 5:12 AM EDT documented in this encounter Discharge Instructions * Discharge Instructions* CR Mena - 01/13/2025 9:07 AM EDT Follow up with your psychiatrist. Fill your xanax as planned this Monday. 2 mg of Ativan as needed 3 times daily as needed for anxiety. * Attachments The following attachments cannot be sent through Care Everywhere. * Anxiety Disorder (Mauritanian) documented in this encounter Medications at Time of Discharge LORazepam (ATIVAN) 1 mg tablet Take 2 tablets (2 mg total) by mouth 3 (three) times a day if needed for anxiety for up to 4 days. Max Daily Amount: 6 mg 15 tablet 01/13/2025 01/17/2025 documented as of this encounter Ordered Prescriptions Prescription Sig Dispense Quantity Refills Last Filled Start Date End Date LORazepam (ATIVAN) 1 mg tablet Take 2 tablets (2 mg total) by mouth 3 (three) times a day if needed for anxiety for up to 4 days. Max Daily Amount: 6 mg 15 tablet 01/13/2025 documented in this encounter Discharge Disposition Disposition Code Departure Means Destination Comment s Home or Self Care documented in this encounter Progress Notes * Jojo Calero RN - 01/13/2025 5:12 AM EDT Pt here with c/o panic attack x 3-4 hrs, took her medication but not helping at all. * CR Ivey - 01/13/2025 5:08 AM EDT Emergency Medicine Note Patient Name: Daxa Wood Initial Evaluation: 01/13/2025 : 1975 Patient's PCP: Pcp Unknown Physician Emergency Physician: CR Ivey History of Present Illness Chief Complaint: Chief Complaint Patient presents with Panic Attack Pt here with c/o panic attack x 3-4 hrs, took her medication but not helping at all. HPI: This is a 49-year-old female with a history of anxiety and depression who is presenting today with complaint of panic attack. Patient reports for the past 3 days she has had significant anxiety with chest tightness, shortness of breath, worse in the last 24 hours she has been unable to sleep. She has a prescription for the Xanax however she does not have any left she has not taken any in the past3 days. She reports a lot of stressors recently. Has SI and HI. She denies any nausea vomiting diarrhea or abdominal pain. She reports she is currently experiencing chest tightness. She denies any alcohol use or substance use. ROS: I have performed a ROS with the pertinent positives and negatives documented in the history ofpresent illness. 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 Depressive disorder, not elsewhere classified DX:Depressive disorder, not elsewhere classified; COMMENT: Post : was on meds but has stoppped taking them Migraines 02/19/2016 DX:Migraines Pain in ankle DX:Pain in ankle; COMMENT: left posterior tibial tendon needs to be replaced Spondylosis of cervical region without myelopathy or radiculopathy DX:Spondylosis of cervical region without myelopathy or radiculopathy Past Surgical History: Procedure Laterality Date ESOPHAGOGASTRODUODENOSCOPY 05/02/16 PROCEDURE: GA EGD TRANSORAL BIOPSY SINGLE/MULTIPLE; COMMENT: linear antral erythema with several small erosions;;mild reactive changes without H. pylori Social History Tobacco Use Smoking status: Never Smokeless tobacco: Never Substance Use Topics Alcohol use: No Drug use: No Family History Problem Relation Name Age of Onset Hyperlipidemia Mother Hyperlipidemia Father Stroke Father Hypertension Father Hypertension Paternal Grandmother Stroke Maternal Grandmother Other cancer Maternal Grandfather esophagus is allergic to tramadol. No current facility-administered medications on file prior to encounter. No current outpatient medications on file prior to encounter. Physical Exam ED Triage Vitals [01/13/25 0512] Temp Heart Rate Resp BP 36.9 ??C (98.4 ??F) 106 18 124/89 SpO2 Temp Source Heart Rate Source Patient Position 99 % Oral -- Sitting BP Location FiO2 (%) Right arm -- General: Anxious distraught intermittently crying. Rocking on the stretcher Skin: warm, dry, no diaphoresis. Eyes: PERRLA, EOMI. Respiratory: lungs clear to auscultation bilaterally, no increased work of breathing. Cardiovascular: Tachycardic rate and rhythm Gastrointestinal: Soft, nondistended, nontender, without rebound tenderness or guarding. +BS x4 MSK: Moving all extremity spontaneously, ambulatory Neurologic: Awake, alert, and oriented x3. No focal deficits. Psychiatric: Anxious emotional distress, she is exhibiting pressured speech denies SI HI Results Vitals: 01/13/25 0512 BP: 124/89 BP Location: Right arm Patient Position: Sitting Pulse: 106 Resp: 18 Temp: 36.9 ??C (98.4 ??F) TempSrc: Oral SpO2: 99% Weight: 61.2 kg (135 lb) Height: 1.549 m (61 ) Labs Reviewed ACETAMINOPHEN LEVEL - Abnormal Result Value Acetaminophen Level <2.0 (*) SALICYLATE LEVEL - Abnormal Salicylate Level <1.7 (*) CBC WITH AUTO DIFFERENTIAL - Abnormal WBC 9.1 RBC 4.30 Hemoglobin 12.3 Hematocrit 37.4 MCV 88.0 MCH 28.9 MCHC 32.9 RDW 14.0 Platelets 313 MPV 9.9 NRBC 0.0 NRBC Absolute 0.00 Neutrophils Relative 61.4 Lymphocytes Relative 23.9 Monocytes Relative 11.5 Eosinophils Relative 1.8 Basophils Relative 1.0 Immature Granulocytes Relative 0.4 Neutrophils Absolute 5.61 Lymphocytes Absolute 2.18 Monocytes Absolute 1.05 (*) Eosinophils Absolute 0.16 Basophils Absolute 0.09 Immature Granulocytes Absolute 0.04 (*) TROPONIN I HIGH SENSITIVITY - Normal High Sensitivity Troponin I <3 Narrative: High levels of biotin in samples may falsely decrease hsTroponin values. Use caution when interpreting hsTroponin results in patients taking biotin who exhibit renal impairment (eGFR <60) or in patients taking more than 20 mg/day of biotin. MAGNESIUM - Normal Magnesium 2.0 ETHANOL - Normal Ethanol Level <3 THYROID STIMULATING HORMONE WITH REFLEX TO FREE T4 AND FREE T3 - Normal TSH 0.54 CBC AND DIFFERENTIAL Narrative: The following orders were created for panel order CBC and differential. Procedure Abnormality Status --------- ------ CBC auto differential[[id number]] Abnormal Final result Please view results for these tests on the individual orders. METHADONE LEVEL Abnormal Labs Reviewed ACETAMINOPHEN LEVEL - Abnormal; Notable for the following components: Result Value Acetaminophen Level <2.0 (*) All other components within normal limits SALICYLATE LEVEL - Abnormal; Notable for the following components: Salicylate Level <1.7 (*) All other components within normal limits CBC WITH AUTO DIFFERENTIAL - Abnormal; Notable for the following components: Monocytes Absolute 1.05 (*) Immature Granulocytes Absolute 0.04 (*) All other components within normal limits No orders to display EKG Interpretation EKG shows sinus tachycardia at a rate of 108 bpm, no STEMI Critical Care Time None ? Differential Diagnosis Panic disorder, acute emotional distress, electrolyte derangement, ACS, substance use, benzodiazepine dependence, benzodiazepine withdrawal Medical Decision Making 49-year-old female presenting with panic attack she reports she has been having a consistent panic attack for the past 24 hours she has not been able to sleep, she ran out of her Xanax. On exam patient is acutely distressed she is rocking on the stretcher. She is exhibiting pressured speech intermittently tearful. Cardiopulmonary exam is unremarkable although patient is tachycardic in the 100s. Given her tachycardia and complaint of chest pain will obtain labs, chest x-ray EKG. Will additionally obtain TSH and UA to rule out underlying etiology of patient's symptoms, urine drug screen. She denies suicidality however she is exhibiting significant emotional distress suggesting she will benefit from a crisis evaluation pending medical clearance. Medications LORazepam (ATIVAN) injection 1 mg (1 mg intravenous Given 01/13/25 0648) sodium chloride 0.9 % bolus 1,000 mL (0 mL intravenous Stopped 01/13/25 0826) ALPRAZolam (XANAX) tablet 1 mg (1 mg oral Given 01/13/25 0723) ALPRAZolam (XANAX) tablet 1 mg (1 mg oral Given 01/13/25 0902) ED Course as of 01/14/251708 Mon Jan 13, 2025 0650 Patient care will be signed out to the day team pending labs and reevaluation. [BT] 0735 I received signout this patient pending further evaluation, complaining of increasing anxiety,given Xanax [NG] 0903 My reassessment of patient she is not suicidal, she is not homicidal she is requesting to go home, she understands that she ran out of her Xanax, she states this is because her father recently . She denies a history of bipolar disorder, she has a known psychiatrist, for this reason plan will be to discharge with medication to take as needed for anxiety until she can further follow-up with her psychiatrist [NG] ED Course User Index [BT] CR Ivey [NG] CR Mena Clinical Impressions as of 01/14/251708 Emotional distress Anxiety Procedures Procedures Diagnosis 1. Emotional distress 2. Anxiety Disposition Discharge ED Prescriptions Medication Sig Dispense Start Date End Date Auth. Provider LORazepam (ATIVAN) 1 mg tablet Take 2 tablets (2 mg total) by mouth 3 (three) times a day if neededfor anxiety for up to 4 days. Max Daily Amount: 6 mg 15 tablet 01/13/2025 01/17/2025 CR Mena Physician Attestation CR Ivey 01/13/25 0550 CR Ivey 01/13/25 0705 CR Ivey 01/13/25 0722 CR Ivey 01/14/251708 Cosigned by Aram Day MD at 01/16/2025 6:56 AM EDT documented in this encounter Plan of Treatment Not on file documented as of this encounter Procedures Procedure Name Priority Date/Time Associated Diagnosis Comments ECG ANNOTATED 01/14/2025 TROPONIN I HIGH SENSITIVITY STAT 01/13/2025 6:42 AM EDT THYROID STIMULATING HORMONE WITH REFLEX TO FREE T4 AND FREE T3 STAT 01/13/2025 6:42 AM EDT CBC WITH AUTO DIFFERENTIAL STAT 01/13/2025 6:42 AM EDT METHADONE LEVEL STAT 01/13/2025 6:42 AM EDT CBC AND DIFFERENTIAL STAT 01/13/2025 6:42 AM EDT MAGNESIUM STAT 01/13/2025 6:42 AM EDT ETHANOL STAT 01/13/2025 6:42 AM EDT ACETAMINOPHEN LEVEL STAT 01/13/2025 6 :42 AM EDT SALICYLATE LEVEL STAT 01/13/2025 6:42 AM EDT ECG 12-LEAD STAT 01/13/2025 6:36 AM EDT documented in this encounter Results * ECG-Annotated (01/14/2025) us Provider Onbase MD ECG ORDERABLES Final Result * Thyroid stimulating hormone with reflex to free t4 and free t3 (TSH Reflex) (01/13/2025 6:42 AM EDT) TSH 0.54 0.40 - 4.00 mcIU/mL LAB CHEMISTRY METHOD 01/13/2025 10:07 AM EDT [facility] Blood Venous blood specimen / Unknown Venipuncture / Unknown 01/13/2025 6:42 AM EDT 01/13/2025 7:34 AM EDT us Irais HANKINS LAB BLOOD ORDERABLES Final Res ult [facility] [address] [place] [address], * (ABNORMAL) CBC auto differential (01/13/2025 6:42 AM EDT) WBC 9.1 4.8 - 10.8 K/mcL LAB HEMETOLOGY METHOD 01/13/2025 7:39 AM EDT [facility] RBC 4.30 3.80 - 4.80 M/mcL LAB HEMETOLOGY METHOD 01/13/2025 7:39 AM EDT [facility] Hemoglobin 12.3 11.5 - 16.0 g/dL LAB HEMETOLOGY METHOD 01/13/2025 7:39 AM [facility] Hematocrit 37.4 35.0 - 47.0 % LAB HEMETOLOGY METHOD 01/13/2025 7:39 AM EDT [facility] MCV 88.0 79.0 - 98.0 FL LAB HEMETOLOGY METHOD [facility] MCH 28.9 27.0 - 32.0 pcg LAB HEMETOLOGY METHOD 01/13/2025 7:39 AM [facility] MCHC 32.9 32.0 - 37.0 g/dL LAB HEMETOLOGY METHOD 01/13/2025 7:39 AM EDT [facility] RDW 14.0 11.0 - 15.0 % LAB HEMETOLOGY METHOD 01/13/2025 7:39 AM T [facility] Platelets 313 130 - 400 K/mcL LAB HEMETOLOGY METHOD 01/13/2025 7:39 AM [facility] MPV 9.9 7.0 - 11.0 FL LAB HEMETOLOGY METHOD 01/13/2025 7:39 AM [facility] NRBC 0.0 <1.0 % LAB HEMETOLOGY METHOD 01/13/2025 7:39 AM [facility] NRBC Absolute 0.00 <0.10 K/mcL LAB HEMETOLOGY METHOD 01/13/2025 7:39 AM [facility] Neutrophils Relative 61.4 % LAB HEMETOLOGY METHOD 01/13/2025 7:39 AM [facility] Lymphocytes Relative 23.9 % LAB HEMETOLOGY METHOD 01/13/2025 7:39 AM [facility] Monocytes Relative 11.5 % LAB HEMETOLOGY METHOD 01/13/2025 7:39 AM [facility] Eosinophils Relative 1.8 % LAB HEMETOLOGY METHOD 01/13/2025 7:39 AM [facility] Basophils Relative 1.0 % LAB HEMETOLOGY METHOD 01/13/2025 7:39 AM [facility] Immature Granulocytes Relative 0.4 % LAB HEMETOLOGY METHOD 01/13/2025 7:39 AM [facility] Neutrophils Absolute 5.61 1.50 - 7.00 K/mcL LAB HEMETOLOGY METHOD 01/13/2025 7:39 AM [facility] Lymphocytes Absolute 2.18 1.00 - 5.00 K/mcL LAB HEMETOLOGY METHOD 01/13/2025 7:39 AM [facility] Monocytes Absolute 1.05(H) 0.20 - 1.00 K/mcL LAB HEMETOLOGY METHOD 01/13/2025 7:39 AM [facility] Eosinophils Absolute 0.16 0.00 - 0.50 K/mcL LAB HEMETOLOGY METHOD 01/13/2025 7:39 AM [facility] Basophils Absolute 0.09 0.00 - 0.20 K/mcL LAB HEMETOLOGY METHOD 01/13/2025 7:39 AM EDT [facility] Immature Granulocytes Absolute 0.04(H) 0.00 - 0.03 K/mcL LAB HEMETOLOGY METHOD 01/13/2025 7:39 AM EDT [facility] Blood Venous blood specimen / Unknown Venipuncture / Unknown 01/13/2025 6:42 AM EDT 01/13/2025 7:34 AM EDT [facility] [place] [facility] BLOOD ORDERABLES Final Res ult Performing Organization Address [facility]/ZIP Co de Phone Number [facility] [address] [place] [address], [place] [phone] * Troponin I high sensitivity (NOW and then in 1 hour) (01/13/2025 6:42 AM EDT) [facility] High Sensitivity Troponin I <3 <=54 ng/L LAB CHEMISTRY METHOD 01/13/2025 8:36 AM EDT [facility] Blood Venous blood specimen / Unknown Venipuncture / Unknown 01/13/2025 6:42 AM EDT 01/13/2025 7:34 AM EDT Narrative [facility] - 01/13/2025 8:36 AM EDT High levels of biotin in samples may falsely decrease hsTroponin values. ??Use caution when interpreting hsTroponin results in patients taking biotin who exhibit renal impairment (eGFR <60) or in patients taking more than 20 mg/day of biotin. Irais Flood [place] LAB BLOOD ORDERABLES Final Res ult Performing Organization Address [facility]/ZIP Co de Phone Number [facility] [address] [place] [address], [place] [phone] * Methadone level (01/13/2025 6:42 AM EDT) [facility] Methadone Serum <25.0 ng/mL 4:06 AM EDT [facility] Comment: Methadone - Serum Reference Ranges: ?Therapeutic Range (Analgesic): ??100 - ??400 ng/mL ?Addiction Therapy Range: ?100 - 1000 ng/mL ?Toxic level range: ? >2000 ng/mL If applicable, any drug confirmation testing reported here was developed and the performance characteristics determined by [facility]. This confirmation testing has not been cleared or approved by the FDA. The laboratory is regulated under CLIA as qualified to perform high-complexity testing. This test is used for patient testing purposes. It should not be regarded as investigational or for research. Test performed at [facility], [address] [place], [place] ??[address] ? [phone] Callie Prado MD, PhD - Vp Lab Blood Venous blood specimen / Unknown Venipuncture / Unknown 01/13/2025 6:42 AM EDT 01/13/2025 7:34 AM EDT [facility] BLOOD ORDERABLES Final Res ult Performing Organization Address [facility] de Phone Number [facility] [address] [place] [address] * (ABNORMAL) Salicylate level (01/13/2025 6:42 AM EDT) Salicylate Level <1.7(L) 2.0 - 29.0 mg/dL LAB CHEMISTRY METHOD 01/13/2025 9:38 AM EDT [facility] Blood Venous blood specimen / Unknown Venipuncture / Unknown 01/13/2025 6:42 AM EDT 01/13/2025 7:34 AM EDT [facility] BLOOD ORDERABLES Final Res ult Performing Organization Address [facility] Co de Phone Number [facility] [address] [place] [address], [place] [phone] * (ABNORMAL) Acetaminophen level (01/13/2025 6:42 AM EDT) Acetaminophen Level <2.0(L) 10.0 - 30.0 mcg/mL LAB CHEMISTRY METHOD 01/13/2025 9:39 AM EDT [facility] Blood Venous blood specimen / Unknown Venipuncture / Unknown 01/13/2025 6:42 AM EDT 01/13/2025 7:34 AM EDT Irais HANKINS LAB BLOOD ORDERABLES Final Res ult Performing Organization Address [facility]/ZIP Co de Phone Number [facility] [address] [place] [address], * Ethanol (01/13/2025 6:42 AM EDT) Ethanol Level <3 0 - 10 mg/dL LAB CHEMISTRY METHOD 01/13/2025 9:39 AM EDT [facility] Blood Venous blood specimen / Unknown Venipuncture / Unknown 01/13/2025 6:42 AM EDT 01/13/2025 7:34 AM EDT Irais HANKINS LAB BLOOD ORDERABLES Final Res ult [facility] [address] [place] [address], [place] [phone] * Magnesium (01/13/2025 6:42 AM EDT) Magnesium 2.0 1.9 - 2.6 mg/dL LAB CHEMISTRY METHOD 01/13/2025 9:38 AM EDT [facility] Blood Venous blood specimen / Unknown Venipuncture / Unknown 01/13/2025 6:42 AM EDT 01/13/2025 7:34 AM EDT Irais HANKINS LAB BLOOD ORDERABLES Final Res ult [facility] [place] [facility] [address] [place] [address], [place] [phone] * ECG 12 lead (01/13/2025 6:36 AM EDT) Ventricular Rate ECG 108 BPM GEMUSE Atrial Rate 108 BPM GEMUSE P-R Interval 118 ms GEMUSE QRS Duration 76 ms GEMUSE Q-T Interval 338 ms GEMUSE QTc 452 ms GEMUSE P Wave [place] 62 degrees GEMUSE R [place] 12 degrees GEMUSE T [place] 46 degrees GEMUSE ECG Interpretation Sinus tachycardia Otherwise normal ECG When compared with ECG of 07-FEB-2021 04:56, T wave inversion no longer evident in Inferior leads Confirmed by DIANA STILL ([id number]) on 01/14/2025 12:43:42 PM GEMUSE 01/13/2025 6:36 AM EDT 01/14/2025 12:43 PM EDT us rIais HANKINS ECG ORDERABLES Final Result Performing Organization Address [facility]/ZIP Co de Phone Number GEMUSE documented in this encounter Visit Diagnoses Diagnosis Emotional distress- Primary Anxiety Anxiety state, unspecified documented in this encounter Administered Medications Inactive Administered Medications - up to 3 most recent administrations Medication Order MAR Action Action Date Dose Rate Site ALPRAZolam (XANAX) tablet 1 mg 1 mg, oral, Once, On Mon01/13/25 at 0720, For 1 dose Given 01/13/2025 7:23 AM EDT 1 mg ALPRAZolam (XANAX) tablet 1 mg 1 mg, oral, Once, On Mon01/13/25 at 0900, For 1 dose Given 01/13/2025 9:02 AM EDT 1 mg LORazepam (ATIVAN) injection 1 mg 1 mg, intravenous, Once, On Mon01/13/25 at 0628, For 1 dose, Prior to IV use, lorazepam injection should be DILUTED with an equal volume of compatible solution; Rate of administration should NOT exceed 2 mg/min. Given 01/13/2025 6:48 AM EDT 1 mg sodium chloride 0.9 % bolus 1,000 mL 1,000 mL, intravenous, at 2,000 mL/hr, Administer over 30 Minutes, Once, On Mon01/13/25 at 0628, For 1 dose New Bag 01/13/2025 6:48 AM EDT 1,000 mL 2000 mL/hr documented in this encounter Active and Recently Administered Medications Times are shown in EDT. Scheduled Medication Order 01/11/2025 01/12/2025 01/13/2025 ALPRAZolam (XANAX) tablet 1 mg (COMPLETED) 1 mg, oral, Once, On Mon01/13/25 at 0720, For 1 dose 0723 (Given - Provid er: Diana Booth RN) ALPRAZolam (XANAX) tablet 1 mg (COMPLETED) 1 mg, oral, Once, On Mon01/13/25 at 0900, For 1 dose 0902 (Given - Provid er: Diana Booth RN) LORazepam (ATIVAN) injection 1 mg (COMPLETED) 1 mg, intravenous, Once, On Mon01/13/25 at 0628, For 1 dose, Prior to IV use, lorazepam injection should be DILUTED with an equal volume of compatible solution; Rate of administration should NOT exceed 2 mg/min. 0648 (Given - Provid er: Christelle Ibarra RN) sodium chloride 0.9 % bolus 1,000 mL (COMPLETED) 1,000 mL, intravenous, at 2,000 mL/hr, Administer over 30 Minutes, Once, On Mon01/13/25 at 0628, For 1 dose 0648 (New Bag - Prov ider: Christelle Ibarra RN)0826 (Stopped - Provider: Diana Booth RN) documented in this encounter Care Teams Cross Tie Cutter Relationship Specialty Start Date End Date Physician, Pcp Unknown PCP - General 01/13/25 documented as of this encounter
--- OUTSIDE RECORDS SUMMARY | 2025-01-16 15:53 | XMS_ITS | Clinical Summary ---
Author Organization [facility] Address [address] [place] [address] Phone Care Team Providers Care Restaurant Area Director Name Role Phone Physician, Pcp Unknown Primary Care Provider Elidia vailable Allergies Active Allergy Reactions Criticality Noted Date Comments Tramadol Nausea And Vomiting 01/13/2025 Medications LORazepam (ATIVAN) 1 mg tablet Take 2 tablets (2 mg total) by mouth 3 (three) times a day if needed for anxiety for up to 4 days. Max Daily Amount: 6 mg 15 tablet 01/13/2025 Active Encounters Date Type Department Care Team Description 01/13/2025 5:15 AM EDT - 01/13/2025 9:29 AM EDT Emergency [facility] [address] [place] [address] Emotional distress (Primary Dx); Anxiety Discharge Disposition: Home or Self Care from Last 3 Months Surgical History Surgery Date Site/Laterality Comments ESOPHAGOGASTRODUODENOSCOPY 05/02/16 PROCEDURE: [facility] EGD TRANSORAL BIOPSY SINGLE/MULTIPLE; COMMENT: linear antral erythema with several small erosions;;mild reactive changes without H. 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:Benzodi azepine misuse Spondylosis of cervical jonnie on without myelopathy or radiculopathy DX:Spondylosis of cervical region without myelopathy or radiculopathy Family History Medical History Relation Name Comments Hyperlipidemia Father Hypertension Father Stroke Father Other cancer Maternal Grandfather [facility] Stroke Maternal Grandmother Hyperlipidemia Mother Hypertension Paternal Grandmother Relation Name Status Comments Brother 1 Alive Brother 2 Alive Father Alive Maternal Grandfather Maternal Grandmother Mother Alive Paternal Grandfather Paternal Grandmother Social History Tobacco Use Types Packs/Day Years [...] Orientation Straight 01/13/2025 5: 11 AM EDT Obstetrics History Last Filed Vital Signs Vital Sign Reading [...] Mass Index 25.51 01/13/2025 5:12 AM EDT Plan of Treatment Health Maintenance Due Date Last Done Comments Breast Cancer Screening 1977 Hepatitis A Vaccines (1 of 2 - Risk 2-dose series) 1996 Hepatitis B Vaccines (1 of 3 - 19+ 3-dose series) 1996 Cervical Cancer Screening: Pap Smear 1998 Colorectal Cancer Screening: Colonoscopy 08/20/2022 Depression Screening 08/20/2022 HIV Screening 08/20/2022 Hepatitis C Screening 08/20/2022 Social Influencers of Health Screening 08/20/2022 COVID-19 Vaccine ( season) 2024 06/03/2022, 07/29/2021, 01/26/2021, Additional history exists Influenza Vaccine (Season Ended) 2025 DTaP,Tdap,and Td Vaccines (3 - Td or Tdap) 04/18/2029 04/18/2019, 01/10/2005 Pneumococcal Vaccine: Pediatrics (0 to 5 Years) and At-Risk Patients (6 to 64 Years) Aged Out 04/19/2019 No longer eligible based on patient's age to complete this topic HIB Vaccines Aged Out No longer eligi ble based on patient's age to complete this topic HPV Vaccines Aged Out No longer eligi ble based on patient's age to complete this topic IPV Vaccines Aged Out No longer eligi ble based on patient's age to complete this topic MMR Vaccines Aged Out No longer eligi ble based on patient's age to complete this topic Meningococcal ACWY Vaccine Aged Out N o longer eligible based on patient's age to complete this topic Meningococcal B Vaccine Aged Out No l onger eligible based on patient's age to complete this topic RSV Immunization Patients Under 20 months Aged Out No longer eligible based on patient's age to complete this topic Varicella Vaccines Aged Out No longer eligible based on patient's age to complete this topic Procedures Procedure Name Priority Date/Time Associated Diagnosis Comments ECG ANNOTATED 01/14/2025 THYROID STIMULATING HORMONE WITH REFLEX TO FREE T4 AND FREE T3 STAT 01/13/2025 6:42 AM EDT CBC WITH AUTO DIFFERENTIAL STAT 01/13/2025 6:42 AM EDT METHADONE LEVEL STAT 01/13/2025 6:42 AM EDT SALICYLATE LEVEL STAT 01/13/2025 6:42 AM EDT ACETAMINOPHEN LEVEL STAT 01/13/2025 6 :42 AM EDT ETHANOL STAT 01/13/2025 6:42 AM EDT MAGNESIUM STAT 01/13/2025 6:42 AM EDT TROPONIN I HIGH SENSITIVITY STAT 01/13/2025 6:42 AM EDT CBC AND DIFFERENTIAL STAT 01/13/2025 6:42 AM EDT ECG 12-LEAD STAT 01/13/2025 6:36 AM EDT from Last 3 Months Results * ECG-Annotated (01/14/2025) us Provider Onbase MD ECG ORDERABLES Final Result * Troponin I high sensitivity (NOW and then in 1 hour) (01/13/2025 6:42 AM EDT) [facility] High Sensitivity Troponin I <3 <=54 ng/L LAB CHEMISTRY METHOD 01/13/2025 8:36 AM EDT [facility] Blood Venous blood specimen / Unknown Venipuncture / Unknown 01/13/2025 6:42 AM EDT 01/13/2025 7:34 AM EDT Narrative [facility] - 01/13/2025 8:36 AM EDT High levels of biotin in samples may falsely decrease hsTroponin values. ??Use caution when interpreting hsTroponin results in patients taking biotin who exhibit renal impairment (eGFR <60) or in patients taking more than 20 mg/day of biotin. Irais HANKINS LAB BLOOD ORDERABLES Final Res ult [facility] [address] [place] [address], * Thyroid stimulating hormone with reflex to free t4 and free t3 (TSH Reflex) (01/13/2025 6:42 AM EDT) [facility] TSH 0.54 0.40 - 4.00 mcIU/mL LAB CHEMISTRY METHOD 01/13/2025 10:07 AM EDT [facility] Blood Venous blood specimen / Unknown Venipuncture / Unknown 01/13/2025 6:42 AM EDT 01/13/2025 7:34 AM EDT us Irais HANKINS LAB BLOOD ORDERABLES Final Res ult [facility] [address] [place] [address], * (ABNORMAL) CBC auto differential (01/13/2025 6:42 AM EDT) [facility] WBC 9.1 4.8 - 10.8 K/mcL LAB HEMETOLOGY METHOD 01/13/2025 7:39 AM EDT [facility] RBC 4.30 3.80 - 4.80 M/mcL LAB [facility] Hemoglobin 12.3 11.5 - 16.0 g/dL LAB HEMETOLOGY METHOD [facility]/13[facility]25 7[facility] Hematocrit 37.4 35.0 - 47.0 % LAB HEMETOLOGY METHOD 01/13/2025 7:39 AM [facility] MCV 88.0 79.0 - 98.0 FL LAB HEMETOLOGY METHOD 01/13/2025 7:39 AM [facility] MCH 28.9 27.0 - 32.0 pcg LAB HEMETOLOGY METHOD 01/13/2025 7:39 AM [facility] MCHC 32.9 32.0 - 37.0 g/dL LAB HEMETOLOGY METHOD 01/13/2025 7:39 AM [facility] RDW 14.0 11.0 - 15.0 % LAB HEMETOLOGY METHOD 01/13/2025 7:39 AM [facility] Platelets 313 130 - 400 K/mcL LAB HEMETOLOGY METHOD 01/13/2025 7:39 AM [facility] MPV 9.9 7.0 - 11.0 FL LAB HEMETOLOGY METHOD 01/13/2025 7:39 AM [facility] NRBC 0.0 <1.0 % LAB HEMETOLOGY METHOD 01/13/2025 7:39 AM [facility] NRBC Absolute 0.00 <0.10 K/mcL LAB HEMETOLOGY METHOD 01/13/2025 7:39 AM [facility] Neutrophils Relative 61.4 % LAB HEMETOLOGY METHOD 01/13/2025 7:39 AM [facility] Lymphocytes Relative 23.9 % LAB HEMETOLOGY METHOD 01/13/2025 7:39 AM [facility] Monocytes Relative 11.5 % LAB HEMETOLOGY METHOD 01/13/2025 7:39 AM [facility] Eosinophils Relative 1.8 % LAB HEMETOLOGY METHOD 01/13/2025 7:39 AM [facility] Basophils Relative 1.0 % LAB HEMETOLOGY METHOD 01/13/2025 7:39 AM [facility] Immature Granulocytes Relative 0.4 % LAB HEMETOLOGY METHOD 01/13/2025 7:39 AM [facility] Neutrophils Absolute 5.61 1.50 - 7.00 K/mcL LAB HEMETOLOGY METHOD 01/13/2025 7:39 AM [facility] Lymphocytes Absolute 2.18 1.00 - 5.00 K/mcL LAB HEMETOLOGY METHOD 01/13/2025 7:39 AM [facility] Monocytes Absolute 1.05(H) 0.20 - 1.00 K/mcL LAB HEMETOLOGY METHOD 01/13/2025 7:39 AM [facility] Eosinophils Absolute 0.16 0.00 - 0.50 K/mcL LAB HEMETOLOGY METHOD 01/13/2025 7:39 AM EDT [facility] Basophils Absolute 0.09 0.00 - 0.20 K/[facility] LAB HEMETOLOGY METHOD 01/13/2025 7:39 AM EDT [facility] Immature Granulocytes Absolute 0.04(H) 0.00 - 0.03 K/[facility] LAB HEMETOLOGY METHOD 01/13/2025 7:39 AM EDT [facility] Blood Venous blood specimen / Unknown Venipuncture / Unknown 01/13/2025 6:42 AM EDT 01/13/2025 7:34 AM EDT us Irais HANKINS LAB BLOOD ORDERABLES Final Res ult [facility] [address] [place] [address], * Methadone level (01/13/2025 6:42 AM EDT) Methadone Serum <25.0 ng/mL 4:06 AM EDT [facility] Comment: Methadone - Serum Reference Ranges: ?Therapeutic Range (Analgesic): ??100 - ??400 ng/mL ?Addiction Therapy Range: ?100 - 1000 ng/mL ?Toxic level range: ? >2000 ng/mL If applicable, any drug confirmation testing reported here was developed and the performance characteristics determined by [facility]. This confirmation testing has not been cleared or approved by the FDA. The laboratory is regulated under CLIA as qualified to perform high-complexity testing. This test is used for patient testing purposes. It should not be regarded as investigational or for research. Test performed at [facility], [facility] [place], [place] ??[address] ? [phone] Callie Prado MD, PhD - Diagrammer Blood Venous blood specimen / Unknown Venipuncture / Unknown 01/13/2025 6:42 AM EDT 01/13/2025 7:34 AM EDT Irais Flood [place] LAB BLOOD ORDERABLES Final Res ult [facility] [address] [place] [address] * Magnesium (01/13/2025 6:42 AM EDT) Magnesium 2.0 1.9 - 2.6 mg/dL LAB CHEMISTRY METHOD 01/13/2025 9:38 AM EDT [facility] Blood Venous blood specimen / Unknown Venipuncture / Unknown 01/13/2025 6:42 AM EDT 01/13/2025 7:34 AM EDT [facility] BLOOD ORDERABLES Final Res ult Performing Organization Address [facility] de Phone Number [facility] [address] [place] [address], [place] [phone] * Ethanol (01/13/2025 6:42 AM EDT) Ethanol Level <3 0 - 10 mg/dL LAB CHEMISTRY METHOD 01/13/2025 9:39 AM EDT [facility] Blood Venous blood specimen / Unknown Venipuncture / Unknown 01/13/2025 6:42 AM EDT 01/13/2025 7:34 AM EDT [facility] BLOOD ORDERABLES Final Res ult Performing Organization Address [facility] Co de Phone Number [facility] [address] [place] [address], [place] [phone] * (ABNORMAL) Acetaminophen level (01/13/2025 6:42 AM EDT) Acetaminophen Level <2.0(L) 10.0 - 30.0 mcg/mL LAB CHEMISTRY METHOD 01/13/2025 9:39 AM EDT [facility] Blood Venous blood specimen / Unknown Venipuncture / Unknown 01/13/2025 6:42 AM EDT 01/13/2025 7:34 AM EDT [facility] LAB BLOOD ORDERABLES Final Res ult Performing Organization Address [facility] de Phone Number [facility] [address] [place] [address], [place] [phone] * (ABNORMAL) Salicylate level (01/13/2025 6:42 AM EDT) Salicylate Level <1.7(L) 2.0 - 29.0 mg/dL LAB CHEMISTRY METHOD 01/13/2025 9:38 AM EDT [facility] Blood Venous blood specimen / Unknown Venipuncture / Unknown 01/13/2025 6:42 AM EDT 01/13/2025 7:34 AM EDT [facility] [place] LAB BLOOD ORDERABLES Final Res ult Performing Organization Address [facility] de Phone Number [facility] [address] [place] [address], [place] [phone] * ECG 12 lead (01/13/2025 6:36 AM EDT) Ventricular Rate ECG 108 BPM GEMUSE Atrial Rate 108 BPM GEMUSE P-R Interval 118 ms GEMUSE QRS Duration 76 ms GEMUSE Q-T Interval 338 ms GEMUSE QTc 452 ms GEMUSE P Wave [place] 62 degrees GEMUSE R [place] 12 degrees GEMUSE T [place] 46 degrees GEMUSE ECG Interpretation Sinus tachycardia Otherwise normal ECG When compared with ECG of 07-FEB-2021 04:56, T wave inversion no longer evident in Inferior leads Confirmed by DIANA STILL ([id number]) on 01/14/2025 12:43:42 PM GEMUSE 01/13/2025 6:36 AM EDT 01/14/2025 12:43 PM EDT us Irais HANKINS ECG ORDERABLES Final Result GEMUSE from Last 3 Months Insurance [facility] MEDICA[employer]AGE [address] [place] [address] Care Teams Restaurant Area Director Relationship Specialty Start Date End Date Physician, Pcp Unknown PCP - General 01/13/25
--- OUTSIDE RECORDS SUMMARY | 2025-01-16 15:53 | XMS_ITS | Clinical Summary ---
Author Organization [facility] Address [address] [place] [address] Care Team Providers Care Hotel Lobby Concierge Name Role Phone Unavailable Primary Care Provider Unavailabl e Allergies Active Allergy Reactions Criticality Noted Date Comments Hydrocodone-Acetaminophen Unknown/Patien t and Family Unable to Define Medium 07/26/2017 Methocarbamol Unknown/Patient and Family Unable to Define Medium 07/26/2017 Metoclopramide Unknown/Patient and Family Unable to Define Medium 01/27/2018 Sumatriptan Unknown/Patient and Family Unable to Define Medium 07/26/2017 Tramadol GI Intolerance/Nausea/Vomiting Low 07/26/2017 Medications FLUoxetine (PROzac) 20 MG capsule Take by mouth. Active ALPRAZolam (XANAX) 2 MG tablet Take 2 mg by mouth Once before discharge. 03/07/2012 Active Social History Tobacco Use Types Packs/Day Years Used Date Smoking Tobacco: Never Assessed Comments Unknown Sex and Gender Information Value Date Recorded Sex Assigned at Not on file Legal Sex Female 2:41 PM EDT Gender Identity Not on file Sexual Orientation Not on file Last Filed Vital Signs Vital Sign Reading Time Taken Comments Blood Pressure 137/74 01/17/2022 1:31 AM EDT Pulse 99 01/17/2022 1:31 AM EDT Temperature 36.6 ??C (97.8 ??F) 01/17/2022 1:31 AM ED T Respiratory Rate 18 01/17/2022 1:31 AM EDT Oxygen Saturation 97% 01/17/2022 1:31 AM EDT Inhaled Oxygen Concentration - - Weight 68.2 kg (150 lb 3.9 oz) 12/27/2013 12:36 PM EDT Height 160 cm (5' 3 ) 10/18/2013 11:26 AM EST Body Mass Index 26.61 10/18/2013 11:26 AM EST Plan of Treatment Health Maintenance Due Date Last Done Comments Hepatitis C Virus Screening 1977 HIV Screening 1990 DTaP/Tdap/Td Vaccines (1 - Tdap) 1996 Hepatitis B Vaccines (1 of 3 - 19+ 3-dose series) 1996 Pap Smear (Ages 21-65) 1998 Mammogram 2017 Colonoscopy 2022 COVID-19 Vaccine (1 - 2023-2 5 season) 2024 Influenza Vaccine 04/18/2025 Pneumococcal Vaccine: Pediat luiz (0-5 Years) and At-Risk Patients (6 to 49 Years) Aged Out No longer eligible b ased on patient's age to complete this topic Insurance [facility] [place] [facility] [address] [place] [address] MEDICAID OUT OF STATE [facility] [place] [address] [address] OUT OF STATE - [facility]
--- OUTSIDE RECORDS SUMMARY | 2025-01-16 15:53 | XMS_ITS | Encounter Summary ---
Author Organization [address] [address] Care Team Providers Care College Or [employer] Faculty Member Name Role Phone Unavailable Primary Care Provider Unavailabl e Encounter Details Date Type Department Care Team (Late st Contact Info) Description 2015 Scanned Document [address] [place] [address] [phone] Provider, Generic Social History Tobacco Use Types Packs/Day Years Used Date Smoking Tobacco: Never Assessed Comments Unknown Sex and Gender Information Value Date Recorded Sex Assigned at Not on file Legal Sex Female 2:41 PM EDT Gender Identity Not on file Sexual Orientation Not on file documented as of this encounter Plan of Treatment Not on file documented as of this encounter Visit Diagnoses Not on filedocumented in this encounter
--- OUTSIDE RECORDS SUMMARY | 2025-01-16 15:53 | XMS_ITS | Clinical Summary ---
Author Organization [facility] Address [address] [place] [address] Care Team Providers Care Director Of Residence Life Name Role Phone Melanie Lowery MD Primary Care Provider Allergies Active Allergy Reactions Criticality Noted Date Comments Sumatriptan 02/05/2018 Metoclopramide 02/05/2018 Methocarbamol 02/05/2018 Tramadol 02/05/2018 Medications Medication Sig Dispensed Refills Start Date End Date Status acetaminophen (TYLENOL) 325 MG tablet Take 2 tablets (650 mg total) by mouth every 6 (six) hours as needed for pain. 120 tablet 0 04/12/2018 Active ALPRAZolam (XANAX) 0.5 MG tablet Take 1 tablet (0.5 mg total) by mouth every night at bedtime as needed for sleep. 10 tablet 0 04/12/2018 Active Additional Information Patient taking differently: 1 mgOral Every Night at Bedtime PRN, sleep, Reason: Other (MD orders), Reported on 04/14/2018 FLUoxetine HCl (PROZAC PO) Take by mouth. 0 Active cyclobenzaprine (FLEXERIL) 10 MG tablet Take 1 tablet (10 mg total) by mouth 3 (three) times a day as needed for muscle spasms. 30 tablet 0 09/09/2019 Active prochlorperazine (COMPAZINE) [address] 1 suppository (25 mg total) rectally every 12 (twelve) hours as needed for nausea. 12 suppository 0 09/09/2019 Active butalbital-acetamin ophen-caffeine (FIORICET, ESGIC) 50-325-40 MG per tablet Take 1 tablet by mouth every 4 (four) hours as needed for pain. 0 Active dicyclomine (BENTYL) 20 MG tablet Take 1 tablet (20 mg total) by mouth every 6 (six) hours. 20 tablet 0 09/13/2019 Active ondansetron (ZOFRAN-ODT) 4 MG disintegrating tablet Take 1 tablet (4 mg total) by mouth every 8 (eight) hours as needed for nausea. 20 tablet 0 09/13/2019 Active oxyCODONE (ROXICODONE) 5 MG immediate release tablet Take 1 tablet (5 mg total) by mouth every 6 (six) hours as needed for pain. 6 tablet 0 03/21/2022 Active clindamycin (CLEOCIN) 300 MG capsule Take 1 capsule (300 mg total) by mouth 3 (three) times a day. 30 capsule 0 04/05/2022 Active Active Problems Problem Noted Date Diagnosed Date Anxiety 04/14/2018 Social History Tobacco Use Types Packs/Day Years Used Date Smoking Tobacco: Never Smokeless Tobacco: Never Sex and Gender Information Value Date Recorded Sex Assigned at Female 09/09/2019 2:59 PM EST Gender Identity Female 09/09/2019 2:59 PM EST Sexual Orientation Not on file Job Start Date Occupation Industry Not on file Not on file Not on file Last Filed Vital Signs Vital Sign Reading Time Taken Comments Blood Pressure 107/69 04/04/2022 11:24 PM EDT Pulse 86 04/04/2022 11:24 PM EDT Temperature 36.9 ??C (98.4 ??F) 04/04/2022 11:24 PM E DT Respiratory Rate 16 04/04/2022 11:24 PM EDT Oxygen Saturation 96% 04/04/2022 11:24 PM EDT Inhaled Oxygen Concentration - - Weight 86.2 kg (190 lb) 04/04/2022 11:24 PM EDT Height 157.5 cm (5' 2 ) 04/04/2022 11:24 PM EDT Body Mass Index 34.75 04/04/2022 11:24 PM EDT Plan of Treatment Health Maintenance Due Date Last Done Comments Hepatitis B Vaccines (1 of 3 - 3-dose series) 1977 Hepatitis C Screening 1977 COVID-19 Vaccine (#1) 02/21/1978 Depression Screening 1989 BMI Counseling 1995 Preventative Health Evaluation 1995 DTap / Tdap / Td (1 - Tdap) 1996 Cervical Cancer Screening (P ap Smear) 1998 Colon Cancer Screening (Colonoscopy) 2022 Influenza Vaccine (#1) 2024 Pneumococcal Vaccine Aged Out 04/19/2019 No long er eligible based on patient's age to complete this topic RSV Ped < 20 months Aged Out No longe r eligible based on patient's age to complete this topic Care Teams Director Of Residence Life Relationship Specialty Start Date End Date Melanie Lowery MD [address] [phone] PCP - General Internal Medicine 04/14/18
--- OUTSIDE RECORDS SUMMARY | 2025-01-16 15:53 | XMS_ITS ---
Author Name [facility] Organization Unknown Encounters Encounter Type Encounter Reason Primary Diagnosis Location Date Emergency Other specified disorders of teeth and supporting structures [facility] 01/17/2022 Care Team Organization Name Specialty Phone Email Start Date End Da te [facility] 01/17/2022 05/06/2024 [facility] 01/17/2022 01/17/2022
--- NOTE | 2025-01-16 16:42 | PC.NURSE ---
A/ox3, respirations shallow, tachypneic, maintaining O2 >92% on RA, pt HR 200s, this RN, belinda, and MD Pelaez at bedside. 20g IV placed R ac- verbal order by MD Pelaez to give 6mg Adenosine. MD Pelaez attempted vagal maneuver, pt HR decreased to 120s-130s. BP cycling q 10 to monitor pressure, continous O2 probe on pt. Pt endorsing recent life stressor of her father passing away recently which triggered a panic attack x24 hours. Pt states she was standing in her kitchen when she felt her chest start fluttering. No cardiac hx, multiple panic attacks in the past but none that lasted this long. Pt able to calm down/slow her breathing, IV Versed given to help pt calm down. Call wiley within reach, all needs met at this time.
--- NOTE | 2025-01-16 16:59 | PM.IMHP ---
History of Present Illness Date of Service: 01/16/25 Attending physician on admission: Susanne Aguilar Chief Complaint: Palpitations Pt is a 49-year-old female with a PMH significant for?polysubstance use disorder on methadone, migraines, anxiety and depression who presents to the ED with?palpitations. Pt reports symptoms began around noon this afternoon when she was standing at the sink and suddenly felt ?weird? with lightheadedness, racing heart, and tingling in arms. Also experienced a sense of impending doom and feeling the room closing in on her. Looked at her Apple Watch that indicated a HR in the 200s. Pt called a nurse friend that told he to come to the hospital for evaluation. Pt has long hx of anxiety with recurrent panic attacks often featuring tachycardia. However, pt states never experienced such severe symptoms before. Of note, pt reports was started on methadone 40 mg this morning at around 9:30. Pt reports was previously on methadone a few years ago and was able to tolerated without complications, but eventually weaned herself off. Was also on Suboxone though she reports it led to severe tooth decay. Pt has chronic musculoskeletal pain, especially in right hand. pt has been buying pills that has been labeled oxycodone off the street, though pt is unaware of their exact contents were dosage, and believes they are laced with fentanyl. Has been taking 5+ pills daily with last use yesterday night. Pt denies chest pain/pressure. No SOB or difficulty breathing. Denies fever, chills, nausea, vomiting, abdominal pain. In the ED pt was tachycardic as high as 200, tachypneic up to 25, and initially hypertensive at 146/76 Labs were grossly unremarkable and around baseline for pt. Mild normocytic anemia of 11.3/33.3. No leukocytosis. Renal and hepatic function WNL. EKG demonstrated SVT of [address] depressions in lateral leads with QTc 419. Repeat EKG showed sinus tachycardia without significant ST elevations or depressionsc and QT 461. Pt was treated in the ED with modified Valsalva maneuver which broke her SVT, was also given IVF, midazolam, diazepam, potassium chloride, and metoprolol 25 mg p.o. Pt is admitted to the hospital under observation for treatment and further evaluation of SVT. Review of Systems Review of Systems: Negative except for that which is stated in the HPI. [facility] Medical History Panic attack Depression Anxiety Migraines Social History Household Members: Children Housing: Apartment Alcohol intake: never Comment: administered for opiate withdrawal, pt reports med did not help at all Patient Tobacco Use Status: Never used Tobacco Smoked in Last 30 Days: No Use of substances other than those prescribed or required for medical reasons: No Advance Directives: No Advance Directives Information Provided: Yes Do you have a plan to hurt others: No Plan Nutrition Risks: No Nutritional Risk Patient : No service: No Sexual orientation: Straight/Heterosexual Meds Allergies Allergy/AdvReac Type Severity Reaction Status Date / Time methocarbamol [From ROBAXIN] Allergy Intermediate NAUSEA & Verified 01/16/25 13:19 VOMITING metoclopramide [From REGLAN] Allergy Intermediate PANIC Verified 01/16/25 13:19 ATTACK sumatriptan [From IMITREX] Allergy Intermediate NAUSEA & Verified 01/16/25 13:19 VOMITING hydrocodone [HYDROCODONE] Allergy Unknown UNKNOWN Verified 01/16/25 13:19 tramadol [TRAMADOL] Allergy Unknown UNKNOWN Verified 01/16/25 13:19 Active Medications: Current Medications Alprazolam (Alprazolam 0.5 Mg Tablet) 2 mg PO DAILY PRN PRN Reason: Anxiety Escitalopram Oxalate (Escitalopram Oxalate 10 Mg Tablet) 10 mg PO DAILY NICOLAS Lorazepam (Lorazepam 1 Mg Tablet) 2 mg PO BEDTIME PRN PRN Reason: Anxiety Home Medications ?Medication ?Instructions ?Recorded ?Confirmed ?Last Taken ?Type alprazolam 2 mg tablet 2 mg PO DAILY PRN Anxiety 01/16/25 01/16/25 Unknown History citalopram 20 mg tablet 20 mg PO DAILY 01/16/25 01/16/25 Unknown History dextroamphetamine-amphetamine 20 20 mg PO BID 01/16/25 01/16/25 Unknown History mg tablet ibuprofen 200 mg tablet 800 mg PO Q12H PRN Pain 01/16/25 01/16/25 Unknown History lorazepam 1 mg tablet 2 mg PO BEDTIME PRN Anxiety 01/16/25 01/16/25 Unknown History Physical Exam Vital Signs and Narrative: Vital Signs: Last Vital Signs Temp 97.9 F 01/16/25 14:58 Pulse 110 H 01/16/25 14:58 Resp 20 01/16/25 14:58 BP 126/72 01/16/25 14:58 Pulse Ox 96 01/16/25 14:58 O2 Del Method Room Air 01/16/25 14:58 BMI result Body Mass Index 27.6 General: AOx3, no acute distress Resp: CTA bilaterally CVS: S1, S2, RRR GI: +BS, NT, no distention Skin: Warm, dry Neuro: Cranial nerves II-XII grossly intact bilaterally. Motor grossly intact bilaterally Extremities: No edema Psych: Anxious and restless with slightly pressured speech Results Labs 01/16/25 13:38 01/16/25 13:38 Labs: Laboratory Results - last 24 hr 01/16/25 13:38 MCV 85.8 MCH 29.1 MCHC 33.9 RDW 13.7 Plt Count 263 MPV 9.2 L Immature Gran % (Auto) 0.5 H Neut % (Auto) 69.9 Lymph % (Auto) 19.3 L [place] % (Auto) 8.3 Eos % (Auto) 1.3 Baso % (Auto) 0.7 Lymph # (Auto) 2.0 [place] # (Auto) 0.8 Eos # (Auto) 0.1 Baso # (Auto) 0.1 Abs Immat Gran (auto) 0.05 H Absolute Neuts (auto) 7.1 Absolute Nucleated RBC 0.000 Nucleated RBC % (auto) 0.0 Anion Gap 13 Estim Creat Clear Calc 90.4 Estimated GFR > 60 Random Glucose 81 Calcium 8.7 D Magnesium 2.1 Total Bilirubin 0.2 AST 23 ALT 18 Alkaline Phosphatase 53 Total Protein 6.6 Albumin 3.9 Salicylates < 5.0 L Acetaminophen < 3 Ethyl Alcohol < 10 Assessment and Plan (1) SVT (supraventricular tachycardia): Status: Acute Plan Pt is a 49-year-old female with a PMH significant for?polysubstance use disorder on methadone, migraines, anxiety and depression who presents to the ED with?palpitations. Pt is admitted to the hospital under observation for treatment and further evaluation of SVT. SVT Pt with palpitations x1.5 hours, EKG showing SVT of 196 Broken in ED with modified valsalva maneuver, pt then given metoprolol 25mg po Possibly precipitated by starting methadone this morning Hold methadone Monitor on telemetry Opioid use disorder Pt reports takes 5-6 pills she purchases on the street sold as oxycodone Hold methadone that was restarted this morning prior to SVT episode Previously tolerated methadone a few years ago Reports suboxone led to multiple dental caries Addiction medicine consult for med management Anxiety Continue home mood stabilizers ADHD Hold Adderall due to tachycardia Full Code Attending:?Dr. Aguilar DVT Prophylaxis: Pt ambulatory Pt will be admitted to the hospital under observation for treatment and further evaluation of episode of SVT that requires close cardiac monitoring. Quality Stroke Does the patient have a stroke diagnosis?: No VTE Prior VTE?: No VTE Risk Level:: Medical - moderate - high VTE Device Contraindication: Treatment Not Indicated VTE Drug Contraindication: Treatment Not Indicated
[2025-01-16 18:24] LABS: Amphetamine Screen Urine POSITIVE (Not Detect); Barbiturates, Urine Not Detected (Not Detect); Benzodiazepines Screen Urine POSITIVE (Not Detect); Buprenorphine Scr Not Detected (Not Detect); Cannabinoid Screen Urine Not Detected (Not Detect); Cocaine Screen Urine Not Detected (Not Detect); Fentanyl, urine POSITIVE (Not Detect); Methadone Screen, Urine Positive (Not Detect); Opiate Screen Urine Not Detected (Not Detect); Oxycodone Screen Urine Not Detected (Not Detect); Phencyclidine Screen Urine Not Detected (Not Detect)
--- NOTE | 2025-01-16 21:04 | P.DS_ITS ---
DS: Providers Provider Date of Service: 01/16/25 Date of discharge: 01/16/25 Primary care physician: None Physician Consults: 01/16/25 18:03 Addiction Medicine Provider Routine Consulting Provider: Addiction Covering Reason for consultation: Med mangement -- SVT after starting methadone; cannot tolerate suboxone DS: Diagnosis Discharge Diagnosis (1) SVT (supraventricular tachycardia): Status: Acute DS: Summary Hospital Course Hospital Course: From admitting HPI: Pt is a 49-year-old female with a PMH significant for?polysubstance use disorder on methadone, migraines, anxiety and depression who presents to the ED with?palpitations. Pt reports symptoms began around noon this afternoon when she was standing at the sink and suddenly felt ?weird? with lightheadedness, racing heart, and tingling in arms. Also experienced a sense of impending doom and feeling the room closing in on her. Looked at her Apple Watch that indicated a HR in the 200s. Pt called a nurse friend that told he to come to the hospital for evaluation. Pt has long hx of anxiety with recurrent panic attacks often featuring tachycardia. However, pt states never experienced such severe symptoms before. Of note, pt reports was started on methadone 40 mg this morning at around 9:30. Pt reports was previously on methadone a few years ago and was able to tolerated without complications, but eventually weaned herself off. Was also on Suboxone though she reports it led to severe tooth decay. Pt has chronic musculoskeletal pain, especially in right hand. pt has been buying pills that has been labeled oxycodone off the street, though pt is unaware of their exact contents were dosage, and believes they are laced with fentanyl. Has been taking 5+ pills daily with last use yesterday night. Pt denies chest pain/pressure. No SOB or difficulty breathing. Denies fever, chills, nausea, vomiting, abdominal pain. In the ED pt was tachycardic as high as 200, tachypneic up to 25, and initially hypertensive at 146/76 Labs were grossly unremarkable and around baseline for pt. Mild normocytic anemia of 11.3/33.3. No leukocytosis. Renal and hepatic function WNL. EKG demonstrated SVT of [address] depressions in lateral leads with QTc 419. Repeat EKG showed sinus tachycardia without significant ST elevations or depressionsc and QT 461. Pt was treated in the ED with modified Valsalva maneuver which broke her SVT, was also given IVF, midazolam, diazepam, potassium chloride, and metoprolol 25 mg p.o. Pt is admitted to the hospital under observation for treatment and further evaluation of SVT. Notified by nursing that pt wanted to leave AMA. Pt seen in the ED where she is standing by the side of her bed packing her belongings and speaking on the phone arranging a ride to pick her up. Pt reports that her anxiety is ?through the roof? and she can not tolerate staying in the hospital any longer. States her anxiety will only increase, she will not be able asleep, and will only feel worse. Pt is made aware of the dangers of leaving AMA which include up to a recurrence of SVT with fatal arrhythmia. Pt also counseled on returning to the ED if she again experiences palpitations and racing heart. Pt also told that m ethadone is a possible contributing factor to her SVT, and she should return to clinic tomorrow to see about alternative therapies. pt is advised to discontinue taking methadone for now. pt also counseled to stop taking the street oxycodone she has been purchasing. Time Attestation Discharge Coordination Time (in mins): 25 Quality: Safe Use of Opioids Does Pt have an Active Cancer Diagnosis on the Problem List?: No Quality: Stroke Does the patient have a stroke diagnosis?: No Physical Exam Vital Signs: Vital Signs: Last Vital Signs Temp 97.9 F 01/16/25 14:58 Pulse 86 01/16/25 18:55 Resp 14 01/16/25 18:55 BP 104/72 01/16/25 18:55 Pulse Ox 98 01/16/25 18:55 O2 Del Method Room Air 01/16/25 18:55 BMI result Body Mass Index 27.6 Pt left AMA DS: Data Data Completed and Pending Labs on day of discharge: Laboratory Results - last 24 hr 01/16/25 01/16/25 13:38 18:07 WBC 10.2 RBC 3.88 L Hgb 11.3 L Hct 33.3 L MCV 85.8 MCH 29.1 MCHC 33.9 RDW 13.7 Plt Count 263 MPV 9.2 L Immature Gran % (Auto) 0.5 H Neut % (Auto) 69.9 Lymph % (Auto) 19.3 L [place] % (Auto) 8.3 Eos % (Auto) 1.3 Baso % (Auto) 0.7 Lymph # (Auto) 2.0 [place] # (Auto) 0.8 Eos # (Auto) 0.1 Baso # (Auto) 0.1 Abs Immat Gran (auto) 0.05 H Absolute Neuts (auto) 7.1 Absolute Nucleated RBC 0.000 Nucleated RBC % (auto) 0.0 Sodium 142 Potassium 3.7 Chloride 110 H Carbon Dioxide 23 Anion Gap 13 BUN 14 Creatinine 0.67 Estim Creat Clear Calc 90.4 Estimated GFR > 60 Random Glucose 81 Calcium 8.7 D Magnesium 2.1 Total Bilirubin 0.2 AST 23 ALT 18 Alkaline Phosphatase 53 Total Protein 6.6 Albumin 3.9 Salicylates < 5.0 L Urine Opiates Screen Not Detected Ur Buprenorphine Scrn Not Detected Ur Oxycodone Screen Not Detected Urine Methadone Screen Positive H Urine Fentanyl Screen POSITIVE H Acetaminophen < 3 Ur Barbiturates Screen Not Detected Ur Phencyclidine Scrn Not Detected Ur Amphetamines Screen POSITIVE H U Benzodiazepines Scrn POSITIVE H Urine Cocaine Screen Not Detected U Marijuana (THC) Screen Not Detected Ethyl Alcohol < 10 Discharge Plan Discharge Clinical Impression: SVT (supraventricular tachycardia) Patient Disposition: Left Against Medical Advice Prescriptions: Continued citalopram 20 mg tablet 20 mg PO DAILY dextroamphetamine-amphetamine 20 mg tablet 20 mg PO BID alprazolam 2 mg tablet 2 mg PO DAILY PRN (Reason: Anxiety) lorazepam 1 mg tablet 2 mg PO BEDTIME PRN (Reason: Anxiety) ibuprofen 200 mg Tablet 800 mg PO Q12H PRN (Reason: Pain) Discontinued methadone 10 mg/mL Concentrate 40 mg PO DAILY Referrals: Physician,None [Primary Care Provider] - Stand Alone Forms: Against Medical Advice Print Language: Wallisian
--- OUTSIDE RECORDS SUMMARY | 2025-01-20 17:10 | XMS_ITS | Encounter Summary ---
Author Organization [address] [address] Care Team Providers Care Assistance Representative Name Role Phone Unavailable Primary Care Provider Unavailabl e Encounter Details Date Type Department Care Team (Late st Contact Info) Description 2015 Scanned Document [address] [place] [address] [phone] Provider, Generic Social History Tobacco Use Types [...]
--- OUTSIDE RECORDS SUMMARY | 2025-01-20 17:10 | XMS_ITS | Clinical Summary ---
Author Organization [facility] Address [address] [place] [address] Care Team Providers Care Cost Clerk Name Role Phone Unavailable Primary Care Provider [...] patient's age to complete this topic Insurance [facility] [employer] [address] [place] [address] MEDICAID OUT OF STATE [facility] [place] [address] OUT OF STATE - [facility]
--- OUTSIDE RECORDS SUMMARY | 2025-01-20 17:10 | XMS_ITS | Clinical Summary ---
Author Organization [facility] Address [address] [place] [address] Care Team Providers Care Oracle Fusion Developer Name Role Phone Melanie Lowery MD Primary Care Provider [phone] Allergies Active Allergy Reactions Criticality Noted Date [...] age to complete this topic Care Teams Oracle Fusion Developer Relationship Specialty Start Date End Date Melanie Lowery MD [address] [phone] PCP - General Internal Medicine 04/14/18
--- OUTSIDE RECORDS SUMMARY | 2025-01-20 17:10 | XMS_ITS | Clinical Summary ---
Author Organization [facility] Address [address] [place] [address] Phone Care Team Providers Care Geoduck Diver Name Role Phone Physician, Pcp Unknown Primary [...] EDT - 01/13/2025 9:29 AM EDT Emergency [facility] Emergency [address] [place] [address] Emotional distress (Primary Dx); Anxiety Discharge Disposition: Home or Self Care from Last 3 Months Surgical History Surgery Date Site/Laterality Comments ESOPHAGOGASTRODUODENOSCOPY 05/02/16 PROCEDURE: CA EGD TRANSORAL BIOPSY SINGLE/MULTIPLE; COMMENT: linear antral [...] Father Stroke Father Other cancer Maternal Grandfather [facility] [place] Stroke Maternal Grandmother Hyperlipidemia Mother Hypertension [...] in 1 hour) (01/13/2025 6:42 AM EDT) [facility] High Sensitivity Troponin I <3 <=54 ng/L LAB CHEMISTRY METHOD 01/13/2025 8:36 AM EDT [facility] Blood Venous blood specimen / Unknown Venipuncture / Unknown 01/13/2025 6:42 AM EDT 01/13/2025 7:34 AM EDT Narrative [facility] - 01/13/2025 8:36 AM EDT High levels of biotin in samples may falsely decrease hsTroponin values. ??Use caution when interpreting hsTroponin results in patients taking biotin who exhibit renal impairment (eGFR <60) or in patients taking more than 20 mg/day of biotin. Irais HANKINS LAB BLOOD ORDERABLES Final Res ult [facility] [address] [place] [address], * Thyroid stimulating hormone with reflex to free t4 and free t3 (TSH Reflex) (01/13/2025 6:42 AM EDT) [facility] TSH 0.54 0.40 - 4.00 mcIU/mL LAB CHEMISTRY METHOD 01/13/2025 10:07 AM EDT [facility] Blood Venous blood specimen / Unknown Venipuncture / Unknown 01/13/2025 6:42 AM EDT 01/13/2025 7:34 AM EDT us Irais HANKINS LAB BLOOD ORDERABLES Final Res ult [facility] [address] [place] [address], [place] [phone] * (ABNORMAL) CBC auto differential (01/13/2025 6:42 AM EDT) WBC 9.1 4.8 - 10.8 K/mcL LAB HEMETOLOGY METHOD 01/13/2025 7:39 AM EDT [facility] RBC 4.30 3.80 - 4.80 M/mcL LAB HEMETOLOGY METHOD 01/13/2025 7:39 AM [facility] Hemoglobin 12.3 11.5 - 16.0 g/dL LAB HEMETOLOGY METHOD 01/13/2025 7:39 AM [facility] Hematocrit 37.4 35.0 - 47.0 % LAB HEMETOLOGY METHOD 01/13/2025 7:39 AM [facility] MCV 88.0 79.0 - 98.0 FL LAB HEMETOLOGY METHOD 01/13/2025 7:39 AM [facility] MCH 28.9 27.0 - 32.0 pcg LAB HEMETOLOGY METHOD 01/13/2025 7:39 AM [facility] MCHC 32.9 32.0 - 37.0 g/dL LAB HEMETOLOGY METHOD 01/13/2025 7:39 AM [facility] RDW 14.0 11.0 - 15.0 % LAB HEMETOLOGY METHOD 01/13/2025 7:39 AM [facility] Platelets 313 130 - 400 K/mcL LAB HEMETOLOGY METHOD 01/13/2025 7:39 AM [facility] MPV 9.9 7.0 - 11.0 FL LAB HEMETOLOGY METHOD 01/13/2025 7:39 AM [facility] NRBC 0.0 <1.0 % LAB HEMETOLOGY METHOD 01/13/2025 7:39 AM [facility] NRBC Absolute 0.00 <0.10 K/mcL LAB HEMETOLOGY METHOD 01/13/2025 7:39 AM [facility] Neutrophils Relative 61.4 % LAB HEMETOLOGY METHOD 01/13/2025 7:39 AM [facility] Lymphocytes Relative 23.9 % LAB HEMETOLOGY METHOD 01/13/2025 7:39 AM [facility] Monocytes Relative 11.5 % LAB HEMETOLOGY METHOD 01/13/2025 7:39 AM [facility] Eosinophils Relative 1.8 % LAB HEMETOLOGY METHOD 01/13/2025 7:39 AM [facility] Basophils Relative 1.0 % LAB HEMETOLOGY METHOD 01/13/2025 7:39 AM [facility] Immature Granulocytes Relative 0.4 % LAB HEMETOLOGY METHOD 01/13/2025 7:39 AM [facility] Neutrophils Absolute 5.61 1.50 - 7.00 K/mcL LAB HEMETOLOGY METHOD 01/13/2025 7:39 AM [facility] Lymphocytes Absolute 2.18 1.00 - 5.00 K/mcL LAB HEMETOLOGY METHOD 01/13/2025 7:39 AM [facility] Monocytes Absolute 1.05(H) 0.20 - 1.00 K/mcL LAB HEMETOLOGY METHOD 01/13/2025 7:39 AM [facility] Eosinophils Absolute 0.16 0.00 - 0.50 K/mcL LAB HEMETOLOGY METHOD 01/13/2025 7:39 AM EDT [facility] Basophils Absolute 0.09 0.00 - 0.20 K/[facility] LAB HEMETOLOGY METHOD 01/13/2025 7:39 AM EDT [facility] Immature Granulocytes Absolute 0.04(H) 0.00 - 0.03 K/[facility] LAB HEMETOLOGY METHOD 01/13/2025 7:39 AM EDT [facility] Blood Venous blood specimen / Unknown Venipuncture / Unknown 01/13/2025 6:42 AM EDT 01/13/2025 7:34 AM EDT us Irais HANKINS LAB BLOOD ORDERABLES Final Res ult [facility] [address] [place] [address], * Methadone level (01/13/2025 6:42 AM EDT) [facility] Methadone Serum <25.0 ng/mL 4:06 AM EDT [facility] Comment: Methadone - Serum Reference Ranges: ?Therapeutic Range (Analgesic): ??100 - ??400 ng/mL ?Addiction Therapy Range: ?100 - 1000 ng/mL ?Toxic level range: ? >2000 ng/mL If applicable, any drug confirmation testing reported here was developed and the performance characteristics determined by [facility]. This confirmation testing has not been cleared or approved by the FDA. The laboratory is regulated under CLIA as qualified to perform high-complexity testing. This test is used for patient testing purposes. It should not be regarded as investigational or for research. Test performed at [facility], [facility] [place], [place] ??[address] ? [phone] Callie Prado MD, PhD - Claims Technician Blood Venous blood specimen / Unknown Venipuncture / Unknown 01/13/2025 6:42 AM EDT 01/13/2025 7:34 AM EDT Irais HANKINS LAB BLOOD ORDERABLES Final Res ult Performing Organization Address City/[facility]/ZIP Co de Phone Number [facility] [address] [place] [address] * Magnesium (01/13/2025 6:42 AM EDT) Magnesium 2.0 1.9 - 2.6 mg/dL LAB CHEMISTRY METHOD 01/13/2025 9:38 AM EDT [facility] Blood Venous blood specimen / Unknown Venipuncture / Unknown 01/13/2025 6:42 AM EDT 01/13/2025 7:34 AM EDT [facility] [place] LAB BLOOD ORDERABLES Final Res ult Performing Organization Address [facility] de Phone Number [facility] [address] [place] [address], [place] [phone] * Ethanol (01/13/2025 6:42 AM EDT) Ethanol Level <3 0 - 10 mg/dL LAB CHEMISTRY METHOD 01/13/2025 9:39 AM EDT [facility] Blood Venous blood specimen / Unknown Venipuncture / Unknown 01/13/2025 6:42 AM EDT 01/13/2025 7:34 AM EDT [facility] BLOOD ORDERABLES Final Res ult Performing Organization Address [facility] de Phone Number [facility] [address] [place] [address], [place] [phone] * (ABNORMAL) Acetaminophen level (01/13/2025 6:42 AM EDT) Acetaminophen Level <2.0(L) 10.0 - 30.0 mcg/mL LAB CHEMISTRY METHOD 01/13/2025 9:39 AM EDT [facility] Blood Venous blood specimen / Unknown Venipuncture / Unknown 01/13/2025 6:42 AM EDT 01/13/2025 7:34 AM EDT [place] LAB BLOOD ORDERABLES Final Res ult Performing Organization Address [facility] de Phone Number [facility] [address] [place] [address], [place] [phone] * (ABNORMAL) Salicylate level (01/13/2025 6:42 AM EDT) Salicylate Level <1.7(L) 2.0 - 29.0 mg/dL LAB CHEMISTRY METHOD 01/13/2025 9:38 AM EDT [facility] Blood Venous blood specimen / Unknown Venipuncture / Unknown 01/13/2025 6:42 AM EDT 01/13/2025 7:34 AM EDT [place] LAB BLOOD ORDERABLES Final Res ult Performing Organization Address [facility] de Phone Number [facility] [address] [place] [address], [place] [phone] * ECG 12 lead (01/13/2025 6:36 AM EDT) Ventricular Rate ECG 108 BPM GEMUSE Atrial Rate 108 BPM GEMUSE P-R Interval 118 ms GEMUSE QRS Duration 76 ms GEMUSE Q-T Interval 338 ms GEMUSE QTc 452 ms GEMUSE P Wave [place] 62 degrees GEMUSE R [place] 12 degrees GEMUSE T [place] 46 degrees GEMUSE ECG Interpretation Sinus tachycardia Otherwise normal ECG When compared with ECG of 07-FEB-2021 04:56, T wave inversion no longer evident in Inferior leads Confirmed by DIANA STILL ([id number]) on 01/14/2025 12:43:42 PM GEMUSE 01/13/2025 6:36 AM EDT 01/14/2025 12:43 PM EDT us Irais HANKINS ECG ORDERABLES Final Result GEMUSE from Last 3 Months Insurance [facility] MEDICAID ADVANTAGE Care Teams Geoduck Diver Relationship Specialty Start Date End Date Physician, Pcp Unknown PCP - General 01/13/25
== END 2025-01-17 01:30 | disposition left against medical advice (07) | DRG 201 ==
LOC: HO.ED 20:58 → HO.EDOVER 01-20 15:37
PROVIDERS: Admitting Provider Student in an Organized Health Care Education/Training Program; Emergency Provider Emergency Medicine; Visit Provider Student in an Organized Health Care Education/Training Program
DX: I47.10 Supraventricular tachycardia, unspecified (principal); F11.90 Opioid use, unspecified, uncomplicated; F41.9 Anxiety disorder, unspecified; F90.9 Attention-deficit hyperactivity disorder, unspecified type; D50.8 Other iron deficiency anemias; M79.641 Pain in right hand; Z79.899 Other long term (current) drug therapy
CPT/HCPCS: 36415; 80053; 80143; 80179; 80307; 83735; 85025; 93005; 96361; 96374; 99222; 99285; J2250

== ENCOUNTER → 2025-01-16 13:14 | Outpatient (BNV) | payer MEDICAID, SELFPAY | PROVIDERS: Emergency Provider Emergency Medicine; Visit Provider Internal Medicine Cardiovascular Disease | DX: I47.10 Supraventricular tachycardia, unspecified (principal) | CPT/HCPCS: 93010 ==

== ENCOUNTER → 2025-01-16 15:44 | Outpatient (BNV) | payer OTHER, SELFPAY | PROVIDERS: Admitting Provider Student in an Organized Health Care Education/Training Program; Emergency Provider Emergency Medicine; Visit Provider Student in an Organized Health Care Education/Training Program | DX: I47.10 Supraventricular tachycardia, unspecified (principal) | CPT/HCPCS: 99222 ==